=== PATIENT | male | born 1960 | race Caucasian/White ===

== ENCOUNTER → 2020-07-30 09:29 | Outpatient (REF) | payer OTHER, SELFPAY ==
--- NOTE | 2020-07-30 10:24 | ECG_ITS ---
Hook-up date: 2020-07-30 10:09:00 Duration: 47:59:00 Test Indications: PALPITATIONS Medications: 70061 QRS complexes 4 Ventricular ectopics which represent <1 % of total QRS comp. 413 Supraventricular ectopics which represent <1 % of total QRS comp. * Paced QRS complexs which represent % of total QRS comp. VENTRICULAR ECTOPY 4 Isolated 0 Bigeminal Cycles 0 Couplets 0 Runs 0 Beats in Runs * Beats LONGEST at * BPM at :: -- * Beats FASTEST at * BPM at :: -- SUPRAVENTRICULAR ECTOPY 339 Isolated 8 Couplets 9 Runs 58 Beats in Runs 13 Beats LONGEST at 83 BPM at 23:19:48 2020-07-30 4 Beats FASTEST at 145 BPM at 00:51:26 2020-07-31 HEART RATES 49 MIN at 16:34:53 2020-07-30 66 AVG 100 MAX at 23:14:11 2020-07-30 LONGEST RR 1.2480 secs at 16:34:53 2020-07-30 S-T LEVELS Channel 1 - 128 mm at 10:09:00 2020-07-30 - 128 mm at 10:09:00 2020-07-30 Channel 2 - 128 mm at 10:09:00 2020-07-30 - 128 mm at 10:09:00 2020-07-30 Channel 3 - 128 mm at 02:92:81 -- - 128 mm at 02:92:81 Basic rhythm Normal sinus rhythm No long pause or profound bradycardia Occasional Premature atrial complexes 2 short jovani of SVE c/w SVT, longest 5 beats at 143 bpm Patient did not report any symptoms in the diary Referred By: Shruthi Carrera Overread By: RUBÉN SHELBY MD
== END ==
LOC: HO.CARD 09:29
PROVIDERS: PCP Internal Medicine; Visit Provider Internal Medicine
DX: R00.2 Palpitations (principal)
CPT/HCPCS: 93225; 93226

== ENCOUNTER 2021-07-13 18:49 | Outpatient (REF) | payer OTHER, SELFPAY ==
--- NOTE | ~2021-07-13 | MR_ITS ---
EXAMINATION: MR LUMBAR SPINE WITHOUT CONTRAST CLINICAL INFORMATION: 60-year-old with low back pain. COMPARISON: None TECHNIQUE: MRI of the lumbar spine was obtained using routine sequences without contrast. FINDINGS: Coronal Alignment: Normal. Sagittal Alignment: Trace retrolisthesis at L2-L3 noted. Otherwise the lumbosacral spine is anatomically aligned with normal lordotic curvature. Lumbosacral Junction: Normal. Vertebral Bodies: Normal height. Disc Spaces and Endplates: Predominantly moderate intervertebral disc space height loss between L2-L3 and L5-S1 inclusive with multilevel disc desiccation and [id number] degrees of anterolateral spondylosis at these levels. Schmorl's nodes are noted at L2-L3. Spinal Canal: No abnormal developmental findings. Bone Marrow: Type I degenerative marrow signal changes seen along the endplates at L2-L3 with type II marrow signal changes along the endplates at L3-L4. Otherwise bone marrow signal intensity appears within normal limits. Conus Medullaris: Terminates at L1. Morphology and signal is normal. Intradural Nerve Roots: Within normal limits. L5-S1: Mild diffuse disc bulging is noted with a small right-sided inferior foraminal disc herniation which contacts the right L5 nerve root sleeve without nerve root compression or displacement. There is [id number] bilateral facet arthropathy without significant spinal canal stenosis. Mild right-sided neural foraminal narrowing noted. L4-L5: Small right subarticular to foraminal disc protrusion noted without neural impingement. Minimal posterior disc osteophyte complex noted with a superimposed left subarticular to inferior foraminal disc protrusion. Bscy-mf-lziormky bilateral facet arthropathy noted. Slight narrowing of the left subarticular zone noted with no significant central spinal canal stenosis. There is minimal foraminal narrowing on the left without neural impingement. L3-L4: Mild disc bulging is noted with a superimposed left paramedian to subarticular disc protrusion, with flattening of the dural sac slightly asymmetric to the left and mild facet arthropathy noted. No significant central spinal canal stenosis. There is mild bilateral subarticular recess narrowing and mild bilateral foraminal narrowing without definite neural impingement. L2-L3: Disc bulging is noted with superimposed bilateral extraforaminal/foraminal disc osteophyte complexes with slight flattening of the ventral dural sac and mild facet arthrosis without significant canal stenosis. There is mild foraminal narrowing bilaterally without neural impingement. L1-L2: Normal disc contour. No significant facet arthrosis, canal or neural foraminal stenosis. Paraspinal/Retroperitoneal: The paravertebral soft tissues are unremarkable. There is a partially imaged 4.3 cm cystic structure arising exophytically from the lower pole of the right kidney. Due to artifacts from presaturation pulse, it is not possible to determine if this is a simple-appearing cyst. Recommend renal ultrasound. MR/MR lumbar spine wo con IMPRESSION: 1. Multilevel DDD and spondylosis, with multilevel disc bulging between L2-L3 and L5-S1 inclusive with small right inferior foraminal disc herniation at L5-S1, bilateral subarticular to foraminal disc herniations at L4-L5, left paramedian to subarticular disc protrusion at L3-L4 and bilateral foraminal/extraforaminal disc osteophyte complexes at L2-L3 as detailed above. No significant central spinal canal stenosis. Mild degrees of multilevel subarticular recess narrowing as detailed above. 2. Multilevel bilateral facet arthropathy noted with predominantly mild degrees of multilevel bilateral neural foraminal narrowing. 3. A 4.3 cm cystic-appearing structure arising exophytically from the lower pole of the right kidney. Recommend renal ultrasound follow up as this cannot be determined to be a simple-appearing cyst on this exam. The [facility] staff will call to confirm receipt of this report with acknowledgement of the findings and any recommendations.
== END 2021-07-13 18:50 | disposition home or self-care (01) ==
LOC: HO.MRI 18:49
PROVIDERS: Visit Provider Internal Medicine
DX: M54.50 Low back pain, unspecified (principal)
CPT/HCPCS: 72148

== ENCOUNTER 2021-08-12 15:23 | Outpatient (REF) | payer OTHER, SELFPAY ==
--- NOTE | ~2021-08-12 | US_ITS ---
EXAMINATION: US RETROPERITONEAL COMPLETE (RENAL) CLINICAL INFORMATION: Renal cyst. COMPARISON: Previous lumbar spine MRI June 2021 and renal ultrasound November 2009. TECHNIQUE: Real-time imaging of the kidneys and bladder. FINDINGS: RIGHT KIDNEY: 13.6 x 6.6 x 6.7 cm (SAG x AP x TRV). The kidney is normal in size, contour, and echogenicity. Renal cortical thickness is normal. There is a 3.3 x 4.6 x 3.4 cm simple cyst in the lower pole and 1.3 x 1.4 x 1.6 cm simple cyst in the midpole. There is a 1.2 x 1.9 x 1.3 cm echogenic lesion in the upper pole suggestive of an angiomyolipoma. This measured 1.7 x 1.4 x 1.5 cm on November 2009 ultrasound and does not appear appreciably changed. There is a 6 mm echogenic density with twinkle artifact in the midpole questionable for a stone. No hydronephrosis. LEFT KIDNEY: 11.1 x 5.7 x 6.5 cm (SAG x AP x TRV). The kidney is normal in size, contour, and echogenicity. Renal cortical thickness is normal. There is a 2.2 x 1.9 x 3.1 cm slightly complex cyst in the midpole with single thin septation. There is a 5 mm echogenic density in the lower pole with twinkle artifact questionable for a stone. No hydronephrosis. BLADDER: Well distended and normal. Bilateral ureteral jets are demonstrated. Prevoid bladder volume is 179 mL. Postvoid bladder volume is 15 mL. US/US retroperitoneal comp IMPRESSION: Bilateral renal cysts. Question bilateral renal stones. 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
== END 2021-08-12 15:24 | disposition home or self-care (01) ==
LOC: HO.US 15:23
PROVIDERS: PCP Internal Medicine; Visit Provider Internal Medicine
DX: N28.1 Cyst of kidney, acquired (principal); M54.50 Low back pain, unspecified
CPT/HCPCS: 76770

== ENCOUNTER 2021-09-12 08:22 | Outpatient (REF) | payer OTHER, SELFPAY ==
[2021-09-12 09:39] LABS: Estimated Average Glucose 100 mg/dL; Hemoglobin A1c % 5.1 %
[2021-09-12 09:59] LABS: Alanine Aminotransferase 27 U/L (0-40); Albumin Level 4.3 g/dL (3.5-5.0); Alkaline Phosphatase 63 U/L (39-117); Anion Gap 10 (12-20); Aspartate Amino Transferase 23 U/L (5-37); Bilirubin Total 1.1 mg/dL (0.0-1.0); Blood Urea Nitrogen 12 mg/dL (9-16); Calcium 9.6 mg/dL (8.4-10.2); Carbon Dioxide 31 mmol/L (22-29); Chloride 106 mmol/L (96-108); Cholesterol 169 mg/dL; Estimated Glomerular Filt Rate > 60; Glucose Random 107 mg/dL (60-115); HDL Cholesterol 33 mg/dL; LDL Cholesterol Calculated 112 mg/dl; Potassium 4.2 mmol/L (3.3-5.1); Sodium 143 mmol/L (135-145); Total Protein 6.7 g/dL (6.5-8.0); Triglycerides 120 mg/dL
[2021-09-12 10:01] LABS: Appearance Urine CLEAR; Color Urine YELLOW; Glucose Urine UA NEG (NEG); Leukocyte Esterase Urine NEG (NEG); Nitrite Urine NEG (NEG); Specific Gravity - Urine 1.025 (1.005-1.025); Urine Blood TRACE (NEG); Urine Ketones NEG (NEG); Urine Protein 1+ MG/DL (NEG-TRACE)
[2021-09-12 10:21] LABS: Prostate Specific Antigen Scr 1.07 ng/mL (<0.05-4.0); Thyroid Stimulating Hormone 1.37 uIU/mL (0.32-4.0)
[2021-09-12 10:47] LABS: Mucus Urine TRACE /LPF; RBC Urine 0-2 /HPF (0); WBC Urine 0 /HPF (0-4)
[2021-09-12 11:01] LABS: Folate 7.3 ng/mL (> or = 4.0); Vitamin B12 203 pg/mL (200-900)
== END 2021-09-12 08:23 | disposition home or self-care (01) ==
LOC: HO.LAB 08:22
PROVIDERS: PCP Internal Medicine; Visit Provider Internal Medicine
DX: Z12.5 Encounter for screening for malignant neoplasm of prostate (principal); M54.50 Low back pain, unspecified; E78.00 Pure hypercholesterolemia, unspecified
CPT/HCPCS: 36415; 80053; 80061; 81001; 81003; 82607; 82746; 83036; 84153; 84439; 84443

== ENCOUNTER → 2021-10-28 08:56 | Outpatient (BNVA) | payer OTHER, SELFPAY | PROVIDERS: PCP Internal Medicine; Visit Provider Urology | DX: R39.15 Urgency of urination (principal); N52.9 Male erectile dysfunction, unspecified; D17.71 Benign lipomatous neoplasm of kidney; N28.1 Cyst of kidney, acquired | CPT/HCPCS: 51798; 99202 ==

== ENCOUNTER 2023-02-12 15:46 | Outpatient (AMB) | payer OTHER, SELFPAY ==
--- NOTE | 2023-02-12 15:47 | A.OFFPC_ITS ---
Intake Visit Reasons: follow up/ stroke Allergies lisinopril Allergy (Unknown, Verified 02/12/23 15:47) Unknown Medication List - Last Reconciled 02/12/23 by Shruthi Carrera MD [UNDER PADS disposable As directed] [adult briefs w/ tabs (Extra Large) As directed] amlodipine 10 mg PO DAILY apixaban (Eliquis) 5 mg PO BID [arm trough for wheelchair As directed] atorvastatin 40 mg PO DAILY baclofen 10 mg PO BID PRN 90 days cholecalciferol (vitamin D3) 125 mcg PO DAILY [commode w/ adjustment handle sides (for extra wide seat) As directed] Coreg (carvedilol) 12.5 mg PO BID NS Cozaar (losartan) 100 mg PO DAILY 90 days NS cyanocobalamin (vitamin B-12) 1,000 mcg PO DAILY diclofenac sodium 1% 4 grams topical QID docusate sodium 100 mg PO BID PRN gabapentin 600 mg (2 x 300 mg) PO DAILY 30 days [GAIT BELT As directed] [GLOVES as needed] [Hospital bed trapeze As directedshower chair w/ back and hospital bed trapeze] nystatin 1 appl topical TID nystatin PO sennosides 17.2 mg PO BEDTIME [Shower chair shower chair w/ back and hospital bed trapeze] [transfer CHAIR regular chair will not fit through doors] trazodone 50 mg PO BEDTIME PRN walker As directed front wheels with left side platform [wheelchair cushion As directed] [WIPES As directed] Tobacco use date assessed: 02/12/23 Fall risk assessment: No Falls in past year Last assessed Fall Risk: 02/12/23 Dental Screening Dental Screen Date: 02/12/23 HPI follow up/ stroke HPI Details 62-year-old obese male with hypertension lumbar degenerative disc disease GERD hypercholesterolemia last seen through telehealth January 12 2023 comes in today for follow-up through Telehealth patient was admitted to the hospital 10/01/2022 suffering a right basal ganglia stroke with right lateral intraventricular hemorrhage. Transferred to [facility] left facial droop dysarthria dysphagia left-sided weakness. Course complicated by kidney injury and aspiration pneumonia transferred to rehab developed sudden onset of chest pain, hemoptysis hypoxemia brought to [facility] Gen found to have pulmonary embolism and left lower extremity October 2022 sent back to [facility] on anticoagulation discharge home physical therapy patient mostly bed ridden and incontinent of urine and feces patient requires 1-2 person assist to the commode DVT review of the notes [facility] and able to expand services due to staffing patient informed the next step is rehab but declined history of intraparenchymal hematoma involving the right thalamus and posterior limb of the right internal capsule incidentally showing 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 Patient has dysarthria with a right gaze preference left nasal labial fold flattening left lower extremity withdrawal to noxious stimuli patient also has a history of hip fracture October 2022. Patient had blood work 01/31/2020 with hemoglobin at 13.1 and hematocrit o f 38.9. Noted to have a potassium 3.4 LDL of 47seen Neuro and advised MRI - askig for help with tranasportation PT 1 form. [facility] Medical History (Updated 02/12/23 @ 16:30 by Shruthi Carrera MD) Aortic dilatation Elevated blood pressure reading GERD (gastroesophageal reflux disease) Hypercholesterolemia Impaired glucose tolerance Obesity (BMI 30-39.9) Pulmonary nodule Renal cyst, left Urinary incontinence Vitamin B12 deficiency Vitamin D deficiency Surgical History History of inguinal hernia repair History of tonsillectomy Family History Father Bone cancer Mother Acute CVA (cerebrovascular accident) Social History Housing: House Alcohol intake: current Patient Tobacco Use Status: Never used Tobacco e-Cigarette/Vaping Use: Never Used Second Hand Smoke Exposure: No Current occupational status: employed Cognitive needs: No Hearing needs: No Vision needs: No Questionnaire PHQ-9 Over the last 2 weeks, how often have you been bothered by any of the following problems? 1. Little interest or pleasure in doing things: not at all 2. Feeling down, depressed, or hopeless: not at all 3. Trouble falling or staying asleep, or sleeping too much: not at all 4. Feeling tired or having little energy: not at all 5. Poor appetite or overeating: not at all 6. Feeling bad about yourself - or that you are a failure or have let yourself or your family down: not at all 7. Trouble concentrating on things, such as reading the newspaper or watching t elevision: not at all 8. Moving or speaking so slowly that other people could have noticed. Or the opposite - being so fidgety or restless that you have been moving around a lot more than usual: not at all 9. Thoughts that you would be better off or of hurting yourself in some way: not at all Total score: 0 Depression Screening Interpretation: Negative Source: Developed by Drs. Sanchez Rivera, Mike Ozuna and colleagues, with an educational tremayne from [employer]. Thrive Questionnaire Date Thrive assessed: 12/27/22 AUDIT C Alcohol Use Questionnaire (AUDIT-C) 1. How often do you have a drink containing alcohol?: Monthly or less 2. How many drinks containing alcohol do you have on a typical day when you are drinking?: 1 or 2 3. How often do you have six or more drinks on one occasion?: Never Total Score: 1 BRISEIDA-7 AMB Questionnaire BRISEIDA-7 Date BRISEIDA - 7 assessed: 12/27/22 Source: Developed by Drs. Sanchez Rivera, Britt Burr, Mike Aponte and colleagues, with an educational tremayne from [employer]. Physical exam (Primary Care) Tobacco/Smoking Status: Tobacco use Status Tobacco use date assessed 02/12/23 02/12/23 15:55 Patient Tobacco Use Status Never used Tobacco 02/12/23 15:55 e-Cigarette/Vaping Use Never Used 02/12/23 15:55 PHQ-9: PHQ-9 Score PHQ-9: Total score 0 02/12/23 16:11 Depression Screening Interpretation: Negative Thrive Assessment: Date of Thrive Assessment Date Thrive assessed 12/27/22 02/12/23 15:55 Telehealth Telehealth Location of provider rendering services: practice address Location of patient: address on file Patient Identification confirmed using: Name, : Yes Telehealth method: video ([phone] ) Patient verbally consented to treatment: Yes Patient verbally consented to billing insurance company: Yes Patient informed of any privacy concerns related to visit: Yes Minutes spent on Phone/Video with Pt.: 25 Assessment and Plan Assessment & Plan (1) Impaired glucose tolerance: Code(s): R73.02 - Impaired glucose tolerance (oral) Plan: Decrease the amount of carbohydrate intake, pasta, bread, rice and potatoes are all sugar and that is aside from all the sweet stuff, remember that fruits are good but they are Sweet also. (2) Hypercholesterolemia: Code(s): E78.00 - Pure hypercholesterolemia, unspecified Plan: Avoid fried foods, chicken skin, eggs, butter margarine, pastries and meat. Be it pork or beef they have a lot of cholesterol Patient is on atorvastatin 40 mg once a day LDL goal of less than 70 and triglyceride of less than (3) GERD (gastroesophageal reflux disease): Code(s): K21.9 - Gastro-esophageal reflux disease without esophagitis Plan: Avoid the foods that causes that usually spicy foods, tomato products, juices, coffee, soda and foods that your sensitive to. After eating do not lie down, allow 3-4 hours before in lie down. And keep the head of bed above 30 degrees to avoid the acid from going up. 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 Right lateral intraventricular hemorrhage incidental small saccular aneurysm distal M1 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 complicated by aspiration pneumonia sent to [facility] for physical therapy dysarthria a right gaze preference left nasolabial flattening left lower extremity withdrawal to noxious stimuli. Acute onset shortness of breath October 2022 pulmonary embolism centrally at the left right pulmonary artery level with multifocal pneumonia hip fracture right hip posterior acetabular rim October 2022 Code(s): I26.99 - Other pulmonary embolism without acute cor pulmonale Plan: continue with anticoagulation with Eliquis (7) Left leg DVT: Code(s): I82.402 - Acute embolism and thrombosis of unspecified deep veins of left lower extremity Plan: continue with anticoagulation with Eliquis (8) Hypertension: Code(s): I10 - Essential (primary) hypertension Plan: Continue with blood pressure medication. Decrease salt intake and exercise continue with amlodipine 10 mg once a day Coreg 12.5 mg twice a day Cozaar 75 mg once a day (9) Vitamin D deficiency: Code(s): E55.9 - Vitamin D deficiency, unspecified (10) Anemia: Code(s): D64.9 - Anemia, unspecified Orders: Orders Ferritin Today D64.9 - Anemia, unspecified IRON PROFILE Today D64.9 - Anemia, unspecified Reticulocyte Count Today D64.9 - Anemia, unspecified Vitamin B12 and Folate Today D64.9 - Anemia, unspecified Complete Blood Count Auto Diff Today D64.9 - Anemia, unspecified Medications: Changed From Cozaar (losartan) 75 mg (3 x 25 mg) PO DAILY 90 days 270 tabs 1RF NS I10 - Essential (primary) hypertension To Cozaar (losartan) 100 mg PO DAILY 90 days 90 tabs 1RF NS I10 - Essential (primary) hypertension From gabapentin 600 mg (2 x 300 mg) PO DAILY 30 days 60 caps 1RF I63.9 - Cerebral infarction, unspecified To gabapentin 600 mg (2 x 300 mg) PO DAILY 90 days 180 caps 1RF I63.9 - Cerebral infarction, unspecified Refilled apixaban (Eliquis) 5 mg PO BID 180 tabs 3RF I26.99 - Other pulmonary embolism without acute cor pulmonale, I82.402 - Acute embolism and thrombosis of unspecified deep veins of left lower extremity Coreg (carvedilol) must administer with a meal/food, patient choice 12.5 mg PO BID 180 tabs 3RF NS I10 - Essential (primary) hypertension amlodipine 10 mg PO DAILY 90 tabs 3RF I10 - Essential (primary) hypertension atorvastatin 40 mg PO DAILY 90 tabs 3RF E78.00 - Pure hypercholesterolemia, unspecified cholecalciferol (vitamin D3) 125 mcg PO DAILY 90 caps 3RF E55.9 - Vitamin D deficiency, unspecified Coding Level of Care Code Tele Est Pt Level 4 (20247) Diagnoses Impaired glucose tolerance R73.02 Hypercholesterolemia E78.00 GERD (gastroesophageal reflux disease) K21.9 CVA (cerebral vascular accident) I63.9 Cerebral aneurysm I67.1 Pulmonary embolism I26.99 Left leg DVT I82.402 Hypertension I10 Vitamin D deficiency E55.9 Anemia D64.9
--- OUTSIDE RECORDS SUMMARY | 2023-02-12 15:48 | XMS_ITS | Continuity of Care Document ---
Author Name Unknown Organization [facility] Address [address] [place] [id number] Care Team Providers Care Occup Ther Name Role Phone Shruthi Carrera MD Primary Care Physician [phone] [facility] [place]s): 12/13/22 - 01/12/[address] [id number] Attending Physician: Not on Staff, Attending MD Admitting Physician: Not on Staff, Admitting MD Referring Physician: Not on Staff, Referring MD Allergies, Adverse Reactions, Alerts Substance Reaction Severity Status lisinopril Joint pain Persistent cough Active Medications valsartan 80 mg oral tablet 80 mg, 1, tablet, By Mouth, Daily, Refills 0, Maintenance, 11/29/21 13:29:00 EDT, Partial fill uponpatient request if the prescription is for a schedule II opioid drug. Start Date: 11/29/21 Status: Ordered Patient Care team information Care Team Personnel Name: Shruthi Carrera MD Position: Reference Physician Member Role: PCP Address: Address: [address] [place] [id number] Care Team Related Persons Name: REMIGIO ATPIA Address: home [address] [place] [address]
--- OUTSIDE RECORDS SUMMARY | 2023-02-12 15:48 | XMS_ITS | Continuity of Care Document ---
Author Name Unknown Organization [facility] Address [address] [place] [id number]- Care Team Providers Care Tap Puller Name Role Phone Po Shruthi FRAZIER Primary Care Physician Encounter [facility] Date(s): 02/01/23 - 02/08/23 [facility] [address] [place] [address]- Encounter Diagnosis Pulmonary embolism(Discharge Diagnosis) - 02/01/23 Attending Physician: Dwayne Blakely MD Admitting Physician: Dwayne Blakely MD Referring Physician: Bree Bella NP Allergies, Adverse Reactions, Alerts Substance Reaction Severity Status lisinopril Joint pain Persistent cough Active Medications amLODIPine 10 mg oral tablet 0 Refills, Maintenance, 02/01/23 15:22:00 EDT, Partial fill upon patient request if the prescription is for a schedule II opioid drug. Start Date: 02/01/23 Status: Ordered atorvastatin 40 mg oral tablet 0 Refills, Maintenance, 02/01/23 15:22:00 EDT, Partial fill upon patient request if the prescription is for a schedule II opioid drug. Start Date: 02/01/23 Status: Ordered baclofen 10 mg oral tablet 10 mg, 1, tablet, By Mouth, 3 times a day, hold afternoon dose if drowsy, # 90 tablet, Refills 6, Tot. Refills 6, Maintenance, 02/08/23 9:44:00 EDT, Route to Pharmacy Electronically, [facility]/pharmacy #[id number], Partial fill upon patient request if the prescri... Start Date: 02/08/23 Stop Date: 09/06/23 Status: Ordered BACLOFEN 10 MG TABLET BACLOFEN 10 MG TABLET, 0 Refills, Maintenance, 02/01/23 15:23:00 EDT Start Date: 02/01/23 Status: Ordered Bilateral Juxtafit Knee-high Compression Garments with 2 pairs of liners Bilateral Juxtafit Knee-high Compression Garments with 2 pairs of liners, See Instructions, # 1 kit, Refills 0, Tot. Refills 0, Maintenance, Dx: Lymphedema Use daily up to 23 hours per day., 02/01/2315:43:00 EDT, Supply Start Date: 02/01/23 Status: Ordered carvedilol 12.5 mg oral tablet Refills 0, Maintenance, 02/01/23 15:22:00 EDT, Partial fill upon patient request if the prescription is for a schedule II opioid drug. Start Date: 02/01/23 Status: Ordered Cozaar 25 mg oral tablet Refills 0, Maintenance, 02/01/23 15:22:00 EDT, Partial fill upon patient request if the prescription is for a schedule II opioid drug. Start Date: 02/01/23 Status: Ordered diclofenac 1% topical gel 0 Refills, Maintenance, 02/01/23 15:22:00 EDT, Partial fill upon patient request if the prescription is for a schedule II opioid drug. Start Date: 02/01/23 Status: Ordered docusate sodium 100 mg oral capsule 0 Refills, Maintenance, 02/01/23 15:23:00 EDT, Partial fill upon patient request if the prescription is for a schedule II opioid drug. Start Date: 02/01/23 Status: Ordered Eliquis 5 mg oral tablet 0 Refills, Maintenance, 02/01/23 15:23:00 EDT, Partial fill upon patient request if the prescription is for a schedule II opioid drug. Start Date: 02/01/23 Status: Ordered ergocalciferol 8000 iu/ml oral solution 0 Refills, Maintenance, 02/01/23 15:23:00 EDT, Partial fill upon patient request if the prescription is for a schedule II opioid drug. Start Date: 02/01/23 Status: Ordered gabapentin 300 mg oral capsule Refills 0, Maintenance, 02/01/23 15:22:00 EDT, Partial fill upon patient request if the prescription is for a schedule II opioid drug. Start Date: 02/01/23 Status: Ordered nystatin topical 418060 u/gm powder 0 Refills, Maintenance, 02/01/23 15:22:00 EDT, Partial fill upon patient request if the prescription is for a schedule II opioid drug. Start Date: 02/01/23 Status: Ordered Super-Strength D-5000 oral tablet 0 Refills, Maintenance, 02/01/23 15:22:00 EDT, Partial fill upon patient request if the prescription is for a schedule II opioid drug. Start Date: 02/01/23 Status: Ordered traZODone 50 mg oral tablet Refills 0, Maintenance, 02/01/23 15:22:00 EDT, Partial fill upon patient request if the prescription is for a schedule II opioid drug. Start Date: 02/01/23 Status: Ordered valsartan 80 mg oral tablet 80 mg, 1, tablet, By Mouth, Daily, Refills 0, Maintenance, 11/29/21 13:29:00 EDT, Partial fill uponpatient request if the prescription is for a schedule II opioid drug. Start Date: 11/29/21 Status: Ordered Vitamin B-12 1000 mcg oral tablet Refills 0, Maintenance, 02/01/23 15:22:00 EDT, Partial fill upon patient request if the prescription is for a schedule II opioid drug. Start Date: 02/01/23 Status: Ordered Problem List Condition Confirmation Course Effective Dates Status H ealth Status Informant Hypertensive disorder 1 Confirmed 10/22/22 Active Intraparenchymal hemorrhage of brain 2 Confirmed 10/11/22 Active Pulmonary embolism 3 Confirmed 10/22/22 Active 1Outside Source Comment: Last Assessment & Plan: #HTN BP stable since admission. Patient symptomatically resolving and PE stable. No signs of RV strain or hypotension. -Continue coreg -Restart amlodipine and losartan 10/26. 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 Dysphagia: HIDES INSPECTOR Sleep: Monitoring Trazodone 50 mg qhs Behavior: Monitoring Neurostimulation: Monitoring Amantadine 100 mg daily dc'ed Mood: Monitoring Pain: Tylenol 650 mg q6h prn Gabapentin 300 mg qhs Diclofenac gel 4 times daily DVT Prophylaxis: Therapeutic anticoagulation Encourage mobility, monitor for signsand symptoms of DVT Bowel/FEN/GI: Timed voiding Titrate to home regimen, change q1-2 days Adult/Pediatric nutrition supplements Supplement: Ensure Plus High Protein [place]; Number of servings: One; Frequency: Breakfast, Dinner Therapeutic trial tray per HIDES INSPECTOR Therapeutic trial tray per HIDES INSPECTOR Diet Dysphagia; Minced and moist (IDDSI 5); Thin (IDDSI 0); Swallow safety instructions: Group/Distant Supervision Bladder: Timed voiding Dysuria-UA and Ucx 10/30 negative Safety/precautions: Fall, aspiration Other medical problems #GPC blood cultures ID consult Repeat cultures 10/31 #PE #LLE DVT Apixaban 10 mg BID, ED 10/31 Apixaban 5 mg BID, 11/01- (3-6 mo duration) Outpatient US #Pneumonitis Levofloxacin 750 mg, ED 10/31 #HTN (144-154)/(85-90) 154/90 (11/26 1548) Amlodipine 10 mg daily Losartan 75 mg daily Coreg 12.5 mg BID #HLD Atorvastatin 40 mg daily #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 Reassuringly no hemodynamic instability and no evidence of RV strain on TTE and CT chest. Currently stable on 2L O2. For systemic AC, he started on heparin gtt, and per vascular recs and neurosurgery clearance (given stable CTH and neuro exams), switched to apixaban on 10/25. Symptomatically, patient feels improvement in his pleuriticpain. -CT Chest: with PE at L/R PA level, multifocal triangular nodular opacities, and diffuse bronchial wall thicken ing with evidence of mucus plugging. - TTE: no evidence of acute RV strain. Plan: -Start apixaban 5mg bid (10mg loading) -Appreciate vascular medicine and NSGY recs Diagnosis Diagnosis Type Effective Dates Health Status Cl inical Service Informant Pulmonary embolism Discharge Diagnosis 02/01/23 Procedures Procedure Date Related Diagnosis Body Site Status History of repair of inguinal hernia Completed History of tonsillectomy Completed Vital Signs Most recent to oldest [Reference Range]: 1 Height 188 cm (02/01/23 3:23 PM) Weight 100 kg (02/01/23 3:23 PM) Oxygen Saturation [94-100 %] 97 % (02/01/23 3:23 PM) Pulse Rate [55-90 bpm] 63 bpm (02/01/23 3:23 PM) Body Mass Index [18.5-24.99 kg/m2] 28.29 kg/m2 *H* (02/01/23 3:23 PM) Blood Pressure [90-138/55-84 mm Hg] 144/ 90mm Hg *H* (02/01/23 3:23 PM) Mode of Delivery (Oxygen) Room air (02/01/23 3:23 PM) Blood pressure sites Arm, right (02/01/23 3:23 PM) Weight Obtained Via Patient/family state d (02/01/23 3:23 PM) Social History Social History Type Response Smoking Status Never (less than 100 in lifetime) entered on: 02/01/23 Sex Patient Care team information Care Team Personnel Name: Shruthi Carrera MD Position: Reference Physician Member Role: PCP Address: Address: [address] [place] [address]- Care Team Related Persons Name: REMIGIO TAPIA Address: home [address] [place] [address]
--- OUTSIDE RECORDS SUMMARY | 2023-02-12 15:48 | XMS_ITS | Continuity of Care Document ---
Author Name Unknown Organization [facility] Address [address] [place] [id number]- Care Team Providers Care Sprinkler Inspector Name Role Phone Po Shruthi FRAZIER Primary Care Physician Encounter [facility] Date(s): 01/09/23 - 02/08/23 [facility] [address] [place] [address]- Allergies, Adverse Reactions, Alerts Substance Reaction Severity [...] EDT, Route to Pharmacy Electronically, [facility]/pharmacy #[id number], Partial fill upon patient request if the [...] Start Date: 02/01/23 Status: Ordered nystatin topical 740379 u/gm powder 0 Refills, Maintenance, 02/01/23 15:22:00 [...] Plan: Enroll in CVA rehab program R [facility] NIHSS: 13 TPA: no IA: no Secondaryprevention: MCT BP as noted below Statin as noted below Follow up: 12/21 1300 stroke, [place] Mobility/ADL Dysfunction/Cognition: 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 Dysphagia: EMERGENCY CREW SUPERVISOR Sleep: Monitoring Trazodone 50 mg qhs Behavior: Monitoring Neurostimulation: Monitoring Amantadine 100 mg daily dc'ed Mood: Monitoring Pain: Tylenol 650 mg q6h prn Gabapentin 300 mg qhs Diclofenac gel 4 times daily DVT Prophylaxis: Therapeutic anticoagulation Encourage mobility, monitor for signsand symptoms of DVT Bowel/FEN/GI: Timed voiding Titrate to home regimen, change q1-2 days Adult/Pediatric nutrition supplements Supplement: Ensure Plus High Protein [place]; Number of servings: One; Frequency: Breakfast, Dinner Therapeutic trial tray per EMERGENCY CREW SUPERVISOR Therapeutic trial tray per EMERGENCY CREW SUPERVISOR Diet Dysphagia; Minced and moist (IDDSI 5); [...] loading) -Appreciate vascular medicine and NSGY recs Social History Social History Type Response Smoking Status Never (less than 100 in lifetime) entered on: 02/01/23 Sex Patient Care team information Care Team Personnel Name: Shruthi Carrera MD Position: Reference Physician Member Role: PCP Address: Address: [address] [place] [id number]- Care Team Related Persons Name: REMIGIO TAPIA Address: home [address] [place] [id number]
== END 2023-02-12 16:45 | disposition home or self-care (01) ==
LOC: HO.HMGH 15:46
PROVIDERS: PCP Internal Medicine; Visit Provider Internal Medicine
DX: R73.02 Impaired glucose tolerance (oral) (principal); K21.9 Gastro-esophageal reflux disease without esophagitis; I82.402 Acute embolism and thrombosis of unspecified deep veins of left lower extremity; I26.99 Other pulmonary embolism without acute cor pulmonale; I67.1 Cerebral aneurysm, nonruptured; E78.00 Pure hypercholesterolemia, unspecified; I63.9 Cerebral infarction, unspecified; I10 Essential (primary) hypertension; E55.9 Vitamin D deficiency, unspecified; D64.9 Anemia, unspecified
CPT/HCPCS: 99214

== ENCOUNTER 2023-03-12 17:18 | Outpatient (AMB) | payer OTHER, SELFPAY ==
--- NOTE | 2023-03-12 17:20 | A.OFFPC_ITS ---
Intake Visit Reasons: Allergic reaction/ [phone] Allergies lisinopril Allergy (Unknown, Verified 03/12/23 17:20) Unknown Tobacco use date assessed: 02/12/23 Fall risk assessment: No Falls in past year Last assessed Fall Risk: 03/12/23 Dental Screening Dental Screen Date: 03/12/23 Did you have a dental visit in the last 12 months?: Yes Did you have a dental problem in the last 6 months where you did not have access to dental care?: No Was dental information given to patient?: Patient has dentist HPI Allergic reaction/ [phone] HPI Details 62-year-old obese male with a history of CVA impaired glucose tolerance hypercholesterolemia GERD pulmonary embolism cerebral aneurysm left leg DVT hypertension coming in for follow-up through Telehealth. Last seen for tele health January 2023 blood work was requested adjustment of blood pressure done. With the CVA(intracerebral hemorrhage involving right basal ganglia posterior limb internal capsule) disability left hemiplegia and loss of motor function patient was referred for physical therapy and the [facility]. Patient has seen Neurology [facility] advised 120/80 goal of blood pressure advised MRI of the brain 3 months follow-up on the right MCA aneurysm disability left upper extremity lack of movement long-term disabled left shoulder sling to avoid subluxation of the left shoulder baclofen increase 10 mg 3 times a day ant icoagulation for 6 months and depending on vascular/palmar avoid NSAIDs concern about sleep study also. Patient has beendoing PT and OT occurs pain on the legs still. BP at home is am 140/90 after BP med still wanting brand name of cozaar and coreg although discussed - hard Patient feels that brand name make this better. Patient asking me to call the insurance company to approve of brand name Cozaar and Coreg as the patient feels that in [place] general that they were using the brand name which controls the blood pressure better than the generic. Patient on physical therapy complains of left knee pain and wants an x-ray. Patient states the blood pressure remains to be high in the morning but once taking the medication would drop to normal levels. Decline increasing dose of medication and insistent on brand name prescription. [facility] Medical History (Updated 03/12/23 @ 18:17 by Shruthi Carrera MD) Aortic dilatation Elevated blood pressure reading GERD (gastroesophageal reflux disease) Hypercholesterolemia Impaired glucose tolerance Obesity (BMI 30-39.9) Pulmonary nodule Renal cyst, left Urinary incontinence Vitamin B12 deficiency Vitamin D deficiency Surgical History History of inguinal hernia repair History of tonsillectomy Family History (Updated 03/12/23 @ 17:21 by Daniela Valero [facility]) Father Bone cancer Mother Acute CVA (cerebrovascular accident) Social History Housing: House Alcohol intake: current Patient Tobacco Use Status: Never used Tobacco e-Cigarette/Vaping Use: Never Used Second Hand Smoke Exposure: No Current occupational status: employed Cognitive needs: No Hearing needs: No Vision needs: No Questionnaire PHQ-9 Over the last 2 weeks, how often have you been bothered by any of the following problems? 1. Little interest or pleasure in doing things: not at all 2. Feeling down, depressed, or hopeless: not at all 3. Trouble falling or staying asleep, or sleeping too much: not at all 4. Feeling tired or having little energy: not at all 5. Poor appetite or overeating: not at all 6. Feeling bad about yourself - or that you are a failure or have let yourself or your family down: not at all 7. Trouble concentrating on things, such as reading the newspaper or watching television: not at all 8. Moving or speaking so slowly that other people could have noticed. Or the opposite - being so fidgety or restless that you have been moving around a lot more than usual: not at all 9. Thoughts that you would be better off or of hurting yourself in some way: not at all Total score: 0 Depression Screening Interpretation: Negative Source: Developed by Drs. Sanchez Rivera, Britt Burr, Mike Aponte and colleagues, with an educational tremayne from [employer]. Thrive Questionnaire Date Thrive assessed: 12/27/22 AUDIT C Alcohol Use Questionnaire (AUDIT-C) 1. How often do you have a drink containing alcohol?: Monthly or less 2. How many drinks containing alcohol do you have on a typical day when you are drinking?: 1 or 2 3. How often do you have six or more drinks on one occasion?: Never Total Score: 1 BRISEIDA-7 AMB Questionnaire BRISEIDA-7 Date BRISEIDA - 7 assessed: 12/27/22 Source: Developed by Drs. Sanchez Rivera, Britt Burr, Mike Aponte and colleagues, with an educational tremayne from [employer]. Physical exam (Primary Care) Tobacco/Smoking Status: Tobacco use Status Tobacco use date assessed 02/12/23 03/12/23 17:21 Patient Tobacco Use Status Never used Tobacco 03/12/23 17:21 e-Cigarette/Vaping Use Never Used 03/12/23 17:21 PHQ-9: PHQ-9 Score PHQ-9: Total score 0 03/12/23 17:21 Depression Screening Interpretation: Negative Thrive Assessment: Date of Thrive Assessment Date Thrive assessed 12/27/22 03/12/23 17:21 Telehealth Telehealth Location of provider rendering services: practice address Location of patient: address on file Patient Identification confirmed using: Name, : Yes Telehealth method: video ([phone] ) Patient verbally consented to treatment: Yes Patient verbally consented to billing insurance company: Yes Patient informed of any privacy concerns related to visit: Yes Minutes spent on Phone/Video with Pt.: 25 Assessment and Plan Assessment & Plan (1) CVA (cerebral vascular accident): Comment: 09/30/2022 intraparenchymal hematoma involving the right thalamus and posterior limb of the right internal capsule incidentally small saccular aneurysm involving the distal M1 segment of the right middle cerebral artery measuring 2.2 mm from based apex 61-year-old male left facial droop and left-sided weakness 2.8 cm right basal ganglia intraparenchymal hemorrhage with 2 mm MLS. Right lateral intraventricular hemorrhage incidental small saccular aneurysm distal M1 [facility] 10/11/2022 pulmonary embolism on anticoagulation , aspiration pneumonia Code(s): I63.9 - Cerebral infarction, unspecified Plan: Control the cholesterol, weight, blood pressure (2) Cerebral aneurysm: Comment: September intraparenchymal hematoma involving the right thalamus and posterior limb of the right internal capsule incidentally small saccular aneurysm involving the distal M1 segment of the right middle cerebral artery measuring 2.2 mm from based apex Code(s): I67.1 - Cerebral aneurysm, nonruptured Plan: Patient follows up with Neurology. MRI requested 3 months after (3) Pulmonary embolism: Comment: 62-year-old hypertension, right basal ganglia and right lateral intraventricular hemorrhage residual left-sided deficit recent aspiration pneumonia September 2022 M1 aneurysm neurosurgery September 30 [facility] complicated by aspiration pneumonia sent to [facility] for physical therapy dysarthria a right gaze preference left nasolabial flattening left lower extremity withdrawal to noxious stimuli. Acute onset shortness of breath October 2022 pulmonary embolism centrally at the left right pulmonary artery level with multifocal pneumonia hip fracture right hip posterior acetabular rim October 2022 Code(s): I26.99 - Other pulmonary embolism without acute cor pulmonale Plan: Continue with anticoagulation (4) Left leg DVT: Code(s): I82.402 - Acute embolism and thrombosis of unspecified deep veins of left lower extremity Plan: Continue with anticoagulation (5) Hypercholesterolemia: Code(s): E78.00 - Pure hypercholesterolemia, unspecified Plan: Avoid fried foods, chicken skin, eggs, butter margarine, pastries and meat. Be it pork or beef they have a lot of cholesterol LDL goal of less than 70 and triglyceride of less than 150 (6) Hypertension: Code(s): I10 - Essential (primary) hypertension Plan: Continue with blood pressure medication. Decrease salt intake and exercise patient is on amlodipine 10 mg once a day Coreg 12.5 mg twice a day Cozaar 75 mg once a day. Will try to get the number/prior authorization for brand names of Cozaar and Coreg (7) Left knee pain: Code(s): M25.562 - Pain in left knee Orders: Orders XR knee LT 2V Today M25.562 - Pain in left knee Coding Level of Care Code Tele Est Pt Level 4 (62503) Diagnoses CVA (cerebral vascular accident) I63.9 Cerebral aneurysm I67.1 Pulmonary embolism I26.99 Left leg DVT I82.402 Hypercholesterolemia E78.00 Hypertension I10 Left knee pain M25.562
--- OUTSIDE RECORDS SUMMARY | 2023-03-12 17:20 | XMS_ITS | Continuity of Care Document ---
Author Name Unknown Organization [facility] Address [address] [place] [phone]- Care Team Providers Care E Commerce Manager Name Role Phone Po Shruthi FRAZIER Primary Care Physician Encounter 12/14/22 - 02/23/23 [facility] [address] [place] [address]- Discharge Disposition: GOALS MET Allergies, Adverse Reactions, Alerts Substance Reaction Severity [...] 02/08/23 9:44:00 EDT, Route to Pharmacy Electronically, [facility]/pharmacy #[id number], Partial fill upon patient request if the [...] Start Date: 02/01/23 Status: Ordered nystatin topical 917680 u/gm powder 0 Refills, Maintenance, 02/01/23 15:22:00 [...] Plan: Enroll in CVA rehab program R [facility] NIHSS: 13 TPA: no IA: no Secondaryprevention: MCT BP as noted below Statin as noted below Follow up: 12/21 1300 stroke, [place] Mobility/ADL Dysfunction/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 Sleep: Monitoring Trazodone 50 mg qhs Behavior: Monitoring Neurostimulation: Monitoring Amantadine 100 mg daily dc'ed Mood: Monitoring Pain: Tylenol 650 mg q6h prn Gabapentin 300 mg qhs Diclofenac gel 4 times daily DVT Prophylaxis: Therapeutic anticoagulation Encourage mobility, monitor for signsand symptoms of DVT Bowel/FEN/GI: Timed voiding Titrate to home regimen, change q1-2 days Adult/Pediatric nutrition supplements Supplement: Ensure Plus High Protein [place]; Number of servings: One; Frequency: Breakfast, Dinner Therapeutic trial tray per TERMINAL MANAGER Therapeutic trial tray per TERMINAL MANAGER Diet Dysphagia; Minced and moist (IDDSI 5); [...] Reference Physician Member Role: PCP Address: Address: [address] [place] [address]- Care Team Related Persons Name: REMIGIO TAPIA Address: home [address] [place] [address]
--- OUTSIDE RECORDS SUMMARY | 2023-03-12 17:20 | XMS_ITS | Continuity of Care Document ---
Author Name Unknown Organization [facility] Address [address] [facility], [address] Floor, [address] [place] [id number] Care Team Providers Care Internal Corrosion Specialist Name Role Phone Po Shruthi FRAZIER Primary Care Physician Encounter [facility] Date(s): 02/08/23 - 03/10/23 [facility] [address], [address], [address] [place] [id number]- Attending Physician: Jamey [id number] Admitting Physician: AdmtrToy Referring Physician: Admtr, Ar8 Allergies, Adverse Reactions, Alerts Substance Reaction Severity [...] 02/08/23 9:44:00 EDT, Route to Pharmacy Electronically, [facility]/pharmacy #[id number], Partial fill upon patient request if the [...] Start Date: 02/01/23 Status: Ordered nystatin topical [id number] u/gm powder 0 Refills, Maintenance, 02/01/23 15:22:00 [...] 1300 stroke, [place] Mobility/ADL Dysfunction/Cognition: 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: SANITOR Sleep: Monitoring Trazodone 50 mg qhs Behavior: Monitoring Neurostimulation: Monitoring Amantadine 100 mg daily dc'ed Mood: Monitoring Pain: Tylenol 650 mg q6h prn Gabapentin 300 mg qhs Diclofenac gel 4 times daily DVT Prophylaxis: Therapeutic anticoagulation Encourage mobility, monitor for signsand symptoms of DVT Bowel/FEN/GI: Timed voiding Titrate to home regimen, change q1-2 days Adult/Pediatric nutrition supplements Supplement: Ensure Plus High Protein Sieper; Number of servings: One; Frequency: Breakfast, Dinner Therapeutic trial tray per SANITOR Therapeutic trial tray per SANITOR Diet Dysphagia; Minced and moist (IDDSI 5); Thin (IDDSI 0); Swallow safety instructions: Group/Distant Supervision Bladder: Timed voiding Dysuria-UA and Ucx 10/30 negative Safety/precautions: Fall, aspiration Other medical problems #GPC blood cultures ID consult Repeat cultures 10/31 #PE #LLE DVT Apixaban 10 mg BID, ED 10/31 Apixaban 5 mg BID, 11/01- (3-6 mo duration) Outpatient #Pneumonitis Levofloxacin 750 mg, ED 10/31 #HTN [...] Reference Physician Member Role: PCP Address: Address: [address] [place] [id number]- [place] Care Team Related Persons Name: REMIGIO TAPIA Address: home [address] [place] [address]
== END 2023-03-13 10:51 | disposition home or self-care (01) ==
LOC: HO.HMGH 17:18
PROVIDERS: PCP Internal Medicine; Visit Provider Internal Medicine
DX: I10 Essential (primary) hypertension (principal); I26.99 Other pulmonary embolism without acute cor pulmonale; I82.402 Acute embolism and thrombosis of unspecified deep veins of left lower extremity; I67.1 Cerebral aneurysm, nonruptured; E78.00 Pure hypercholesterolemia, unspecified; I63.9 Cerebral infarction, unspecified; M25.562 Pain in left knee
CPT/HCPCS: 99214

== ENCOUNTER 2023-06-05 13:07 | Outpatient (AMB) | payer OTHER, SELFPAY ==
[2023-06-05 13:43] VITALS: BP 132/78; PULSE 65; O2SAT 97; BMI 32.1
--- NOTE | 2023-06-05 13:43 | A.OFFVIS_ITS ---
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 The patient is a 62-year-old gentleman who was in his usual state health until the beginning of the year when he developed an acute right-sided intraparenchymal hemorrhage and stroke with significant left-sided weakness. He was treated acutely in [facility] and then transferred to [facility] in [place]. While in rehab back in October 2022 the patient developed worsening chest discomfort pleuritic in nature along with shortness of breath hemoptysis. He was admitted to [facility] where he was diagnosed with pulmonary emboli and extensive extremity DVT in the left side. It was initially placed on heparin in neurosurgery was consulted because of his relatively recently. Is felt to be stable and the patient also was hemodynamically stable. The patient was placed on Eliquis. He has been on Eliquis ever since. He was high still having significant left lower extremity discomfort and swelling. Therefore he was referred to a vascular surgeon at [facility]. The patient did have lower extremity Dopplers done recently on May 25 it was noted to have still extensive blood clots involving the femoral brain popliteal vein with some degree of chronicity. Breathing arechiga the patient denies any further chest pains or shortness of breath. Although he is limited from a physical activity standpoint. He is currently wheelchair in does have significant limitations to the movement of the left side. On further questioning still the patient does state that even before the stroke he was having some issues with leg spasms and heaviness and discomfort of the left lower extremity. The patient denies ever having history of blood clots or family history of blood clots. Although with this symptoms that he had the question comes up as far as the possibility of previous blood clots and potentia lly of [id number] shunt that will predispose him to strokes. Therefore will have him undergo ECHO with bubble study and the patient should also undergo a repeat CTA to assess if he still has an clot burden in the lungs especially since he still has them in the like. But, with a history of intracranial hemorrhage the use of anticoagulation becomes tricky specially when you consider other agents such as Coumadin. We will do the initial evaluation but I do believe that an evaluation also from Hematology would be important in view of his comorbidities. We will start with additional blood work to assess for hypercoagulable state while we wait for the other studies. [facility] Medical History (Updated 06/05/23 @ 23:01 by Piotr Gil MD) DVT (deep venous thrombosis) Urinary incontinence Renal cyst, left GERD (gastroesophageal reflux disease) Aortic dilatation Vitamin D deficiency Obesity (BMI 30-39.9) Hypercholesterolemia Vitamin B12 deficiency Pulmonary nodule Elevated blood pressure reading Impaired glucose tolerance Surgical History History of inguinal hernia repair History of tonsillectomy Family History (Updated 03/12/23 @ 17:21 by Daniela Valero CMA) Father Bone cancer Mother Acute CVA (cerebrovascular accident) Housing: House Alcohol intake: current Patient Tobacco Use Status: Never used Tobacco e-Cigarette/Vaping Use: Never Used Second Hand Smoke Exposure: No Current occupational status: employed Cognitive needs: No Hearing needs: No Vision needs: No Review of Systems Const Denies fever(s) Eyes Reports change in vision ENT Reports change in voice Card Denies chest pain and Reports dyspnea on exertion Resp Reports dyspnea on exertion and Denies wheezing GI Denies abdominal pain Musc Reports abnormal gait Skin/Breast Denies rash Neuro Reports abnormal gait, Reports focal weakness and Reports Sensory deficit (Neuro) Gianni/Lymph Denies easy bleeding and Denies easy bruising Aller/Immun Denies wheezing Physical Exam Vital Signs: Last Vital Signs Pulse 65 06/05/23 13:43 BP 132/78 06/05/23 13:43 Pulse Ox 97 06/05/23 13:43 BMI result Body Mass Index 32.1 Const General: comfortable Orientation/consciousness: patient oriented x3 HEENT Head: Yes normocephalic Neck Neck: Yes supple Chest Chest palpation & inspection: normal inspection of the chest Resp Effort & Inspection: normal respiratory effort Auscultation: diminished lung sounds Cardio Rate: regular rate Rhythm: regular rhythm Heart sounds: S1 normal heart sound present and S2 normal heart sound present GI Palpation (GI): Soft to palpation Skin General skin exam: no rashes or lesions noted Neuro Other: left sided weakness with contractures General: patient oriented x3 Sensory Exam: Sensory deficit (Neuro) Extrem General: No clubbing and No cyanosis Results Reviewed Results Reviewed: personally reviewed data from [facility] personally reviewed the LLE dopplers Assessment & Plan Assessment & Plan (1) Left leg DVT: Comment: persistent extensive DVT LLE Code(s): I82.402 - Acute embolism and thrombosis of unspecified deep veins of left lower extremity Qualifiers: Affected thrombotic vein of extremity: femoral Chronicity: chronic Qualified Code(s): I82.512 - Chronic embolism and thrombosis of left femoral vein (2) Pulmonary embolism: Comment: October 2022 Code(s): I26.99 - Other pulmonary embolism without acute cor pulmonale Qualifiers: Pulmonary embolism type: unspecified Chronicity: chronic Acute cor pulmonale presence: without acute cor pulmonale Qualified Code(s): I27.82 - Chronic pulmonary embolism (3) CVA (cerebral vascular accident): Code(s): I63.9 - Cerebral infarction, unspecified Qualifiers: CVA mechanism: unspecified Qualified Code(s): I63.9 - Cerebral infarction, unspecified Plan Bloodwork to assess hypercoagulable state ECHO with bubble study to assess potential right to left shunt CTA to reassess chronic thrombo-embolic disease PFTs continue Eliquis BID F/U with vascular surgery re: chronic DVT on the left May benefit from a hematology consult especially with his ICB history F/U 6-8 weeks Orders: Orders Lupus Anticoagulant Panel Today I26.99 - Other pulmonary embolism without acute cor pulmonale, I82.402 - Acute embolism and thrombosis of unspecified deep veins of left lower extremity, I82.409 - Acute embolism and thrombosis of unspecified deep veins of unspecified lower extremity Protein S Activity reflex Ag Today I26.99 - Other pulmonary embolism without acute cor pulmonale, I82.402 - Acute embolism and thrombosis of unspecified deep veins of left lower extremity, I82.409 - Acute embolism and thrombosis of unspecified deep veins of unspecified lower extremity Protein C Activity Reflex Ag Today I26.99 - Other pulmonary embolism without acute cor pulmonale, I82.402 - Acute embolism and thrombosis of unspecified deep veins of left lower extremity, I82.409 - Acute embolism and thrombosis of unspecified deep veins of unspecified lower extremity CA echo transthoracic complete Today I26.99 - Other pulmonary embolism without acute cor pulmonale, I27.20 - Pulmonary hypertension, unspecified PFT pulmonary function test Today I26.99 - Other pulmonary embolism without acute cor pulmonale Factor V Leiden Today I26.99 - Other pulmonary embolism without acute cor pulmonale, I82.402 - Acute embolism and thrombosis of unspecified deep veins of left lower extremity, I82.409 - Acute embolism and thrombosis of unspecified deep veins of unspecified lower extremity Prothrombin [id number] Today I26.99 - Other pulmonary embolism without acute cor pulmonale, I82.402 - Acute embolism and thrombosis of unspecified deep veins of left lower extremity, I82.409 - Acute embolism and thrombosis of unspecified deep veins of unspecified lower extremity Anti-Thrombin III Activity Today I26.99 - Other pulmonary embolism without acute cor pulmonale, I82.402 - Acute embolism and thrombosis of unspecified deep veins of left lower extremity, I82.409 - Acute embolism and thrombosis of unspecified deep veins of unspecified lower extremity CT angio chest PE protocol Today I26.99 - Other pulmonary embolism without acute cor pulmonale Coding Level of Care Code New Pt Level 5 (15976) Diagnoses Chronic deep vein thrombosis (DVT) of femoral vein of left lower extremity I82.512 Affected thrombotic vein of extremity: femoral Chronicity: chronic Chronic pulmonary embolism without acute cor pulmonale, unspecified pulmonary embolism type I27.82 Pulmonary embolism type: unspecified Chronicity: chronic Acute cor pulmonale presence: without acute cor pulmonale Cerebrovascular accident (CVA), unspecified mechanism I63.9 CVA mechanism: unspecified Time Spent (min) 60
== END 2023-06-05 14:16 | disposition home or self-care (01) ==
PROVIDERS: PCP Internal Medicine; Referring Provider Internal Medicine; Visit Provider Hospitalist
DX: I27.82 Chronic pulmonary embolism (principal); I82.512 Chronic embolism and thrombosis of left femoral vein; I63.9 Cerebral infarction, unspecified
CPT/HCPCS: 99205

== ENCOUNTER → 2023-06-05 13:07 | Outpatient (BNVA) | payer OTHER, SELFPAY | PROVIDERS: PCP Internal Medicine; Referring Provider Internal Medicine; Visit Provider Hospitalist | DX: I82.512 Chronic embolism and thrombosis of left femoral vein (principal); I27.82 Chronic pulmonary embolism; I26.99 Other pulmonary embolism without acute cor pulmonale; I63.9 Cerebral infarction, unspecified | CPT/HCPCS: 99202 ==

== ENCOUNTER 2023-06-10 18:29 | Emergency (ER) | payer OTHER, SELFPAY ==
--- NOTE | ~2023-06-10 | CT_ITS ---
EXAMINATION: CT CHEST, ABDOMEN AND PELVIS WITH CONTRAST CLINICAL INFORMATION: Reason for Exam L rib pain s/p fall on eliquis. Hematoma L flank COMPARISON: No pertinent prior studies are available for comparison TECHNIQUE: Multidetector volumetric imaging was performed from the thoracic inlet through the pubic symphysis following the administration of: Oral contrast: No Intravenous contrast: 100 mL Omnipaque 350 No contrast reaction reported Sagittal and coronal reformatted images were obtained on the technologist workstation. This CT examination was performed using dose optimization techniques as appropriate, variously including the following: *Automated exposure control. *Adjustment of mA and/or kV according to patient size (this includes techniques or standardized protocols for targeted exams where dose is matched to indication/reason for exam; i.e. extremities or head). *Use of iterative reconstruction technique. Total exam dose-length product 445 mGy-cm FINDINGS: LUNG: No focal consolidation, nodules or masses. Hypoventilatory changes are present at both lung bases. PLEURA: Trace amount of left-sided pleural effusion is seen. No evidence of any pneumothorax. MEDIASTINUM: Normal heart size. No pericardial effusion. No hilar or mediastinal lymphadenopathy. VASCULAR: No thoracic aortic aneurysm or dissection. Central pulmonary arteries opacify normally. CHEST WALL/AXILLA: No axillary or internal mammary lymphadenopathy. LIVER, GALLBLADDER, AND BILIARY TREE: The liver is normal in size, shape, and attenuation. No focal hepatic lesion or biliary ductal dilatation is present. The gallbladder is unremarkable with no evidence of radiopaque gallstones, gallbladder wall thickening, or obvious pericholecystic inflammatory changes. PANCREAS: Normal; no mass or surrounding fluid. SPLEEN: Normal size. No focal lesion. ADRENAL GLANDS: Normal; no mass. KIDNEYS AND URETERS: The kidneys are normal in size, shape, and attenuation. No hydronephrosis, hydroureter, or calculi. Multiple circumscribed hypodense lesions are noted bilaterally, most consistent with cortical renal cysts. Subcentimeter circumscribed fat-containing lesion at mid lateral cortex of the right kidney with mean Hounsfield value of -83 (326:12) consistent with a small angiomyolipoma. GASTROINTESTINAL TRACT: Stomach and small bowel non-dilated. No colonic wall thickening or pericolonic inflammatory changes. Normal appendix. ABDOMINAL WALL: Soft tissue stranding is noted within the left lower posterior chest wall musculature and subcutaneous fat and also along the left lateral flank subcutaneous level, most consistent with inflammation/trace hematoma. No evidence of any localized discrete measurable fluid collection or hematoma is visualized. LYMPHOVASCULAR STRUCTURES: No lymphadenopathy. The aorta is unremarkable. BLADDER: Asymmetric subtle apparent soft tissue thickening is seen at the left-sided base and the left lateral inferior wall, likely secondary to occlusion by the prostate however, intrinsic abnormality is not excluded. No bladder calculi. PELVIC VISCERA: The prostate is heterogeneous, enlarged, protruding into the bladder. OSSEOUS STRUCTURES: Comminuted displaced fractures are present involving the posterolateral aspect of the left sixth, seventh and eighth ribs without any underlying detectable injury to the lung parenchyma or spleen. CT/CT abdomen pelvis w IV con IMPRESSION: 1. Comminuted displaced rib fractures at the posterolateral aspects of the left sixth through eighth ribs without evidence of any pneumothorax or splenic injury. Small volume simple appearing left-sided pleural effusion however is present. 2. No significant measurable soft tissue hematoma is identified within the left inferior posterior chest wall for within the left flank. 3. The prostate is heterogeneous and enlarged, protruding into the bladder. There is apparent subtle asymmetric soft tissue thickening seen within the bladder wall may represent changes secondary to prostatic or intrinsic bladder lesion. Clinical correlation as well as follow-up ultrasound of the bladder or direct visualization as appropriate may be considered for further clarification. 4. Incidental note is made of a subcentimeter angiomyolipoma involving the mid lateral cortex of the right kidney and presumed multifocal bilateral cortical renal cysts. No follow-up imaging is recommended.
--- NOTE | ~2023-06-10 | CT_ITS ---
EXAMINATION: CT HEAD WITHOUT CONTRAST CT CERVICAL SPINE WITHOUT CONTRAST CLINICAL INFORMATION: Reason for Exam fall COMPARISON: CT of the head done on 10/09/2022. TECHNIQUE: Imaging was performed from the skull base to vertex without intravenous administration of contrast. In addition, helical noncontrast CT imaging was acquired through the cervical spine and source images were reviewed along with axial reconstructions and sagittal and coronal MPRs. This CT examination was performed using dose optimization techniques as appropriate, variously including the following: *Automated exposure control. *Adjustment of mA and/or kV according to patient size (this includes techniques or standardized protocols for targeted exams where dose is matched to indication/reason for exam; i.e. extremities or head). *Use of iterative reconstruction technique. Total exam dose-length product 852.37 (head) and 498.42 (cervical spine) mGy-cm FINDINGS: HEAD: No intracranial mass, hemorrhage, or midline shift is visualized. The ventricles and sulci are unremarkable. Focal hypodensity at the site of right thalamic hemorrhage is consistent with focal encephalomalacia. Subtle hypodensity within the ipsilateral anterior part of the midbrain is also noted. No extra-axial collections are identified. The paranasal sinuses and mastoid air cells are well aerated. CERVICAL SPINE: Moderate diffuse osteopenia and multilevel degenerative spondylosis related changes are noted. There is no evidence of acute cervical spine fracture. Vertebral bodies remain normal in height, and alignment is anatomic. No prevertebral or paravertebral soft tissue abnormality is identified. Limited assessment of the lung apices is unremarkable for curvilinear focal calcification within the posterior part of the right lung apex. CT/CT cervical spine wo IV con IMPRESSION: 1. No acute intracranial pathology. Focal hypodensity corresponding to the site of previously documented right thalamic hemorrhage and subtle hypodensity within the ipsilateral anterior part of the right-sided mid brain are noted. 2. No CT evidence of acute cervical spine fracture or traumatic subluxation.
[2023-06-10 18:35] VITALS: BP 196/110; PULSE 70; O2SAT 99; BMI 27.6
[2023-06-10 18:39] VITALS: BP 177/95; PULSE 70; RESP 18; TEMP 36.7; O2SAT 96
--- NOTE | 2023-06-10 18:48 | ED.FALL ---
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 states patient was attempting to ambulate with walker when fell onto left side on table, unknown head trauma, denies LOC. reports headache and left side/back pain. Denies symptoms prior to fall including lightheadedness/dizziness, CP/SOB, hematuria. Denies abdominal pain, nausea/vomiting. At baseline ambulates with walker, with assistance MD complaint: fall Related Data Home Medications Medication Instructions Recorded Confirmed nystatin 100,000 unit/mL oral PO 12/27/22 02/12/23 suspension cyanocobalamin (vitamin B-12) 1,000 mcg PO DAILY 06/05/23 1,000 mcg tablet losartan 100 mg tablet (Cozaar) 100 mg PO DAILY 06/05/23 Previous Rx's Medication Instructions Recorded GAIT BELT #1 ea 12/13/22 walker #1 ea 12/21/22 arm trough for wheelchair #1 ea 12/26/22 wheelchair cushion #1 ea 12/26/22 cyanocobalamin (vitamin B-12) 1,000 mcg PO DAILY #90 caps 12/27/22 1,000 mcg capsule diclofenac sodium 1 % topical gel 4 g topical QID knee pain #100 12/27/22 grams docusate sodium 100 mg capsule 100 mg PO BID PRN constipation 12/27/22 #180 caps sennosides 17.2 mg tablet 17.2 mg PO BEDTIME #90 tabs 12/27/22 trazodone 50 mg tablet 50 mg PO BEDTIME PRN sleep #90 tabs 12/27/22 UNDER PADS disposable #300 ea 01/01/23 GLOVES #3 ea 01/01/23 WIPES #1 ea 01/01/23 adult briefs w/ tabs (Extra Large) #120 ea 01/01/23 commode w/ adjustment handle sides #1 ea 01/01/23 (for extra wide seat) Hospital bed trapeze #1 ea 01/09/23 Shower chair #1 ea 01/09/23 nystatin 100,000 unit/gram topical 1 appl topical TID #60 grams 01/09/23 powder baclofen 10 mg tablet 10 mg PO BID PRN muscle spasm 90 01/12/23 days #180 tabs transfer CHAIR #1 ea 01/17/23 amlodipine 10 mg tablet 10 mg PO DAILY #90 tabs 02/12/23 apixaban 5 mg tablet (Eliquis) 5 mg PO BID #180 tabs 02/12/23 atorvastatin 40 mg tablet 40 mg PO DAILY #90 tabs 02/12/23 cholecalciferol (vitamin D3) 125 125 mcg PO DAILY #90 caps 02/12/23 mcg (5,000 unit) capsule gabapentin 300 mg capsule 600 mg (2 x 300 mg) PO DAILY 90 02/12/23 days #180 caps Cozaar 25 mg tablet (losartan) 75 mg (3 x 25 mg) PO DAILY 90 days 02/23/23 #270 tabs carvedilol 12.5 mg tablet 12.5 mg PO BID #180 tabs 04/09/23 tramadol 50 mg tablet 50 mg PO Q6H PRN severe pain 06/10/23 (scale score 7-10) #14 tabs Allergies Allergy/AdvReac Type Severity Reaction Status Date / Time lisinopril Allergy Unknown Unknown Verified 06/10/23 18:35 Review of Systems Review of Systems: Constitutional: No Fever, No Chills, No Fatigue, No Malaise ENT/Mouth: No Ear Pain, No Nasal Congestion, No sore throat, No Rhinorrhea, No Swallowing Difficulty Eyes: No Eye Pain, No Swelling, No Redness, No Vision Changes Cardiovascular: + Chest Wall Pain, No SOB Respiratory: No Cough, No Sputum, No Dyspnea Gastrointestinal: No Nausea, No Vomiting, No Diarrhea, No Constipation, No Abdominal pain Genitourinary: No Dysuria, No Urinary Frequency, + Hematuria, No Urinary Incontinence/retention,+ Flank Pain Musculoskeletal: +back pain, No Myalgias, No Joint Swelling Skin: No Skin Lesions, No rash Neuro: No Weakness, No Loss of Consciousness, No Dizziness, + Headache Yes all other systems are reviewed and are negative Constitutional: Constitutional: Reports as per [facility] Past Medical History Attestation statement: The following information was validated with the patient. Source: old records reviewed Medical History DVT (deep venous thrombosis) Urinary incontinence Renal cyst, left GERD (gastroesophageal reflux disease) Aortic dilatation Vitamin D deficiency Obesity (BMI 30-39.9) Hypercholesterolemia Vitamin B12 deficiency Pulmonary nodule Elevated blood pressure reading Impaired glucose tolerance Surgical History History of inguinal hernia repair History of tonsillectomy Family History Family History Father Bone cancer Mother Acute CVA (cerebrovascular accident) Social History Housing: House Alcohol intake: never Patient Tobacco Use Status: Never used Tobacco Smoked in Last 30 Days: No e-Cigarette/Vaping Use: Never Used Second Hand Smoke Exposure: No Advance Directives: No Advance Directives Information Provided: No Current occupational status: employed Cognitive needs: No Hearing needs: No Vision needs: No Physical Exam Vital Signs: Vital Signs: Last Vital Signs Temp 98.0 F 06/10/23 18:39 Pulse 63 06/10/23 20:22 Resp 16 06/10/23 20:22 BP 149/72 H 06/10/23 20:22 Pulse Ox 98 06/10/23 20:22 O2 Del Method Room Air 06/10/23 20:22 BMI result Body Mass Index 27.6 Const: General: cooperative, healthy appearing and no acute distress Orientation/consciousness: patient oriented x3 Limitations: no limitations HEENT: Head: Yes normal to inspection and Yes atraumatic Ears: hearing grossly normal bilaterally General nose exam: Normal external nose present Face and sinus: Yes normal facial exam Throat: Yes posterior oropharynx normal and Yes uvula midline Eyes: General: appearance normal, both eyes and all related structures Pupils: Equal, round and reactive pupils present EOM: EOMs intact bilaterally Neck: Other: C-collar in place Neck: Yes normal visual inspection and Yes no meningeal signs Chest: Other: + hematoma/swelling noted to left lower posterior lateral chest wall with tenderness to palpation. No overlying erythema/warmth + left anterior lateral lower rib tenderness to palpation No flail chest Chest palpation & inspection: no crepitus and tenderness Resp: Effort & Inspection: normal respiratory effort and no respiratory distress Auscultation: clear to auscultation bilaterally Cardio: Rate: regular rate Heart sounds: S1 normal heart sound present and S2 normal heart sound present GI: Inspection: Yes normal to inspection Palpation (GI): Soft to palpation, nontender, no guarding and not rigid : General: Yes CVA tenderness (left) Back/Spine/Pelvis: Other: No midline cervical/thoracic/lumbar spinous tenderness/step-off or deformity Back: CVA tenderness (left) Skin: Rashes: no rashes Wounds: no wounds Neuro: Other: left sided residual deficits from prior CVA General: patient oriented x3, tone normal and no meningeal signs Cranial nerves: Yes Equal, round and reactive pupils present Extrem: General: Yes normal to inspection Course Course Course Narrative: -H&H 13.6/39 (lower than prior). Labs otherwise reassuring CT head/brain wo IV con/CT cervical spine wo IV con IMPRESSION: 1. No acute intracranial pathology. Focal hypodensity corresponding to the site of previously documented right thalamic hemorrhage and subtle hypodensity within the ipsilateral anterior part of the right-sided mid brain are noted. 2. No CT evidence of acute cervical spine fracture or traumatic subluxation. -2100--ED care transferred to MICHELLE Urias pending CT results and dispo per results Reevaluation(s) Reevaluation #1: Patient received in sign-out at change of shift pending CT scan of the abdomen chest for traumatic injuries. The patient has 3 rib fractures of the left posterior lateral 6th 7th and 8th ribs. No significant hemothorax, no pneumothorax. I discussed with the patient and family as well as into the findings of renal cyst and enlarged prostate that is heterogeneous. I provided them with a copy of the CT to bring to the PCP appointment. Patient we discharged with incentive spirometry and tramadol. Time: 22:08 Medications Administered Discontinued Medications Generic Name Dose Route Start Last Admin Trade Name Kay PRN Reason Stop Dose Admin Acetaminophen 650 mg 06/10/23 18:55 06/10/23 19:07 Acetaminophen 325 Mg Tablet PO 06/10/23 18:56 650 mg ONCE ONE Administration Carvedilol 12.5 mg 06/10/23 18:55 06/10/23 19:06 Carvedilol 12.5 Mg Tablet PO 06/10/23 18:56 12.5 mg ONCE ONE Administration Protocol Cyclobenzaprine HCl 5 mg 06/10/23 18:55 06/10/23 19:06 Cyclobenzaprine Hcl 5 Mg Tablet PO 06/10/23 18:56 5 mg ONCE ONE Administration Iohexol 100 ml 06/10/23 20:04 06/10/23 20:04 Iohexol 350 Mg/Ml 100 Ml Infus..Btl IV 06/10/23 20:05 100 ml ONCE ONE Administration Tramadol HCl 50 mg 06/10/23 22:10 06/10/23 22:29 Tramadol Hcl 50 Mg Tablet PO 06/10/23 22:11 50 mg ONCE ONE Administration Medical Decision Making Medical Decision Making MDM Narrative: 62-year-old male with a past medical history PE/DVT on Eliquis, GERD, HLD, vitamin B12 deficiency, HTN, CVA with left-sided residual deficits, presenting to the ED via EMS with s/p mechanical trip and fall at home 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 On exam vital signs stable, NAD, nontoxic appearing, C-collar in place, physical exam as noted above with hematoma/swelling to left posterior lateral chest wall/flank w/tenderness and left anterior lower rib tenderness to palpation. No midline spinous tenderness throughout. Abdomen soft-nontender. Concern for ICH vs fracture vs intrathoracic/intra-abdominal bleeding/injury. Low suspicion for ACS/PE or CVA Plan: Labs, UA, Head/C-spine, chest/abdomen/pelvis CT, pain control Please refer to course for remaining clinical decision making, interpretation of labs/imaging results, and discussions with consultants and/or family members. Differential Diagnosis Differential Diagnoses: The differential diagnosis associated with the presentation includes As above Admission/Observation Consideration of admission/observation: Escalation of care including admission/observation considered Lab Data [facility] Lab Attestation statement: I reviewed the patient's lab results. 06/10/23 19:12 06/10/23 19:12 Labs: Lab Results 06/10/23 06/10/23 Range/Units 19:12 20:24 WBC 7.4 (4.8-10.8) X10*3/uL RBC 4.39 L (4.60-5.80) X10*6/uL Hgb 13.6 L (14.0-18.0) g/dl Hct 39.0 L (42.0-52.0) % MCV 88.8 (80.0-98.0) fL MCH 31.0 (27.0-33.0) pg MCHC 34.9 (31.0-36.0) g/dl RDW 11.8 (11.0-16.0) % Plt Count 226 (160-400) X10*3/uL MPV 8.5 L (9.4-12.4) fL Immature Gran % (Auto) 0.7 H (0.0-0.4) % Neut % (Auto) 60.3 (45-73) % Lymph % (Auto) 28.8 (20-40) % [place] % (Auto) 7.8 (2-11) % Eos % (Auto) 1.9 (0-4) % Baso % (Auto) 0.5 (0-2) % Lymph # (Auto) 2.1 (1.2-4.9) X10*3/uL [place] # (Auto) 0.6 (0.1-1.2) X10*3/uL Eos # (Auto) 0.1 (0.0-0.4) X10*3/uL Baso # (Auto) 0.0 (0.0-0.2) X10*3/uL Abs Immat Gran (auto) 0.05 H (0.00-0.03) X10*3/uL Absolute Neuts (auto) 4.5 (2.0-8.3) x10*3/uL Absolute Nucleated RBC 0.000 (0.0-0.012) X10*3/uL Nucleated RBC % (auto) 0.0 (0.0-0.2) /100WBC PT 15.5 H (11.1-13.3) SEC INR 1.3 H (0.9-1.1) Sodium 142 (135-145) mmol/L Potassium 3.8 (3.3-5.1) mmol/L Chloride 107 (96-108) mmol/L Carbon Dioxide 28 (22-29) mmol/L Anion Gap 11 L (12-20) BUN 15 (9-16) mg/dL Creatinine 0.98 (0.5-1.4) mg/dL Estim Creat Clear Calc 88.5 Estimated GFR > 60 Random Glucose 108 (60-115) mg/dL Calcium 9.8 (8.4-10.2) mg/dL Total Bilirubin 0.6 (0.0-1.0) mg/dL Direct Bilirubin 0.2 (0.0-0.5) mg/dL AST 24 (5-37) U/L ALT 26 (0-40) U/L Alkaline Phosphatase 61 (39-117) U/L Total Protein 7.2 (6.5-8.0) g/dL Albumin 4.3 (3.5-5.0) g/dL Lipase 51 (8-78) U/L Urine Color Yellow Urine Appearance Clear Urine pH 6.5 (5.0-9.0) Ur Specific [place] 1.020 (1.005-1.025) Urine Protein Negative (Neg-Trace) mg/dL Urine Glucose (UA) Negative (Negative) mg/dL Urine Ketones Negative (Negative) mg/dL Urine Blood Negative (Negative) Urine Nitrite Negative (Negative) Ur Leukocyte Esterase Negative (Negative) Independent Interpretation I performed an independent interpretation of an: CT Scan Radiology Impression Discussion of test interpretation with radiology: I have reviewed the radiologist's reading. Independent Historian Clinical information obtained from an independent historian. History obtained from or confirmed by: Spouse and EMS External Record Review External record reviewed: Inpatient record, Office record, Outpatient record, Prior outpatient labs, Prior outpatient radiology, Primary care record and Outside ED record Tests considered The following testing was considered but not selected: As above Prescription Management I considered prescription management with: Pain Medication Chronic Conditions Patient?s care impacted by: Hypertension and Other (CVA) Critical Care Time Critical Care Time Critical Care Time: Yes Total Critical Care Time: 45 Attestation: I have personally provided critical care time exclusive of time spent on separately billable procedures. Time includes review of lab data, radiology results, discussion with consultants, and monitoring for potential decompensation. Intervention performed as documented. Discharge Plan Discharge Clinical Impression: Fall, Ribs, multiple fractures Patient Disposition: Home, Self-Care Instructions: Rib Fracture (ED) Additional Instructions: Take Tylenol as needed for pain. Use tramadol for more severe, breakthrough pain. Take all of your other medications as prescribed. As discussed, you have 3 rib fractures on the left. Incidentally, you have enlarged prostate and should follow-up with urology at the number provided. You should also follow-up regarding a renal cyst on your right side. Prescriptions: New tramadol 50 mg tablet 50 mg PO Q6H PRN (Reason: severe pain (scale score 7-10)) Qty: 14 0RF No Action (DME) GAIT BELT See Rx Instructions .Route .MEDSUPPLY Qty: 1 0RF Rx Instructions: As directed (DME) walker Misc See Rx Instructions .Route Qty: 1 0RF Rx Instructions: As directed front wheels with left side platform (DME) arm trough for wheelchair See Rx Instructions .Route .MEDSUPPLY Qty: 1 0RF Rx Instructions: As directed (DME) wheelchair cushion See Rx Instructions .Route .MEDSUPPLY Qty: 1 0RF Rx Instructions: As directed (DME) adult briefs w/ tabs (Extra Large) See Rx Instructions .Route .MEDSUPPLY Qty: 120 11RF Rx Instructions: As directed (DME) WIPES See Rx Instructions .Route .MEDSUPPLY Qty: 1 12RF Rx Instructions: As directed (DME) GLOVES See Rx Instructions .Route .MEDSUPPLY Qty: 3 11RF Rx Instructions: as needed (DME) commode w/ adjustment handle sides (for extra wide seat) See Rx Instructions .Route .MEDSUPPLY Qty: 1 0RF Rx Instructions: As directed (DME) UNDER PADS disposable See Rx Instructions .Route .MEDSUPPLY Qty: 300 11RF Rx Instructions: As directed (DME) Hospital bed trapeze See Rx Instructions .Route .MEDSUPPLY Qty: 1 0RF Rx Instructions: As directedshower chair w/ back and hospital bed trapeze (DME) Shower chair See Rx Instructions .Route .MEDSUPPLY Qty: 1 0RF Rx Instructions: shower chair w/ back and hospital bed trapeze nystatin 100,000 unit/gram powder 1 appl topical TID Qty: 60 0RF (DME) transfer CHAIR See Rx Instructions .Route .MEDSUPPLY Qty: 1 0RF Rx Instructions: regular chair will not fit through doors losartan [Cozaar] 25 mg tablet 75 mg PO DAILY 90 Days Qty: 270 3RF carvedilol 12.5 mg tablet 12.5 mg PO BID Qty: 180 3RF Rx Instructions: must administer with a meal/food, patient choice nystatin 100,000 unit/mL suspension PO cyanocobalamin (vitamin B-12) 1,000 mcg capsule 1,000 mcg PO DAILY Qty: 90 5RF diclofenac sodium 1 % gel 4 g topical QID Qty: 100 3RF docusate sodium 100 mg capsule 100 mg PO BID PRN (Reason: constipation) Qty: 180 2RF sennosides 17.2 mg tablet 17.2 mg PO BEDTIME Qty: 90 0RF trazodone 50 mg tablet 50 mg PO BEDTIME PRN (Reason: sleep) Qty: 90 0RF Eliquis 5 mg tablet 5 mg PO BID Qty: 180 3RF amlodipine 10 mg tablet 10 mg PO DAILY Qty: 90 3RF atorvastatin 40 mg tablet 40 mg PO DAILY Qty: 90 3RF cholecalciferol (vitamin D3) 125 mcg (5,000 unit) capsule 125 mcg PO DAILY Qty: 90 3RF gabapentin 300 mg capsule 600 mg PO DAILY 90 Days Qty: 180 1RF baclofen 10 mg tablet 10 mg PO BID PRN (Reason: muscle spasm) 90 Days Qty: 180 3RF losartan [Cozaar] 100 mg tablet 100 mg PO DAILY cyanocobalamin (vitamin B-12) 1,000 mcg tablet 1,000 mcg PO DAILY Referrals: Luis Carlos Beauchamp MD [Physician] - (Enlarged prostate, right renal cyst)
[2023-06-10] MEDS: Cyclobenzaprine HCl 5 MG TABLET PO (19:06)
[2023-06-10] MEDS: carvediloL 12.5 MG TABLET PO (19:06)
[2023-06-10] MEDS: Acetaminophen 325 MG TABLET 650 MG PO (19:07)
--- OUTSIDE RECORDS SUMMARY | 2023-06-10 19:10 | XMS_ITS | Continuity of Care Document ---
Author Name Unknown Organization [facility] Address [address] [place] [id number]- Care Team Providers Care Last Picker Name Role Phone Po Shruthi FRAZIER Primary Care Physician Encounter [facility] [place] Date(s): 02/03/23 - 06/03/23 [facility] [address] [place] [address]- Attending Physician: Dwayne Blakely MD Admitting Physician: Dwayne Blakely MD Referring Physician: Dwayne Blakely MD Allergies, Adverse Reactions, Alerts Substance Reaction [...] 02/08/23 9:44:00 EDT, Route to Pharmacy Electronically, [facility]/pharmacy #[id number], Partial fill upon patient request if the [...] Start Date: 02/01/23 Status: Ordered nystatin topical 357105 u/gm powder 0 Refills, Maintenance, 02/01/23 15:22:00 [...] Enroll in CVA rehab program [facility] NIHSS: 13 TPA: no IA: no Secondaryprevention: MCT BP as noted below Statin as noted below Follow up: 12/21 1300 stroke, [place] Mobility/ADL Dysfunction/Cognition: PT OT CLIENT LIAISON Dysphagia: CLIENT LIAISON Sleep: Monitoring Trazodone 50 mg qhs Behavior: Monitoring Neurostimulation: Monitoring Amantadine 100 mg daily dc'ed Mood: Monitoring Pain: Tylenol 650 mg q6h prn Gabapentin 300 mg qhs Diclofenac gel 4 times daily DVT Prophylaxis: Therapeutic anticoagulation Encourage mobility, monitor for signsand symptoms of DVT Bowel/FEN/GI: Timed voiding Titrate to home regimen, change q1-2 days Adult/Pediatric nutrition supplements Supplement: Ensure Plus High Protein [place]; Number of servings: One; Frequency: Breakfast, Dinner Therapeutic trial tray per CLIENT LIAISON Therapeutic trial tray per CLIENT LIAISON Diet Dysphagia; Minced and moist (IDDSI 5); [...] Reference Physician Member Role: PCP Address: Address: [address] [place] [id number]- Care Team Related Persons Name: REMIGIO TAPIA Address: home [address] [place] [address]
--- OUTSIDE RECORDS SUMMARY | 2023-06-10 19:10 | XMS_ITS | Continuity of Care Document ---
Author Name Unknown Organization [facility] Address [address] [place] [id number]- Care Team Providers Care Manager Front Name Role Phone Po Shruthi FRAZIER Primary Care Physician [phone] Encounter [facility] [place] Date(s): 03/14/23 - 04/13/23 [facility] [address] [place] [id number]- Allergies, Adverse Reactions, Alerts Substance Reaction Severity [...] 02/08/23 9:44:00 EDT, Route to Pharmacy Electronically, [facility]/pharmacy #[id number], Partial fill upon patient request if the [...] Start Date: 02/01/23 Status: Ordered nystatin topical [id number] u/gm powder 0 Refills, Maintenance, 02/01/23 15:22:00 [...] Plan: Enroll in CVA rehab program R 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 Sleep: Monitoring Trazodone 50 mg qhs Behavior: Monitoring Neurostimulation: Monitoring Amantadine 100 mg daily dc'ed Mood: Monitoring Pain: Tylenol 650 mg q6h prn Gabapentin 300 mg qhs Diclofenac gel 4 times daily DVT Prophylaxis: Therapeutic anticoagulation Encourage mobility, monitor for signsand symptoms of DVT Bowel/FEN/GI: Timed voiding Titrate to home regimen, change q1-2 days Adult/Pediatric nutrition supplements Supplement: Ensure Plus High Protein [place]; Number of servings: One; Frequency: Breakfast, Dinner Therapeutic trial tray per FELLING MACHINE OPERATOR Therapeutic trial tray per FELLING MACHINE OPERATOR Diet Dysphagia; Minced and moist (IDDSI 5); [...] Reference Physician Member Role: PCP Address: Address: [address] [place] [id number]- Care Team Related Persons Name: LARISAKESHA REMIGIO Address: home [address] [place] [id number]
--- OUTSIDE RECORDS SUMMARY | 2023-06-10 19:10 | XMS_ITS | Continuity of Care Document ---
Author Name Unknown Organization [facility] Address [address], [address] [place] [id number]- Care Team Providers Care Felt Strip Finisher Name Role Phone Po Shruthi FRAZIER Primary Care Physician [place] [facility] Date(s): 04/25/23 - 05/25/23 [facility] [address], [address], [address] [place] [id number]- Allergies, Adverse Reactions, Alerts Substance Reaction Severity [...] 02/08/23 9:44:00 EDT, Route to Pharmacy Electronically, [facility]/pharmacy #[id number], Partial fill upon patient request if the [...] Start Date: 02/01/23 Status: Ordered nystatin topical [id number] u/gm powder 0 Refills, Maintenance, 02/01/23 15:22:00 [...] Plan: Enroll in CVA rehab program R [facility] NIHSS: 13 TPA: no IA: no Secondaryprevention: MCT BP as noted below Statin as noted below Follow up: 12/21 1300 stroke, [place] Mobility/ADL Dysfunction/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 Sleep: Monitoring Trazodone 50 mg qhs Behavior: Monitoring Neurostimulation: Monitoring Amantadine 100 mg daily dc'ed Mood: Monitoring Pain: Tylenol 650 mg q6h prn Gabapentin 300 mg qhs Diclofenac gel 4 times daily DVT Prophylaxis: Therapeutic anticoagulation Encourage mobility, monitor for signsand symptoms of DVT Bowel/FEN/GI: Timed voiding Titrate to home regimen, change q1-2 days Adult/Pediatric nutrition supplements Supplement: Ensure Plus High Protein [place]; Number of servings: One; Frequency: Breakfast, Dinner Therapeutic trial tray per PLANT SCIENCE PROFESSOR Therapeutic trial tray per PLANT SCIENCE PROFESSOR Diet Dysphagia; Minced and moist (IDDSI 5); [...] Reference Physician Member Role: PCP Address: Address: [address] [place] [phone]- Care Team Related Persons Name: REMIGIO TAPIA Address: home [address] [place] [address]
--- NOTE | 2023-06-10 19:15 | PC.NURSE ---
20gIV placed in the right Ac w/o difficulty - labs drawn and sent to lab at this time. medicated per provider order. bedside. respirations remain even and unlabored. c-collar remains in place. pt awaiting to go to CT at this time. call avery placed within reach.
[2023-06-10 19:17] LABS: MANUAL DIFF FLAG NO
[2023-06-10 19:18] LABS: Basophils Percent Auto 0.5 % (0-2); Eosinophils Absolute Auto 0.1 X10*3/uL (0.0-0.4); Eosinophils Percent Auto 1.9 % (0-4); Hemoglobin 13.6 g/dl (14.0-18.0); Imm Gran Abs Auto 0.05 X10*3/uL (0.00-0.03); Imm Gran Pct Auto 0.7 % (0.0-0.4); Lymphocytes Absolute Auto 2.1 X10*3/uL (1.2-4.9); Lymphocytes Percent Auto 28.8 % (20-40); Mean Corpuscular HGB Conc 34.9 g/dl (31.0-36.0); Mean Corpuscular Volume 88.8 fL (80.0-98.0); Mean Platelet Volume 8.5 fL (9.4-12.4); Monocytes Absolute Auto 0.6 X10*3/uL (0.1-1.2); Monocytes Percent Auto 7.8 % (2-11); Neutrophils Absolute Auto 4.5 x10*3/uL (2.0-8.3); Neutrophils Percent Auto 60.3 % (45-73); Platelet Count 226 X10*3/uL (160-400); Red Blood Count 4.39 X10*6/uL (4.60-5.80); Red Cell Distribution Width 11.8 % (11.0-16.0); White Blood Count 7.4 X10*3/uL (4.8-10.8)
--- NOTE | 2023-06-10 19:22 | PC.NURSE ---
pt to CT at this time.
[2023-06-10 19:23] LABS: INTERNATIONAL NORM RATIO 1.3 (0.9-1.1); Prothrombin Time 15.5 SEC (11.1-13.3)
[2023-06-10 19:32] LABS: Alanine Aminotransferase 26 U/L (0-40); Albumin Level 4.3 g/dL (3.5-5.0); Alkaline Phosphatase 61 U/L (39-117); Anion Gap 11 (12-20); Aspartate Amino Transferase 24 U/L (5-37); Bilirubin Direct 0.2 mg/dL (0.0-0.5); Bilirubin Total 0.6 mg/dL (0.0-1.0); Blood Urea Nitrogen 15 mg/dL (9-16); Calcium 9.8 mg/dL (8.4-10.2); Carbon Dioxide 28 mmol/L (22-29); Chloride 107 mmol/L (96-108); Creatinine Clr Calc Pharmacy 88.5; Estimated Glomerular Filt Rate > 60; Glucose Random 108 mg/dL (60-115); Lipase 51 U/L (8-78); Potassium 3.8 mmol/L (3.3-5.1); Sodium 142 mmol/L (135-145); Total Protein 7.2 g/dL (6.5-8.0)
[2023-06-10] MEDS: iohexoL 350 MG/ML 100 ML INFUS..BTL IV (20:04)
[2023-06-10 20:22] VITALS: BP 149/72; PULSE 63; RESP 16; O2SAT 98
--- NOTE | 2023-06-10 20:22 | PC.NURSE ---
vss and up to date at this time. BP decreasing post medication administration. urine obtained and sent to lab. pt awaiting on CT results. c-collar remains in place.
[2023-06-10 20:30] LABS: Appearance Urine Clear; Color Urine Yellow; Glucose Urine UA Negative (Negative); Leukocyte Esterase Urine Negative (Negative); Nitrite Urine Negative (Negative); PH 6.5 (5.0-9.0); Urine Blood Negative (Negative); Urine Ketones Negative (Negative); Urine Protein Negative (Neg-Trace)
[2023-06-10] MEDS: traMADoL HCL 50 MG TABLET PO (22:29)
--- NOTE | 2023-06-10 23:00 | PC.NURSE ---
and son at at bedside educated on how to use incentive spirometer and when to use tramadol. awaiting EMS for transport home.
== END 2023-06-10 23:07 | disposition home or self-care (01) ==
PROVIDERS: Physician Assistant; Emergency Provider Internal Medicine; PCP Internal Medicine
DX: S22.42XA Multiple fractures of ribs, left side, initial encounter for closed fracture (principal); R51.9 Headache, unspecified; M54.50 Low back pain, unspecified; R07.89 Other chest pain; M54.6 Pain in thoracic spine; W01.0XXA Fall on same level from slipping, tripping and stumbling without subsequent striking against object, initial encounter; Y93.9 Activity, unspecified; Y92.9 Unspecified place or not applicable; Y99.9 Unspecified external cause status; Z86.718 Personal history of other venous thrombosis and embolism; Z79.01 Long term (current) use of anticoagulants; Z79.899 Other long term (current) drug therapy
CPT/HCPCS: 36415; 70450; 71260; 72125; 74177; 80048; 80076; 81003; 83690; 85025; 85610; 99284; Q9967

== ENCOUNTER 2023-06-12 14:48 | Outpatient (AMB) | payer OTHER, SELFPAY ==
--- NOTE | 2023-06-12 14:48 | MHC.PC.OV ---
Vital Signs 06/12/23 14:49 Height 6 ft 2 in BMI Reason not done Patient refused/unable Blood Pressure Location Rt brachial Position Sitting Intake Visit Reasons: CVA left-sided weakness Surfacing Technician Required: No Accompanied by: Spouse Allergies lisinopril Allergy (Unknown, Verified 06/12/23 14:51) Unknown Medication List - Last Reconciled 06/12/23 by Shruthi Carrera MD [UNDER PADS disposable As directed] [adult briefs w/ tabs (Extra Large) As directed] amlodipine 10 mg PO DAILY apixaban (Eliquis) 5 mg PO BID [arm trough for wheelchair As directed] atorvastatin 40 mg PO DAILY baclofen 10 mg PO BID PRN 90 days carvedilol 12.5 mg PO BID cholecalciferol (vitamin D3) 125 mcg PO DAILY clotrimazole 1% 1 appl topical BID 4 weeks [commode w/ adjustment handle sides (for extra wide seat) As directed] Cozaar (losartan) 75 mg (3 x 25 mg) PO DAILY 90 days NS cyanocobalamin (vitamin B-12) 1,000 mcg PO DAILY cyanocobalamin (vitamin B-12) 1,000 mcg PO DAILY diclofenac sodium 1% 4 grams topical QID docusate sodium 100 mg PO BID PRN gabapentin 600 mg (2 x 300 mg) PO DAILY 90 days [GAIT BELT As directed] [GLOVES as needed] [Hospital bed trapeze As directedshower chair w/ back and hospital bed trapeze] losartan (Cozaar) 100 mg PO DAILY nystatin 1 appl topical TID nystatin PO sennosides 17.2 mg PO BEDTIME [Shower chair shower chair w/ back and hospital bed trapeze] tramadol 50 mg PO Q6H PRN [transfer CHAIR regular chair will not fit through doors] trazodone 50 mg PO BEDTIME PRN walker As directed front wheels with left side platform [wheelchair cushion As directed] [WIPES As directed] zinc oxide 25% 1 appl topical BID-QID PRN Tobacco use date assessed: 02/12/23 Dental Screening Dental Screen Date: 06/12/23 Did you have a dental visit in the last 12 months?: Yes Did you have a dental problem in the last 6 months where you did not have access to dental care?: No Was dental information given to patient?: Patient has dentist HPI CVA left-sided weakness HPI Details 62-year-old male with a history of CVA, cerebral aneurysm pulmonary embolism left leg DVT hypercholesterolemia hypertension last spoken with in February 2023. Patient comes in for follow-up through Telehealth. 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 Patient was prescribed incentive spirometer and tramadol. Patient also followed up with Pulmonary 06/05/2023 with pulmonary embolism left extremity DVT placed on Eliquis. Pulmonary has requested hypercoagulable workup, echocardiogram and a repeat CTA, PFTs and advised hematology oncology referral [facility] [place] Medical History (Updated 06/12/23 @ 15:22 by Shruthi Carrera MD) DVT (deep venous thrombosis) Hypertension Urinary incontinence Renal cyst, left GERD (gastroesophageal reflux disease) Aortic dilatation Vitamin D deficiency Obesity (BMI 30-39.9) Hypercholesterolemia Vitamin B12 deficiency Pulmonary nodule Elevated blood pressure reading Impaired glucose tolerance Surgical History History of inguinal hernia repair History of tonsillectomy Family History Father Bone cancer Mother Acute CVA (cerebrovascular accident) Social History Housing: House Alcohol intake: never Patient Tobacco Use Status: Never used Tobacco e-Cigarette/Vaping Use: Never Used Second Hand Smoke Exposure: No Current occupational status: employed Cognitive needs: No Hearing needs: No Vision needs: No Questionnaire Thrive Questionnaire Date Thrive assessed: 12/27/22 BRISEIDA-7 AMB Questionnaire BRISEIDA-7 Date BRISEIDA - 7 assessed: 12/27/22 Source: Developed by Drs. Sanchez Rivera, Britt Burr, Mike Aponte and colleagues, with an educational tremayne from [employer]. Physical exam (Primary Care) Tobacco/Smoking Status: Tobacco use Status Tobacco use date assessed 02/12/23 06/12/23 14:53 Patient Tobacco Use Status Never used Tobacco 06/12/23 14:53 e-Cigarette/Vaping Use Never Used 06/12/23 14:53 Thrive Assessment: Date of Thrive Assessment Date Thrive assessed 12/27/22 06/12/23 14:53 Telehealth Telehealth Location of patient: address on file Patient Identification confirmed using: Name, : Yes Telehealth method: voice only Patient verbally consented to treatment: Yes Patient verbally consented to billing insurance company: Yes Patient informed of any privacy concerns related to visit: Yes Minutes spent on Phone/Video with Pt.: 25 Assessment and Plan Assessment & Plan (1) CVA (cerebral vascular accident): Code(s): I63.9 - Cerebral infarction, unspecified Qualifiers: CVA mechanism: unspecified Qualified Code(s): I63.9 - Cerebral infarction, unspecified Plan: Control the cholesterol, weight, blood pressure, (2) Left leg DVT: Comment: persistent extensive DVT LLE Code(s): I82.402 - Acute embolism and thrombosis of unspecified deep veins of left lower extremity Qualifiers: Affected thrombotic vein of extremity: femoral Chronicity: chronic Qualified Code(s): I82.512 - Chronic embolism and thrombosis of left femoral vein Plan: Patient continues to be on anticoagulation with Eliquis. Pulmonary is recommended referral to Hematology Oncology, hypercoagulable workup started (3) Pulmonary embolism: Comment: October 2022 Code(s): I26.99 - Other pulmonary embolism without acute cor pulmonale Qualifiers: Acute cor pulmonale presence: without acute cor pulmonale Chronicity: chronic Pulmonary embolism type: unspecified Qualified Code(s): I27.82 - Chronic pulmonary embolism Plan: Presently on anticoagulation pulmonary workup doing CTA (4) Hypercholesterolemia: Code(s): E78.00 - Pure hypercholesterolemia, unspecified Plan: Avoid fried foods, chicken skin, eggs, butter margarine, pastries and meat. Be it pork or beef they have a lot of cholesterol LDL goal of less than 70 and triglyceride of less than 150 patient on atorvastatin 40 mg once a day (5) Hypertension: Code(s): I10 - Essential (primary) hypertension Plan: Continue with blood pressure medication. Decrease salt intake and exercise patient on amlodipine 10 mg once a day carvedilol 12.5 mg twice a day Cozaar 75 mg once a day (6) Left rib fracture: Comment: Left posterolateral 12 20 and 23 May 2023 fall Code(s): S22.32XA - Fracture of one rib, left side, initial encounter for closed fracture Plan: Incentive spirometry requested. Patient has been given tramadol for pain. Added lidocaine ointment (7) BPH (benign prostatic hyperplasia): Code(s): N40.0 - Benign prostatic hyperplasia without lower urinary tract symptoms Plan: Will continue to monitor. Patient has no symptom (8) Tinea cruris: Code(s): B35.6 - Tinea cruris Plan: Clotrimazole cream sent in Orders: Referrals Hematology & Oncology Referral I82.512 - Chronic embolism and thrombosis of left femoral vein Medications: New zinc oxide 25% 1 appl topical BID-QID PRN 500 grams 0RF skin irritation N40.0 - Benign prostatic hyperplasia without lower urinary tract symptoms clotrimazole 1% 1 appl topical BID 45 grams 0RF 4 weeks N40.0 - Benign prostatic hyperplasia without lower urinary tract symptoms lidocaine 5% 1 appl topical TID PRN 50 grams 0RF pain S22.32XA - Fracture of one rib, left side, initial encounter for closed fracture Refilled [WIPES] As directed 7 ea 12RF I63.9 - Cerebral infarction, unspecified, R15.9 - Full incontinence of feces, R32 - Unspecified urinary incontinence Coding Level of Care Code Tele Est Pt Level 4 (13838) Diagnoses Cerebrovascular accident (CVA), unspecified mechanism I63.9 CVA mechanism: unspecified Chronic deep vein thrombosis (DVT) of femoral vein of left lower extremity I82.512 Affected thrombotic vein of extremity: femoral Chronicity: chronic Chronic pulmonary embolism without acute cor pulmonale, unspecified pulmonary embolism type I27.82 Acute cor pulmonale presence: without acute cor pulmonale Chronicity: chronic Pulmonary embolism type: unspecified Hypercholesterolemia E78.00 Hypertension I10 Left rib fracture S22.32XA BPH (benign prostatic hyperplasia) N40.0 Tinea cruris B35.6
== END 2023-06-12 15:36 | disposition home or self-care (01) ==
LOC: HO.HMGH 14:48
PROVIDERS: PCP Internal Medicine; Visit Provider Internal Medicine
DX: I82.512 Chronic embolism and thrombosis of left femoral vein (principal); I27.82 Chronic pulmonary embolism; E78.00 Pure hypercholesterolemia, unspecified; S22.32XA Fracture of one rib, left side, initial encounter for closed fracture; Z86.73 Personal history of transient ischemic attack (TIA), and cerebral infarction without residual deficits; I10 Essential (primary) hypertension; N40.0 Benign prostatic hyperplasia without lower urinary tract symptoms; B35.6 Tinea cruris
CPT/HCPCS: 99214

== ENCOUNTER → 2023-06-18 14:52 | Outpatient (BNV) | payer MEDICARE, OTHER, MEDICAID, SELFPAY | PROVIDERS: PCP Internal Medicine; Visit Provider Internal Medicine Medical Oncology | DX: I82.402 Acute embolism and thrombosis of unspecified deep veins of left lower extremity (principal) | CPT/HCPCS: 99204; 99213 ==

== ENCOUNTER 2023-06-30 07:46 | Outpatient (REF) | payer OTHER, SELFPAY ==
[2023-06-30 08:51] LABS: MANUAL DIFF FLAG NO
[2023-06-30 10:19] LABS: Basophils Absolute Auto 0.1 X10*3/uL (0.0-0.2); Basophils Percent Auto 1.1 % (0-2); Eosinophils Absolute Auto 0.1 X10*3/uL (0.0-0.4); Eosinophils Percent Auto 3.1 % (0-4); Hematocrit 36.7 % (42.0-52.0); Hemoglobin 12.7 g/dl (14.0-18.0); Imm Gran Abs Auto 0.02 X10*3/uL (0.00-0.03); Imm Gran Pct Auto 0.4 % (0.0-0.4); Lymphocytes Absolute Auto 1.7 X10*3/uL (1.2-4.9); Lymphocytes Percent Auto 36.6 % (20-40); Mean Corpuscular HGB Conc 34.6 g/dl (31.0-36.0); Mean Corpuscular Hemoglobin 31.4 pg (27.0-33.0); Mean Corpuscular Volume 90.6 fL (80.0-98.0); Mean Platelet Volume 9.1 fL (9.4-12.4); Monocytes Absolute Auto 0.4 X10*3/uL (0.1-1.2); Monocytes Percent Auto 8.6 % (2-11); Neutrophils Absolute Auto 2.3 x10*3/uL (2.0-8.3); Neutrophils Percent Auto 50.2 % (45-73); Platelet Count 215 X10*3/uL (160-400); Red Blood Count 4.05 X10*6/uL (4.60-5.80); Red Cell Distribution Width 12.6 % (11.0-16.0); White Blood Count 4.5 X10*3/uL (4.8-10.8)
[2023-06-30 10:22] LABS: Basophils Absolute Auto 0.1 X10*3/uL (0.0-0.2); Basophils Percent Auto 1.2 % (0-2); Eosinophils Absolute Auto 0.1 X10*3/uL (0.0-0.4); Eosinophils Percent Auto 2.4 % (0-4); Hematocrit 37.2 % (42.0-52.0); Hemoglobin 12.9 g/dl (14.0-18.0); Imm Gran Abs Auto 0.02 X10*3/uL (0.00-0.03); Imm Gran Pct Auto 0.5 % (0.0-0.4); Immature Retic Fraction 12.2 % (2.3-13.4); Lymphocytes Absolute Auto 1.5 X10*3/uL (1.2-4.9); Lymphocytes Percent Auto 34.4 % (20-40); Mean Corpuscular HGB Conc 34.7 g/dl (31.0-36.0); Mean Corpuscular Hemoglobin 31.1 pg (27.0-33.0); Mean Corpuscular Volume 89.6 fL (80.0-98.0); Mean Platelet Volume 8.9 fL (9.4-12.4); Monocytes Absolute Auto 0.4 X10*3/uL (0.1-1.2); Monocytes Percent Auto 8.2 % (2-11); Neutrophils Absolute Auto 2.3 x10*3/uL (2.0-8.3); Neutrophils Percent Auto 53.3 % (45-73); Platelet Count 198 X10*3/uL (160-400); Red Blood Count 4.15 X10*6/uL (4.60-5.80); Red Cell Distribution Width 12.6 % (11.0-16.0); Retic HGB Equivalent 35.6 pg (30.0-35.0); Reticulocyte Percent 1.8 % (0.5-1.8); Reticulocytes Absolute 0.074 X10*6/uL (0.026-0.095); White Blood Count 4.3 X10*3/uL (4.8-10.8)
[2023-06-30 10:42] LABS: Alanine Aminotransferase 12 U/L (0-40); Albumin Level 4.1 g/dL (3.5-5.0); Alkaline Phosphatase 110 U/L (39-117); Anion Gap 11 (12-20); Aspartate Amino Transferase 15 U/L (5-37); Bilirubin Total 0.8 mg/dL (0.0-1.0); Blood Urea Nitrogen 20 mg/dL (9-16); Calcium 9.6 mg/dL (8.4-10.2); Carbon Dioxide 27 mmol/L (22-29); Chloride 109 mmol/L (96-108); D Dimer High Sensitivity 363 NG/ML; Estimated Glomerular Filt Rate > 60; Glucose Random 104 mg/dL (60-115); Potassium 3.6 mmol/L (3.3-5.1); Sodium 143 mmol/L (135-145); Total Protein 6.6 g/dL (6.5-8.0)
[2023-06-30 10:45] LABS: Estimated Average Glucose 103 mg/dL; Hemoglobin A1c % 5.2 % (<6.0)
[2023-06-30 10:52] LABS: Alanine Aminotransferase 13 U/L (0-40); Albumin Level 4.1 g/dL (3.5-5.0); Alkaline Phosphatase 112 U/L (39-117); Anion Gap 12 (12-20); Aspartate Amino Transferase 15 U/L (5-37); Bilirubin Total 0.8 mg/dL (0.0-1.0); Blood Urea Nitrogen 19 mg/dL (9-16); Calcium 9.5 mg/dL (8.4-10.2); Carbon Dioxide 26 mmol/L (22-29); Chloride 109 mmol/L (96-108); Cholesterol 94 mg/dL (<200); Estimated Glomerular Filt Rate > 60; Glucose Random 103 mg/dL (60-115); HDL Cholesterol 29 mg/dL (>40); Iron 88 mcg/dL (45-160); LDL Cholesterol Calculated 50 mg/dL (<100); Percent Iron Saturation 40 % (15-50); Potassium 3.6 mmol/L (3.3-5.1); Sodium 143 mmol/L (135-145); Total Iron Binding Capacity 221 mcg/dL (228-428); Total Protein 6.7 g/dL (6.5-8.0); Triglycerides 79 mg/dL (<150); Unsaturated Iron Binding 133 ug/dL
[2023-06-30 10:56] LABS: Ferritin 451 ng/mL (20-250); Ferritin 479 ng/mL (20-250); Free T4 (Free Thyroxine) 1.12 ng/dL (0.71-1.85); Thyroid Stimulating Hormone 0.74 uIU/mL (0.32-4.0)
[2023-06-30 11:11] LABS: Folate 6.6 ng/mL (> or = 4.0); Vitamin B12 776 pg/mL (200-900)
[2023-06-30 11:15] LABS: Folate 6.9 ng/mL (> or = 4.0); Prostate Specific Antigen Scr 0.91 ng/mL (<0.05-4.0); Vitamin B12 756 pg/mL (200-900)
[2023-07-03 23:08] LABS: Protein C Activity 132 % normal (70-180)
[2023-07-03 23:12] LABS: Anti-Thrombin III Activity 106 % normal (80-135); Protein S Activity rflx Tot&Fr 74 % normal (70-150)
[2023-07-05 06:23] LABS: DRVVT Confirmation Negative (Negative); PTT (LAC) Screen 38 sec (<=40)
[2023-07-07 01:59] LABS: Factor V Leiden NEGATIVE
[2023-07-07 02:25] LABS: Prothrombin 20210A NEGATIVE
== END 2023-06-30 07:47 | disposition home or self-care (01) ==
LOC: HO.LAB 07:46
PROVIDERS: Absent Provider Internal Medicine Medical Oncology; PCP Internal Medicine; Visit Provider Hospitalist
DX: I26.99 Other pulmonary embolism without acute cor pulmonale (principal); I82.402 Acute embolism and thrombosis of unspecified deep veins of left lower extremity; R73.02 Impaired glucose tolerance (oral); I10 Essential (primary) hypertension; D64.9 Anemia, unspecified; E78.00 Pure hypercholesterolemia, unspecified
CPT/HCPCS: 36415; 80053; 80061; 81240; 81241; 82607; 82728; 82746; 83036; 83540; 84153; 84439; 84443; 85025; 85045; 85300; 85302; 85303; 85306; 85379; 85597; 85598; 85613; 85730

== ENCOUNTER 2023-07-17 14:42 | Outpatient (REF) | payer OTHER, SELFPAY ==
--- NOTE | ~2023-07-17 | CT_ITS ---
EXAMINATION: CT ANGIOGRAM OF THE CHEST WITH AND WITHOUT CONTRAST (CT PULMONARY ANGIOGRAM FOR PE) CLINICAL INFORMATION: Reason for Exam I26.99 - Other pulmonary embolism without acute cor pulmonale COMPARISON: None available. TECHNIQUE: Prior to contrast administration, noncontrast localization images were obtained. Subsequently, multidetector volumetric imaging was performed from the thoracic inlet to below the diaphragms following the administration of 65 mL Omnipaque 350 intravenous contrast. No contrast reaction reported Sagittal, coronal, and MIP oblique sagittal reformatted images were obtained on the CT workstation, uploaded to PACS, and reviewed. This CT examination was performed using dose optimization techniques as appropriate, variously including the following: *Automated exposure control *Adjustment of mA and/or kV according to patient size (this includes techniques or standardized protocols for targeted exams where dose is matched to indication/reason for exam; i.e. extremities or head) *Use of iterative reconstruction technique Total exam dose-length product 189 mGy-cm FINDINGS: QUALITY OF STUDY/CONTRAST BOLUS: Satisfactory. PULMONARY ARTERIES: No pulmonary emboli. THORACIC AORTA: No aneurysm. LUNG: No focal consolidation, nodules or masses. There is nonspecific groundglass attenuation seen in both upper and lower lobes, nonspecific. PLEURA: No pleural effusion or pneumothorax. MEDIASTINUM: The heart size there is enlarged. The great vessels are normal caliber. Central trachea and the bronchi widely patent. The thyroid lobes are symmetrical and normal. No abnormal size mediastinal or hilar lymph nodes seen. No evidence of septal bowing or right heart strain. CORONARY ARTERY CALCIFICATION: There is mild coronary artery calcifications present. CHEST WALL/AXILLA: No axillary or internal mammary lymphadenopathy. OSSEOUS STRUCTURES: There are multiple healing left fifth, sixth, seventh and eighth rib fractures. No acute fractures seen. There is no compression fracture or lytic process of thoracic spine. UPPER ABDOMEN: Visualized liver, spleen, pancreas and adrenal glands are unremarkable. No reflux of contrast into the hepatic veins to suggest elevated right heart pressures. CT/CT angio chest PE protocol IMPRESSION: 1. No evidence of PE. 2. No evidence of aortic aneurysm. 3. Mild cardiomegaly. VTE: negative.
[2023-07-17] MEDS: iohexoL 350 MG/ML 75 ML INFUS..BTL 65 ML IV (15:24)
== END 2023-07-17 14:43 | disposition home or self-care (01) ==
LOC: HO.CT 14:42
PROVIDERS: PCP Internal Medicine; Visit Provider Hospitalist
DX: Z86.711 Personal history of pulmonary embolism (principal)
CPT/HCPCS: 71275; Q9967

== ENCOUNTER 2023-08-03 13:39 | Outpatient (AMB) | payer OTHER, SELFPAY ==
--- NOTE | 2023-08-03 13:56 | A.OFFVIS_ITS ---
Intake Intake Visit Reasons: enlarged prostate new Intake Note: Patient is Present for Follow Up CT Scan Urology Medication: None Antibiotic Allergies: None Blood Thinners:Eliquis Patient is concerned about CT Scan that was done. Allergies lisinopril Allergy (Unknown, Verified 08/03/23 13:57) Unknown Medication List - Last Reconciled 08/03/23 by Luis Carlos Beauchamp MD [UNDER PADS disposable As directed] [adult briefs w/ tabs (Extra Large) As directed] amlodipine 10 mg PO DAILY apixaban (Eliquis) 5 mg PO BID [arm trough for wheelchair As directed] atorvastatin 40 mg PO DAILY baclofen 10 mg PO BID PRN 90 days carvedilol 12.5 mg PO BID cholecalciferol (vitamin D3) 125 mcg PO DAILY [commode w/ adjustment handle sides (for extra wide seat) As directed] cyanocobalamin (vitamin B-12) 1,000 mcg sublingual DAILY diclofenac sodium 1% 4 grams topical QID docusate sodium 100 mg PO BID PRN finasteride 5 mg PO DAILY 90 days gabapentin 600 mg (2 x 300 mg) PO DAILY 90 days [GAIT BELT As directed] [GLOVES as needed] [Hospital bed trapeze As directedshower chair w/ back and hospital bed trapeze] losartan (Cozaar) 100 mg PO DAILY [Shower chair shower chair w/ back and hospital bed trapeze] [transfer CHAIR regular chair will not fit through doors] walker As directed front wheels with left side platform [wheelchair cushion As directed] [WIPES As directed] zinc oxide 25% 1 appl topical BID-QID PRN HPI HPI Comments History of Present Illness Details Donell is a pleasant male. He is a patient of Dr. Carrera. He is seen for the following urologic conditions - nephrolithiasis - angiomyolipoma - erectile dysfunction PSA 09/[address] scan with enlarged prostate, confirms small angiomyolipoma right side Accompanied by his Stroke 10 months ago with movement deficit on left side Minimal issues with urination Would start finasteride given other issues Erectile dysfunction Progressive - Able to obtain erection Erection not of adequate rigidity - Unable to maintain Does have associated urinary urge Failed trial daily Cialis secondary to headache Nephrolithiasis Longstanding Minimal symptoms Imaging - 08/06 renal ultrasound - bilateral silvia l cysts up to 3 cm, right-sided angiomyolipoma 1.5 cm, bilateral small renal stones 5 mm [facility] Medical History DVT (deep venous thrombosis) Hypertension Urinary incontinence Renal cyst, left GERD (gastroesophageal reflux disease) Aortic dilatation Vitamin D deficiency Obesity (BMI 30-39.9) Hypercholesterolemia Vitamin B12 deficiency Pulmonary nodule Elevated blood pressure reading Impaired glucose tolerance Surgical History History of inguinal hernia repair History of tonsillectomy Family History Father Bone cancer Mother Acute CVA (cerebrovascular accident) Social History Housing: House Alcohol intake: never Patient Tobacco Use Status: Never used Tobacco e-Cigarette/Vaping Use: Never Used Second Hand Smoke Exposure: No service: Yes Current occupational status: employed and disabled Cognitive needs: No Hearing needs: No Vision needs: No Review of Systems Const Denies chills and Denies fever(s) Card Reports no additional complaints and Denies syncope Resp Denies cough GI Denies abdominal pain and Denies heartburn Reports as per HPI and Denies change in libido Neuro Denies syncope Psych Denies change in libido Endo Denies change in libido Physical Exam Const General: cooperative, healthy appearing, comfortable and no acute distress Orientation/consciousness: patient oriented x3 HEENT Face and sinus: Yes normal facial exam Mouth: moist mucous membranes Neck Neck: Yes normal visual inspection, Yes full ROM and Yes trachea midline Chest Chest palpation & inspection: normal inspection of the chest Resp Effort & Inspection: normal respiratory effort, able to speak in complete sentences and no respiratory distress GI Inspection: Yes normal to inspection Back/Spine/Pelvis Cervical Spine: normal cervical lordosis Thoracic/Lumbar Spine: thoracic and lumbar spine normal to inspection Skin General skin exam: no rashes or lesions noted Neuro General: patient oriented x3, gait normal, tone normal and moves all extremities Extrem General: Yes normal to inspection and Yes capillary refill normal Assessment & Plan Assessment & Plan (1) BPH (benign prostatic hyperplasia): Code(s): N40.0 - Benign prostatic hyperplasia without lower urinary tract symptoms (2) Erectile dysfunction: Code(s): N52.9 - Male erectile dysfunction, unspecified (3) Urinary urgency: Code(s): R39.15 - Urgency of urination Plan Six-month follow-up Orders: Orders Prostate Specific Antigen 6 Months N40.0 - Benign prostatic hyperplasia without lower urinary tract symptoms Medications: New finasteride 5 mg PO DAILY 90 tabs 1RF 90 days N13.8 - Other obstructive and reflux uropathy, N40.0 - Benign prostatic hyperplasia without lower urinary tract symptoms, N40.1 - Benign prostatic hyperplasia with lower urinary tract symptoms, R33.9 - Retention of urine, unspecified Patient Instructions: Imaging studies, laboratory and physical exam results were discussed and reviewed in detail. No major barriers to patient understanding were identified. An opportunity to ask questions regarding the treatment plan was provided. All questions were answered. The patient expressed understanding and agreement with the above treatment plan. The patient is aware they should contact our office by phone for worsening of their current condition or the appearance of new urologic symptoms. Compliance is encouraged with any medications and followup testing that is ordered. It is a privilege to participate in the urologic care of your patient. If you have any questions or concerns regarding treatment for the above conditions, or other urologic issues, please do not hesitate to contact me. The office telephone contact is [phone]. This note is constructed using voice recognition software. While every effort has been made to ensure accuracy manager gift errors may have been included. Yours sincerely, Dr Luis Carlos Beauchamp MD, [facility] - Urology Providers of Expert, Compassionate Care for the Genitourinary System Coding Level of Care Code Est Pt Level 4 (71318) Diagnoses BPH (benign prostatic hyperplasia) N40.0 Erectile dysfunction N52.9 Urinary urgency R39.15
== END 2023-08-03 14:43 | disposition home or self-care (01) ==
PROVIDERS: PCP Internal Medicine; Visit Provider Urology
DX: N40.0 Benign prostatic hyperplasia without lower urinary tract symptoms (principal); N52.9 Male erectile dysfunction, unspecified; R39.15 Urgency of urination
CPT/HCPCS: 99214

== ENCOUNTER → 2023-08-03 13:39 | Outpatient (BNVA) | payer OTHER, SELFPAY | PROVIDERS: PCP Internal Medicine; Visit Provider Urology | DX: N40.0 Benign prostatic hyperplasia without lower urinary tract symptoms (principal); N52.9 Male erectile dysfunction, unspecified; R39.15 Urgency of urination | CPT/HCPCS: 99212 ==

== ENCOUNTER → 2023-08-07 13:43 | Outpatient (REF) | payer OTHER, SELFPAY ==
--- NOTE | 2023-08-07 13:47 | CA_ITS ---
Transthoracic Echocardiogram Patient (Last, First, Middle): Christelle Donell, Gender: Male Date of : 1960 Age: 62 Procedure Date: 08/07/2023 Procedure Type: Transthoracic Echocardiogram Location: OP Height: 187.96 cm Weight: 99.79 kg BSA: 2.26 m2 Heart Rate: bpm BP: 140 / 84 mmHg Gastroenterology Professor: NELLI Referring MD: Piotr Gil MD Symptoms: I27.20 - Pulmonary hypertension, unspecified Study Quality: Adequate ECG Rhythm: Sinus Conclusions: - The left ventricular systolic function is normal. The calculated ejection fraction is 66% by biplane method. - There is no evidence of interatrial shunt by agitated saline. - No obvious valvular pathology seen on this study. - There is mild dilatation of the ascending aorta measuring 4.00 cm. - There is no evidence of pulmonary hypertension. Findings Left Ventricle Normal left ventricular cavity size. There is mildly increased left ventricular wall thickness. The left ventricular systolic function is normal. The calculated ejection fraction is 66% by biplane method. There is no evidence of regional wall motion abnormalities. Diastolic function is normal for age. LV peak GLS -20.9%. Right Ventricle Normal right ventricular cavity size and systolic function. Atria The left atrium is mildly dilated. There is no evidence of interatrial shunt by agitated saline. The right atrium is normal in size. (rest and valsalva). Aortic Valve There is a normal trileaflet aortic valve. There is no aortic valve stenosis. There is no aortic valve regurgitation. Mitral Valve The mitral valve appears normal. There is no mitral valve regurgitation. There is no mitral valve stenosis. Pulmonic Valve The pulmonic valve is likely normal. Tricuspid Valve There is trace tricuspid valve regurgitation. There is no evidence of pulmonary hypertension. Great Vessels There is mild dilatation of the ascending aorta measuring 4.00 cm. Venous The inferior vena cava is normal in size and collapses greater than 50% with inspiration. Pericardium/Pleural There is no evidence of pericardial effusion. Prior Study Comparison No significant change compared to prior study dated: 10/30/2017. Recommendations, Care & Conclusions No obvious valvular pathology seen on this study. Measurements 2D Linear Measurements IVSd: 1.27 0.6-0.9/0.6-1.0 cm LVIDd: 5.27 3.9-5.3/4.2-5.9 cm LVIDd Index: 2.33 2.4-3.2/2.2-3.1 cm/m2 LVIDs: 3.41 2.0-3.6 cm LVPWd: 1.24 0.7-1.1 cm LA Diam: 4.10 2.7-3.8/3.0-4.0 cm LAIDs Index: 1.81 1.5-2.3 cm/m2 LV Mass: 337.53 67-162/88-224 g LV Mass Index: 149.35 43-95/49-115 g/m2 LVOT Diam: 2.20 3.0+(-)1.3 cm 2D Systolic Function EF 4C: 63.50 >55% EF 2C: 71.60 >55% EF BiP: 66.20 >55% Mitral Valve MV Pk E: 0.78 MV PK A: 0.58 MV Decel Time: 252.00 E/A: 1.40 E'Lateral: 9.25 E'Medial: 7.29 E/E' Med: 10.80 E/E' Lat: 8.50 PHT: 74.00 MVA PHT: 2.97 Decel Winkler: 3.11 Aortic Valve AoV Pk Td: 1.49 AoV Mn Td: 0.98 AoV VTI: 0.31 AoV Pk Grad: 9.00 Aov Mn Grad: 4.00 LALO Cont.VTI: 3.32 LVOT LVOT Pk Td: 1.29 LVOT Mn Td: 0.81 LVOT VTI: 0.27 LVOT Pk Grad: 7.00 LVOT Mn Grad: 3.00 LVOT Diam: 2.20 LVOT Area: 3.80 Diastolic Function MV Pk E: 0.78 MV Pk A: 0.58 E/A: 1.40 E'Medial: 7.29 E/E' Med: 10.80 E' Laterial: 9.25 E/E' Lat: 8.50 Right Ventricle TAPSE (mm): 26.70 TVS' Dt: 16.40 Tricuspid Valve TR Pk Td: 2.32 TR Pk Grad: 22.00 RA Press: 3.00 RVSP: 25.00 Great Vessels Aorta Sinus of Valsalva: 4.18 2.0-3.[address] [place]: 3.07 1.7-3.4 cm Ao Asc: 4.00 2.1-3.4 cm Updated in Other Vendor System with Status of Final Cristofer Nelson MD electronically signed on 08/08/2023 9:17:30 AM with status of Final
--- NOTE | 2023-08-07 16:21 | PFT_ITS ---
Flows: FEV1: 76 % of predicted at 2.95 L FVC: 83 % of predicted at 4.21 L FEV1/FVC: 70 % Bronchodilator response: Absent Volumes: Patient unable to perform lung volume or diffusion capacity maneuvers. Impression: No obstructive ventilatory defect. No bronchodilator response. Patient unable to perform lung volumes or diffusion capacity maneuvers. MTDD
== END ==
LOC: HO.CARD 13:43
PROVIDERS: PCP Internal Medicine; Visit Provider Hospitalist
DX: I27.20 Pulmonary hypertension, unspecified (principal); I26.99 Other pulmonary embolism without acute cor pulmonale
CPT/HCPCS: 93306; 93356

== ENCOUNTER → 2023-08-07 13:47 | Outpatient (BNV) | payer OTHER, SELFPAY | PROVIDERS: PCP Internal Medicine; Visit Provider Internal Medicine | DX: I26.99 Other pulmonary embolism without acute cor pulmonale (principal) | CPT/HCPCS: 93306 ==

== ENCOUNTER → 2023-08-07 16:21 | Outpatient (BNV) | payer OTHER, SELFPAY | PROVIDERS: PCP Internal Medicine; Visit Provider Internal Medicine Pulmonary Disease | DX: I27.20 Pulmonary hypertension, unspecified (principal); I26.99 Other pulmonary embolism without acute cor pulmonale | CPT/HCPCS: 94060 ==

== ENCOUNTER 2023-08-13 13:57 | Outpatient (AMB) | payer OTHER, SELFPAY ==
--- NOTE | 2023-08-13 14:04 | MHC.OFFVIS ---
Intake Vital Signs 08/13/23 14:05 Height 6 ft 2 in Weight 220 lb BMI 28.2 Pulse 60 Pulse Source Pulse Oximeter Pulse Oximetry (%) 96 Oxygen Delivery Method Room Air Intake Visit Reasons: COPD Telephone Interviewer Required: No Allergies lisinopril Allergy (Unknown, Verified 08/13/23 14:06) Unknown HPI HPI Comments History of Present Illness Details The patient is a 62-year-old gentleman who was in his usual state health until the beginning of the year when he developed an acute right-sided intraparenchymal hemorrhage and stroke with significant left-sided weakness. He was treated acutely in [facility] and then transferred to [facility] in [place]. While in rehab back in October 2022 the patient developed worsening chest discomfort pleuritic in nature along with shortness of breath hemoptysis. He was admitted to [facility] [place] [place] where he was diagnosed with pulmonary emboli and extensive extremity DVT in the left side. It was initially placed on heparin in neurosurgery was consulted because of his relatively recently. Is felt to be stable and the patient also was hemodynamically stable. The patient was placed on Eliquis. He has been on Eliquis ever since. He was high still having significant left lower extremity discomfort and swelling. Therefore he was referred to a vascular surgeon at [facility]. The patient did have lower extremity Dopplers done recently on May 25 it was noted to have still extensive blood clots involving the femoral brain popliteal vein with some degree of chronicity. Breathing arechiga the patient denies any further chest pains or shortness of breath. Although he is limited from a physical activity standpoint. He is currently wheelchair in does have significant limitations to the movement of the left side. On further questioning still the patient does state that even before the stroke he was having some issues with leg spasms and heaviness and discomfort of the left lower extremity. The patient denies ever having history of blood clots or family history of blood clots. Although with this symptoms that he had the question comes up as far as the possibility of previous blood clots and potentially of [id number] shunt that will predispose him to strokes. Therefore will have him undergo ECHO with bubble study and the patient should also undergo a repeat CTA to assess if he still has an clot burden in the lungs especially since he still has them in the like. But, with a history of intracranial hemorrhage the use of anticoagulation becomes tricky specially when you consider other agents such as Coumadin. We will do the initial evaluation but I do believe that an evaluation also from Hematology would be important in view of his comorbidities. We will start with additional blood work to assess for hypercoagulable state while we wait for the other studies. 08/13/2023 the patient is here for pulmonary follow-up visit. Overall the patient seems to be doing well from a respiratory status. Denies any worsening shortness of breath. The patient did undergo a repeat CTA demonstrating resolution of the pulmonary emboli which is reassuring. In addition to that he had an echocardiogram with a bubble study demonstrating no evidence of any shunting and normal cardiac function which is also reassuring. Seems to be tolerating the Eliquis well. He did have a follow-up with vascular surgery regarding his persistent discomfort. He is complaining of left lower extremity pain. He says that some of the discomfort was before the stroke with a blood clot. Still difficult to note with all his comorbidities now. He is taking gabapentin for neuropathic pain. He is also following up with vascular surgery soon. He is going to undergo a repeat lower extremity Doppler soon as Stephanie. In the meantime I did recommend that he continue on the Eliquis 5 mg twice a day as the full therapeutic dose. Specially if he has any chronic DVT. The patient understands that he is high risk for recurrent events should continue on the current therapy. [facility] Medical History (Updated 08/13/23 @ 20:45 by Piotr Gil MD) COPD (chronic obstructive pulmonary disease) DVT (deep venous thrombosis) Hypertension Urinary incontinence Renal cyst, left GERD (gastroesophageal reflux disease) Aortic dilatation Vitamin D deficiency Obesity (BMI 30-39.9) Hypercholesterolemia Vitamin B12 deficiency Pulmonary nodule Elevated blood pressure reading Impaired glucose tolerance Surgical History History of inguinal hernia repair History of tonsillectomy Family History Father Bone cancer Mother Acute CVA (cerebrovascular accident) Social History Housing: House Alcohol intake: never Patient Tobacco Use Status: Never used Tobacco e-Cigarette/Vaping Use: Never Used Second Hand Smoke Exposure: No service: Yes Current occupational status: employed and disabled Cognitive needs: No Hearing needs: No Vision needs: No Review of Systems Const Denies fever(s) Eyes Reports change in vision ENT Reports change in voice Card Denies chest pain and Reports dyspnea on exertion Resp Reports dyspnea on exertion and Denies wheezing GI Denies abdominal pain Musc Reports abnormal gait and Reports radiating pain into limb Skin/Breast Denies rash Neuro Reports abnormal gait, Reports focal weakness and Reports Sensory deficit (Neuro) Gianni/Lymph Denies easy bleeding and Denies easy bruising Aller/Immun Denies wheezing Physical Exam Vital Signs: Last Vital Signs Pulse 60 08/13/23 14:05 Pulse Ox 96 08/13/23 14:05 Oxygen Delivery Method Room Air 08/13/23 14:05 BMI result Body Mass Index 28.2 Const General: comfortable Orientation/consciousness: patient oriented x3 HEENT Head: Yes normocephalic Neck Neck: Yes supple Chest Chest palpation & inspection: normal inspection of the chest Resp Effort & Inspection: normal respiratory effort Auscultation: clear to auscultation bilaterally Cardio Rate: regular rate Rhythm: regular rhythm Heart sounds: S1 normal heart sound present and S2 normal heart sound present GI Palpation (GI): Soft to palpation Skin General skin exam: no rashes or lesions noted Neuro Other: left sided weakness with contractures General: patient oriented x3 Sensory Exam: Sensory deficit (Neuro) Extrem General: No clubbing and No cyanosis Results Reviewed Results Reviewed: Bloodwork to assess hypercoagulable state all negative ECHO with bubble study negative CTA with po PE PFTs with mild obstruction Assessment & Plan Assessment & Plan (1) Left leg DVT: Code(s): I82.402 - Acute embolism and thrombosis of unspecified deep veins of left lower extremity Qualifiers: Affected thrombotic vein of extremity: femoral Chronicity: chronic Qualified Code(s): I82.512 - Chronic embolism and thrombosis of left femoral vein (2) Pulmonary embolism: Comment: October 2022 Code(s): I26.99 - Other pulmonary embolism without acute cor pulmonale Qualifiers: Acute cor pulmonale presence: without acute cor pulmonale Chronicity: chronic Pulmonary embolism type: unspecified Qualified Code(s): I27.82 - Chronic pulmonary embolism (3) CVA (cerebral vascular accident): Code(s): I63.9 - Cerebral infarction, unspecified Qualifiers: CVA mechanism: unspecified Qualified Code(s): I63.9 - Cerebral infarction, unspecified (4) COPD (chronic obstructive pulmonary disease): Comment: based on PFTs Code(s): J44.9 - Chronic obstructive pulmonary disease, unspecified Qualifiers: COPD type: chronic bronchitis Chronic bronchitis type: simple Qualified Code(s): J41.0 - Simple chronic bronchitis Plan continue Eliquis BID F/U with vascular surgery re: chronic DVT on the left. Awaiting repeat LLE doppler start Anoro daily F/U 4 months Medications: New umeclidinium-vilanterol 62.5-25 mcg/actuation (Anoro Ellipta) 1 inh inhalation DAILY 60 ea 11RF J44.89 - Other specified chronic obstructive pulmonary disease Coding Level of Care Code Est Pt Level 5 (51114) Diagnoses Chronic deep vein thrombosis (DVT) of femoral vein of left lower extremity I82.512 Affected thrombotic vein of extremity: femoral Chronicity: chronic Chronic pulmonary embolism without acute cor pulmonale, unspecified pulmonary embolism type I27.82 Acute cor pulmonale presence: without acute cor pulmonale Chronicity: chronic Pulmonary embolism type: unspecified Cerebrovascular accident (CVA), unspecified mechanism I63.9 CVA mechanism: unspecified Simple chronic bronchitis J41.0 COPD type: chronic bronchitis Chronic bronchitis type: simple Time Spent (min) 45
[2023-08-13 14:05] VITALS: PULSE 60; O2SAT 96; BMI 28.2
== END 2023-08-13 14:40 | disposition home or self-care (01) ==
PROVIDERS: PCP Internal Medicine; Visit Provider Hospitalist
DX: I82.512 Chronic embolism and thrombosis of left femoral vein (principal); I27.82 Chronic pulmonary embolism; I63.9 Cerebral infarction, unspecified; J41.0 Simple chronic bronchitis
CPT/HCPCS: 99215

== ENCOUNTER → 2023-08-13 13:57 | Outpatient (BNVA) | payer OTHER, SELFPAY | PROVIDERS: PCP Internal Medicine; Visit Provider Hospitalist | DX: I82.512 Chronic embolism and thrombosis of left femoral vein (principal); I27.82 Chronic pulmonary embolism; I63.9 Cerebral infarction, unspecified; J41.0 Simple chronic bronchitis | CPT/HCPCS: 99212 ==

== ENCOUNTER 2023-08-27 14:30 | Outpatient (REF) | payer OTHER, SELFPAY ==
--- NOTE | ~2023-08-27 | US_ITS ---
EXAMINATION: US VENOUS ULTRASOUND WITH DOPPLER LOWER EXTREMITY, LEFT CLINICAL INFORMATION: Follow-up deep vein thrombosis. COMPARISON: None currently available within our electronic picture archive. The patient reportedly had prior DVT imaging at [facility]. TECHNIQUE: Ultrasound of the deep veins is performed from the hip to the calf with compression sonography and color and pulse Doppler assessment. Spectral analysis with color-flow imaging is performed. FINDINGS: The common femoral vein is compressible and exhibits a normal phasic waveform; this suggests that the iliac veins are widely patent above. Within the proximal thigh, the visualized profunda femoris vein is normal. The examined greater saphenous vein and saphenofemoral junction are normal. Superficial femoral vein is normal in the proximal thigh. There is wall thickening/thrombus of the femoral vein of the ulm-cx-haegg thigh. There is no evidence of any occlusive thrombus. The color Doppler images show presence of flow through these veins. Also observed is some linear echogenicity in the lumen of the femoral vein and proximal popliteal vein. This has the appearance of chronic recanalized thrombus. Also, the linear echogenicity along the posterior tibial vein has the appearance of old recanalized thrombus. The peroneal vein is not adequately visualized. No evidence of Sam's cyst. US/US venous duplex LE LT IMPRESSION: There is nonocclusive thrombus of the left femoral, left popliteal and posterior tibial veins. Some of the thrombus has the appearance of old recanalized clot. No evidence of any occlusive thrombosis. The test result was discussed with Dr. East at 4:15 PM on 08/27/2023 and it was ascertained that the content and the importance of the findings was understood at the time of the direct communication. An addendum can be provided if/when any comparison images become available.
== END 2023-08-27 14:31 | disposition home or self-care (01) ==
LOC: HO.US 14:30
PROVIDERS: PCP Internal Medicine; Visit Provider Internal Medicine Medical Oncology
DX: I82.402 Acute embolism and thrombosis of unspecified deep veins of left lower extremity (principal)
CPT/HCPCS: 93971

== ENCOUNTER 2023-09-03 09:50 | Outpatient (REF) | payer OTHER, SELFPAY | END 2023-09-03 09:51 | disposition home or self-care (01) | LOC: HO.LAB 09:50 | PROVIDERS: PCP Internal Medicine; Visit Provider Urology | DX: Z13.89 Encounter for screening for other disorder (principal) ==

== ENCOUNTER 2023-09-20 14:22 | Outpatient (AMB) | payer OTHER, SELFPAY ==
--- NOTE | 2023-09-20 14:28 | MHC.PC.OV ---
Vital Signs 09/20/23 14:29 Height 6 ft 2 in Weight 214 lb 8.156 oz BMI 27.5 BP 142/90 H Blood Pressure Location Rt brachial Position Sitting Pulse 55 Pulse Source Pulse Oximeter Pulse Oximetry (%) 98 Oxygen Delivery Method Room Air Intake Visit Reasons: CVA, HTN, DVT Intake Note: Patient is here to follow up on CVA, HTN, DVT Maxillofacial Prosthetics Dentist Required: No Allergies lisinopril Allergy (Unknown, Verified 09/20/23 14:48) Unknown Medication List - Last Reconciled 09/20/23 by Shruthi Carrera MD [UNDER PADS disposable As directed] [adult briefs w/ tabs (Extra Large) As directed] amlodipine 10 mg PO DAILY apixaban (Eliquis) 5 mg PO BID [arm trough for wheelchair As directed] atorvastatin 40 mg PO DAILY baclofen 10 mg PO BID PRN 90 days carvedilol 12.5 mg PO BID cholecalciferol (vitamin D3) 125 mcg PO DAILY clotrimazole 1% 1 appl topical BID 4 weeks [commode w/ adjustment handle sides (for extra wide seat) As directed] [CUSTOM AFO for L foot drop As directed] cyanocobalamin (vitamin B-12) 1,000 mcg sublingual DAILY diclofenac sodium 1% 4 grams topical QID docusate sodium 100 mg PO BID PRN finasteride 5 mg PO DAILY 90 days gabapentin 600 mg (2 x 300 mg) PO DAILY 90 days [GAIT BELT As directed] [GLOVES as needed] [Hospital bed trapeze As directedshower chair w/ back and hospital bed trapeze] losartan (Cozaar) 100 mg PO DAILY [Shower chair shower chair w/ back and hospital bed trapeze] [transfer CHAIR regular chair will not fit through doors] umeclidinium-vilanterol 62.5-25 mcg/actuation (Anoro Ellipta) 1 inh inhalation DAILY walker As directed front wheels with left side platform [wheelchair cushion As directed] [WIPES As directed] Tobacco use date assessed: 09/20/23 Fall risk assessment: No Falls in past year Last assessed Fall Risk: 09/20/23 Dental Screening Dental Screen Date: 09/20/23 Did you have a dental visit in the last 12 months?: Yes Did you have a dental problem in the last 6 months where you did not have access to dental care?: No Was dental information given to patient?: Patient has dentist HPI CVA, HTN, DVT HPI Details 62-year-old overweight male with a history of CVA hemorrhagic left leg DVT pulmonary embolism hypertension hypercholesterolemia coming in for follow-up. Last seen in May 2023 through Telehealth patient continues to have physical therapy. Follows up with Hematology-Oncology seen in September 2023. Continue with Eliquis noted on CT scan to have an enlarged prostate had lower extremity ultrasound left August 2023 showing nonocclusive thrombus of the left femoral, left popliteal and posterior tibial veins. Patient did see Pulmonary also for the COPD did undergo CTA repeat demonstrating resolution of pulmonary emboli had an echocardiogram bubble study no evidence of shunting and normal cardiac function patient has been advised to start Anoro inhaler. Echocardiogram done July 2023 The left ventricular systolic function is normal. The calculated ejection fraction is 66% by biplane method. - There is no evidence of interatrial shunt by agitated saline. - No obvious valvular pathology seen on this study. - There is mild dilatation of the ascending aorta measuring 4.00 cm. - There is no evidence of pulmonary hypertension. Patient also had a follow-up with Nephrology but I do not see any notes. 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 As for Nephrology notes hypertension normal kidney function essential patient has been advised 24 ambulatory blood pressure monitor [facility] Medical History (Updated 09/20/23 @ 15:29 by Shruthi Carrera MD) COPD (chronic obstructive pulmonary disease) DVT (deep venous thrombosis) Hypertension Urinary incontinence Renal cyst, left GERD (gastroesophageal reflux disease) Aortic dilatation Vitamin D deficiency Obesity (BMI 30-39.9) Hypercholesterolemia Vitamin B12 deficiency Pulmonary nodule Elevated blood pressure reading Impaired glucose tolerance Surgical History History of inguinal hernia repair History of tonsillectomy Family History Father Bone cancer Mother Acute CVA (cerebrovascular accident) Social History Housing: House Alcohol intake: never Patient Tobacco Use Status: Never used Tobacco e-Cigarette/Vaping Use: Never Used Second Hand Smoke Exposure: No service: Yes Current occupational status: employed and disabled Cognitive needs: No Hearing needs: No Vision needs: No Questionnaire Thrive Questionnaire Date Thrive assessed: 09/20/23 AUDIT C Alcohol Use Questionnaire (AUDIT-C) 1. How often do you have a drink containing alcohol?: Monthly or less 2. How many drinks containing alcohol do you have on a typical day when you are drinking?: 1 or 2 3. How often do you have six or more drinks on one occasion?: Never Total Score: 1 BRISEIDA-7 AMB Questionnaire BRISEIDA-7 Date BRISEIDA - 7 assessed: 09/20/23 Source: Developed by Drs. Sanchez Rivera, Britt Burr, Mike Aponte and colleagues, with an educational tremayne from [employer]. Physical exam (Primary Care) Vital Signs: Last Vital Signs Pulse 55 09/20/23 14:29 BP 142/90 H 09/20/23 14:29 Pulse Ox 98 09/20/23 14:29 Oxygen Delivery Method Room Air 09/20/23 14:29 BMI result Body Mass Index 27.5 Tobacco/Smoking Status: Tobacco use Status Tobacco use date assessed 09/20/23 09/20/23 14:34 Patient Tobacco Use Status Never used Tobacco 09/20/23 14:34 e-Cigarette/Vaping Use Never Used 09/20/23 14:34 Thrive Assessment: Date of Thrive Assessment Date Thrive assessed 09/20/23 09/20/23 14:34 Const Other: Patient comes in on wheelchair with left-sided weakness left arm 3/5 left lower extremity 3/5 left footdrop General: alert; No acute distress Eyes Conjunctivae: conjunctivae normal Resp Auscultation: clear to auscultation bilaterally Cardio Rate: regular rate Rhythm: regular rhythm GI Inspection: Yes normal to inspection Extrem General: Yes normal to inspection and No edema Assessment and Plan Assessment & Plan (1) CVA (cerebral vascular accident): Code(s): I63.9 - Cerebral infarction, unspecified Qualifiers: CVA mechanism: unspecified Qualified Code(s): I63.9 - Cerebral infarction, unspecified Plan: Patient follows up with Neurology continuing with physical therapy and exercise presently on anticoagulation because of the pulmonary embolism continuing with blood pressure control (2) Pulmonary embolism: Comment: October 2022 Code(s): I26.99 - Other pulmonary embolism without acute cor pulmonale Qualifiers: Pulmonary embolism type: unspecified Chronicity: chronic Acute cor pulmonale presence: without acute cor pulmonale Qualified Code(s): I27.82 - Chronic pulmonary embolism Plan: CTA recently negative pulmonary embolism but continuing to have anticoagulation due to chronic DVT on the left (3) Left leg DVT: Code(s): I82.402 - Acute embolism and thrombosis of unspecified deep veins of left lower extremity Qualifiers: Affected thrombotic vein of extremity: femoral Chronicity: chronic Qualified Code(s): I82.512 - Chronic embolism and thrombosis of left femoral vein Plan: Continue with anticoagulation with Eliquis (4) Renal calculi: Comment: 07/2021 Code(s): N20.0 - Calculus of kidney Plan: Keep well hydrated (5) GERD (gastroesophageal reflux disease): Code(s): K21.9 - Gastro-esophageal reflux disease without esophagitis Plan: Avoid the foods that causes that usually spicy foods, tomato products, juices, coffee, soda and foods that your sensitive to. After eating do not lie down, allow 3-4 hours before in lie down. And keep the head of bed above 30 degrees to avoid the acid from going up. (6) COPD (chronic obstructive pulmonary disease): Comment: based on PFTs Code(s): J44.9 - Chronic obstructive pulmonary disease, unspecified Qualifiers: COPD type: chronic bronchitis Chronic bronchitis type: simple Qualified Code(s): J41.0 - Simple chronic bronchitis Plan: Patient follows up with Pulmonary and has been placed on Anoro but patient has not been using it as he has not been having shortness of breath (7) BPH (benign prostatic hyperplasia): Code(s): N40.0 - Benign prostatic hyperplasia without lower urinary tract symptoms Plan: Patient has seen Urology in placed on finasteride. With the frequency advised to hold off liquids 2 hours before sleeping (8) Foot drop, left: Comment: CVA 09/2022 Code(s): M21.372 - Foot drop, left foot Plan: AFO brace prescribed (9) Rosacea: Code(s): L71.9 - Rosacea, unspecified Plan: Metrogel prescribed (10) Left knee pain: Code(s): M25.562 - Pain in left knee Plan: X-ray requested (11) Hypertension: Code(s): I10 - Essential (primary) hypertension Plan: Patient ended up not being able to do the ambulatory blood pressure monitor as the machine was broken. Patient was advised to monitor blood pressure patient has losartan 100 mg once a day carvedilol 12.5 mg twice a day amlodipine 10 mg once a day Orders: Orders XR knee LT 3V Today M25.562 - Pain in left knee Medications: New metronidazole 1% (Metrogel) 1 appl topical BEDTIME 60 grams 0RF L71.9 - Rosacea, unspecified [CUSTOM AFO for L foot drop] As directed 1 ea 0RF I63.9 - Cerebral infarction, unspecified, M21.372 - Foot drop, left foot Coding Level of Care Code Est Pt Level 4 (14250) Diagnoses Cerebrovascular accident (CVA), unspecified mechanism I63.9 CVA mechanism: unspecified Chronic pulmonary embolism without acute cor pulmonale, unspecified pulmonary embolism type I27.82 Pulmonary embolism type: unspecified Chronicity: chronic Acute cor pulmonale presence: without acute cor pulmonale Chronic deep vein thrombosis (DVT) of femoral vein of left lower extremity I82.512 Affected thrombotic vein of extremity: femoral Chronicity: chronic Renal calculi N20.0 GERD (gastroesophageal reflux disease) K21.9 Simple chronic bronchitis J41.0 COPD type: chronic bronchitis Chronic bronchitis type: simple BPH (benign prostatic hyperplasia) N40.0 Foot drop, left M21.372 Rosacea L71.9 Left knee pain M25.562 Hypertension I10
[2023-09-20 14:29] VITALS: BP 142/90; PULSE 55; O2SAT 98; BMI 27.5
== END 2023-09-20 15:36 | disposition home or self-care (01) ==
PROVIDERS: PCP Internal Medicine; Visit Provider Internal Medicine
DX: I27.82 Chronic pulmonary embolism (principal); I82.512 Chronic embolism and thrombosis of left femoral vein; J41.0 Simple chronic bronchitis; Z86.73 Personal history of transient ischemic attack (TIA), and cerebral infarction without residual deficits; N20.0 Calculus of kidney; K21.9 Gastro-esophageal reflux disease without esophagitis; N40.0 Benign prostatic hyperplasia without lower urinary tract symptoms; M21.372 Foot drop, left foot; L71.9 Rosacea, unspecified; M25.562 Pain in left knee; I10 Essential (primary) hypertension
CPT/HCPCS: 99214

== ENCOUNTER 2023-10-08 11:04 | Outpatient (REF) | payer OTHER, SELFPAY ==
--- NOTE | ~2023-10-08 | XR_ITS ---
EXAMINATION: XR KNEE, LEFT CLINICAL INFORMATION: Pain. COMPARISON: Left knee radiographs dated 05/29/2016. TECHNIQUE: AP, lateral, tunnel, and sunrise views of the left knee. FINDINGS: Bony alignment and mineralization are normal. There is marked asymmetric narrowing of the medial joint space compartment, with peripheral osteophyte formation. The lateral joint space compartment is relatively well-maintained, with mild articular surface irregularity and peripheral osteophyte formation. There is mild to moderate narrowing of the patellofemoral compartment, with peripheral osteophyte formation. No fracture, dislocation or joint effusion is seen. There is no foreign body. XR/XR knee LT 3V IMPRESSION: 1. There is tricompartment osteoarthritic change of the left knee, most pronounced of the medial joint space compartment, where degenerative change is marked. 2. No fracture, dislocation or left knee joint effusion is seen.
== END 2023-10-08 11:05 | disposition home or self-care (01) ==
LOC: HO.XRAY 11:04
PROVIDERS: PCP Internal Medicine; Visit Provider Internal Medicine
DX: M25.562 Pain in left knee (principal)
CPT/HCPCS: 73562

== ENCOUNTER 2023-12-18 11:00 | Outpatient (RCR) | payer MEDICARE, OTHER, MEDICAID, SELFPAY ==
--- NOTE | 2023-09-25 13:55 | MHC.PT.EP ---
[facility] [place] Office [facility] [place] Office [address] David Dumont [address] [phone] F: [phone] F: [phone] F: [phone] F: [phone] Physical Therapy Plan of Care Date of Evaluation: 09/20/23 Date of Surgery: Diagnosis: CVA with L hemiparesis Assessment: Pt is a 62 yo male who presents to PT for L hemiparesis. Pt has participated in acute rehab, home rehab, as well as some outpatient rehab for post-stroke treatment. However, he continues to require PT to address impairments found on exam including L knee ROM lacking extension, L hip weakness, abnormal gait with short step length, inability to safely go up and down stairs in his home. Frequency and Duration: The patient will be seen 2-3x/week, x 6 weeks Short Term Goals: 1. In 3 weeks, patient will improve L knee extension AROM 5 degrees in supine and standing to promote limb stability during gait. 2. In 3 weeks, patient will complete standing/stepping transfer with good technique to protect knee/ankle joints. 3. In 3 weeks, patient will be able to use proper breathing technique during single leg hip lift L LE. Issuing Operator Goals: 1. In 6 weeks patient will be able to go up and down 7 steps with 1 rail and SBA to be able to access both floor of his home safely. 2. In 6 weeks, patient will be able to get in and out of his car with set-up assist only to improve his ability to go to appointments. 3. In 6 weeks, patient will be able to complete 2MWT without L knee buckling or need for rest break with LRD and distant S. Treatment Plan: Modalities to reduce pain, spasms and effusion. Manual therapy to restore motion and function. Therapeutic exercise to improve strength and flexibility. Neuromuscular re-education for posture and balance. Therapeutic activities to return to functional activities of daily living. Electronically signed by: Bhavya Hernandez PT, DPT Please sign and return to therapist. Thank you for your referral.
--- NOTE | 2024-01-14 14:04 | MHC.PT.DC ---
[facility] [place] Office [place] Office [place] Office [address] David Dumont [address] [phone] F: [phone] F: [phone] F: [phone] F: [phone] Physical Therapy Discharge Report Diagnosis: CVA with L hemiparesis Date of Surgery: Date of Evaluation: 09/20/23 Date of Discharge: 12/18/23 Treatments to Date: 24 Cancellations to Date: 2 No Shows to Date: 0 Discharge Status: Improved Function Independent with HEP Discharge Summary: Pt participated in 24 PT sessions to address functional mobility, as patient has hemiparesis from CVA and had a major fall. Pt was discovered to have significant L knee buckling and increasing tone which hindered foot placement and recommended to get a AFO to assist with safe ambulation. PT addressed strengthening of L LE, taught him HEP to promote knee extension and DF ROM to improve posture and ability to stand. Pt had no falls since starting PT, and greatly improved foot placement/gait quality during this stent of PT. Despite major improvements with gains on strength and ROM and use of AFO, patient hit a plateau last updated goals, unable to progress to I stair negotiation due to poor set-up in home environment. D/C to HEP on this date with recommendation for continued daily stretching, use of AFO for standing/walking to increase his safety, gait quality, and distance. Pt in agreement with D/C at this time. Despite numerous discussions regarding need for R hand rail to be installed in his home, this has still not been completed, and he will not be able to negotiate stairs at home until this occurs. Electronically signed by: Bhavya Hernandez PT, DPT Please sign and return to therapist. Thank you for your referral.
== END 2024-01-14 14:05 | disposition home or self-care (01) ==
LOC: HO.PT 11:00
PROVIDERS: PCP Internal Medicine; Visit Provider Internal Medicine
DX: I63.9 Cerebral infarction, unspecified (principal)
CPT/HCPCS: 97014; 97110; 97112; 97116; 97140; 97162; 97164; 97530

== ENCOUNTER 2023-12-19 09:47 | Outpatient (REF) | payer MEDICARE, MEDICAID, SELFPAY ==
[2023-12-19 11:12] LABS: MANUAL DIFF FLAG NO
[2023-12-19 12:53] LABS: Basophils Percent Auto 0.5 % (0-2); Eosinophils Absolute Auto 0.1 X10*3/uL (0.0-0.4); Eosinophils Percent Auto 1.3 % (0-4); Hematocrit 40.1 % (42.0-52.0); Hemoglobin 13.6 g/dl (14.0-18.0); Imm Gran Abs Auto 0.01 X10*3/uL (0.00-0.03); Imm Gran Pct Auto 0.2 % (0.0-0.4); Lymphocytes Absolute Auto 1.7 X10*3/uL (1.2-4.9); Lymphocytes Percent Auto 29.7 % (20-40); Mean Corpuscular HGB Conc 33.9 g/dl (31.0-36.0); Mean Corpuscular Hemoglobin 31.3 pg (27.0-33.0); Mean Corpuscular Volume 92.2 fL (80.0-98.0); Mean Platelet Volume 9.3 fL (9.4-12.4); Monocytes Absolute Auto 0.5 X10*3/uL (0.1-1.2); Monocytes Percent Auto 9.3 % (2-11); Neutrophils Absolute Auto 3.3 x10*3/uL (2.0-8.3); Platelet Count 214 X10*3/uL (160-400); Red Blood Count 4.35 X10*6/uL (4.60-5.80); Red Cell Distribution Width 12.7 % (11.0-16.0); White Blood Count 5.6 X10*3/uL (4.8-10.8)
[2023-12-19 14:33] LABS: Folate 5.9 ng/mL (> or = 4.0); Vitamin B12 769 pg/mL (200-900)
== END 2023-12-19 09:48 | disposition home or self-care (01) ==
LOC: HO.LAB 09:47
PROVIDERS: PCP Internal Medicine; Visit Provider Internal Medicine
DX: D64.9 Anemia, unspecified (principal)
CPT/HCPCS: 36415; 82607; 82746; 85025

== ENCOUNTER 2023-12-26 10:00 | Outpatient (RCR) | payer MEDICARE, OTHER, MEDICAID, SELFPAY ==
--- NOTE | 2023-09-19 11:42 | MHC.OT.EP ---
[address] [phone] Occupational Therapy Plan of Care Patient Name: Donell Bourgeois Date of Evaluation: 09/19/23 Diagnosis: CVA w/ Left Hemiparesis Pain Location: Occasional pain in left shoulder Reports nerve pain and spasms through left side Pain Score: 4 Pain Scale Used: Numeric (0 - 10) Aggravating Factors: Symptoms (nerve pain, spasms) Alleviating Factors: Electric blanket, Gabapentin Assessment: Pt w/ acute stroke September 2022, admitted to [facility] then discharged [place] inpatient rehab. Had PE and transferred to [facility], then returned to [place] and finally discharged home to outpatient services including [place] outpatient and then more recently [place] outpatient services. He is now discharged from services (yesterday was last visit) but has been referred to OT/PT at [facility] for cont'd care. and pt presents today for continued evaluation with goal of increasing strength, movement and overall functional use of left upper extremity. He has weakness throughout left arm w/ increased flexor tone, mild subluxation at shoulder and occasional shoulder pain w/ movement due to weakness and limited range. He has difficulty finding comfortable sleeping positions and is assisting with all care at this time. He also has been staying in guest house and has goal of returning to main house w/ bedroom and full bath. He is scheduled for PT assessment tomorrow. I anticipate he will continue to make gains in strength, range and overall return to light use of left hand to assist w/ daily activities. 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 Thank you once again for your referral.
--- NOTE | 2023-11-06 11:18 | MHC.OT.OP ---
[address] [phone] F: [phone] Occupational Therapy Progress Note Patient Name: Donell Bourgeois Diagnosis: CVA w/ Left Hemiparesis Date of Evaluation: 09/19/23 Treatments to Date: 10 Subjective: I stretch in the morning, my helps in the morning and the afternoon Pain Score: 2 Pain Location: Mild pain in left elbow and shoulder Objective Measures: Left shoulder PROM (Manual Muscle Test strength): Flex 0-70 (2/5) Ext WFL (2/5) Int rot WFL (2/5) Ext rot 0-30 (1/5) Left elbow PROM (Manual Muscle Test strength): Flex WFL (1/5) Ext WFL (2/5) Pro WFL (1/5) Sup 0-70 (1/5) Left wrist PROM (Manual Muscle Test strength): Flex WFL (1/5) Ext WFL (0/5) Left hand PROM (Manual Muscle Test strength): Digit flex WFL (1/5 trace movement in index only) Digit ext impaired due to tone and flexor tightness (0/5) Increased tone throughout w/ grossly 3/4 Modified Leann Scale Status: Not Progressing Assessment: Donell was referred to OT for cont'd management of left hemiparesis s/p stroke over one year ago. He has been seen for 10 visits over the past six weeks and during that time has not made gains towards range, strength or functional goals. He is still very w/ limited active movements, has high tone w/ internal rotation at shoulder and limited passive shoulder flexion, external rotation and abduction. We are able to obtain fair muscle contraction w/ NME-Stim for hand/wrist extension and flex but no active carry over. At this time, we will finish up scheduled therapy visits with focus on self management techniques for tone, range and pain. He states he is stretching at home with the assist of his , but he has still not obtained stair lift in order to move up to main living floor with shower access and is assisting with all care. I believe he would benefit from home therapy (OT/PT) assessment for home safety and environmental modifications for optimal participation in daily activities. Short Term Goals: Pt to demo good follow through w/ self P/AAROM to left arm Pt to trial resting hand-wrist orthosis to prevent flexion tightness Pt to demo active hand ext and wrist flex through tenodesis pattern Polysomnographer Goals: Pt to demo active grasp and release of left hand w/ light objects Pt to use left hand for functional cook specialty/hold to assist w/ bimanual tasks and right hand dominance Pt to report ease of shoulder pain in afternoon/evening w/ ease of stretches and modalities for comfort Frequency and Duration: The patient will be seen 2x/wk for 1 week Treatment Plan: Therapeutic Exercise Home Exercise Program Neuro Re-ed Patient Education NMES MHP Soft Tissue Mobilization Wean to home program Electronically Signed By: Jacqueline Pina OTR/L CHT Reviewed/agree with student documentation: Therapist:
--- NOTE | 2023-12-27 14:40 | MHC.OT.DC ---
[address] [phone] F: [phone] Occupational Therapy Discharge Note Patient Name: Donell Bourgeois Provider: Dr Shruthi Carrera Diagnosis: CVA w/ Left Hemiparesis Date of Evaluation: 09/19/23 Date of Discharge: 12/26/23 Treatments to Date: 18 Discharge Status: Independent with HEP Discharge Summary: Donell was referred to OT about one year s/p CVA w/ right hemiplegia. He has done course of OT with focus on rang, strength, stretching, but continues to be very limited in left upper body with minimal active shoulder and elbow and trace active movement of wrist and index. No significant gains made in therapy, he has been unable to progress to functional grasp and release with right hand and focus has been on self management of passive stretching and use of E-stim. He is Ind w/ home program and plans to move temporarily to [employer] for the summer. I do think home therapy services are warranted for optimal functional gains and safety in home environment, and I also believe he and his would benefit from further stroke support groups. Electronically Signed By: ENEDINA Durant/Letitia CHT Reviewed/agree with student documentation: Therapist: Please Sign and return to therapist, thank you for your referral.
== END 2023-12-27 14:41 | disposition home or self-care (01) ==
LOC: HO.OT 10:00
PROVIDERS: PCP Internal Medicine; Visit Provider Internal Medicine
DX: I63.9 Cerebral infarction, unspecified (principal)
CPT/HCPCS: 97014; 97035; 97110; 97112; 97140; 97167; 97760

== ENCOUNTER 2024-01-03 13:00 | Outpatient (AMB) | payer MEDICARE, MEDICAID, SELFPAY ==
--- NOTE | 2024-01-03 13:14 | MHC.OFFVIS ---
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 He was treated acutely in [facility] and then transferred to [facility] in [place]. While in rehab back in October 2022 the patient developed worsening chest discomfort pleuritic in nature along with shortness of breath hemoptysis. He was admitted to [facility] where he was diagnosed with pulmonary emboli and extensive extremity DVT in the left side. It was initially placed on heparin in neurosurgery was consulted because of his relatively recently. Is felt to be stable and the patient also was hemodynamically stable. The patient was placed on Eliquis. He has been on Eliquis ever since. He was high still having significant left lower extremity discomfort and swelling. Therefore he was referred to a vascular surgeon at [facility]. The patient did have lower extremity Dopplers done recently on May 25 it was noted to have still extensive blood clots involving the femoral brain popliteal vein with some degree of chronicity. Breathing arechiga the patient denies any further chest pains or shortness of breath. Although he is limited from a physical activity standpoint. He is currently wheelchair in does have significant limitations to the movement of the left side. On further questioning still the patient does state that even before the stroke he was having some issues with leg spasms and heaviness and discomfort of the left lower extremity. The patient denies ever having history of blood clots or family history of blood clots. Although with this symptoms that he had the question comes up as far as the possibility of previous blood clots and potentially of [id number] shunt that will predispose him to strokes. Therefore will have him undergo ECHO with bubble study and the patient should also undergo a repeat CTA to assess if he still has an clot burden in the lungs especially since he still has them in the like. But, with a history of intracranial hemorrhage the use of anticoagulation becomes tricky specially when you consider other agents such as Coumadin. We will do the initial evaluation but I do believe that an evaluation also from Hematology would be important in view of his comorbidities. We will start with additional blood work to assess for hypercoagulable state while we wait for the other studies. 08/13/2023 the patient is here for pulmonary follow-up visit. Overall the patient seems to be doing well from a respiratory status. Denies any worsening shortness of breath. The patient did undergo a repeat CTA demonstrating resolution of the pulmonary emboli which is reassuring. In addition to that he had an echocardiogram with a bubble study demonstrating no evidence of any shunting and normal cardiac function which is also reassuring. Seems to be tolerating the Eliquis well. He did have a follow-up with vascular surgery regarding his persistent discomfort. He is complaining of left lower extremity pain. He says that some of the discomfort was before the stroke with a blood clot. Still difficult to note with all his comorbidities now. He is taking gabapentin for neuropathic pain. He is also following up with vascular surgery soon. He is going to undergo a repeat lower extremity Doppler soon as Stephanie. In the meantime I did recommend that he continue on the Eliquis 5 mg twice a day as the full therapeutic dose. Specially if he has any chronic DVT. The patient understands that he is high risk for recurrent events should continue on the current therapy. 01/03/2024 the patient is here for a pulmonary follow-up visit. The patient has multiple complaints. Has been complaining of headaches and daytime drowsiness. Seems to have an elevated [place] score of 10/24. Will go ahead and request a home sleep study at this time. He continues to use the Anoro daily. He has been having some cramping sensation sounds like muscle spasms on his left side consistent with CVA. But is also involving the chest muscles. He does take baclofen but just takes it as needed. I did recommend he can take it twice a day regularly to see if this provides some relief. In the meantime we did talk about it providing him with a short-acting beta agonist that he can use as needed if he started developing this tightness sensation. Right now his respiratory exam is reassuring and I do not believe his bronchospasms. He continues on the Eliquis for the history of blood clots DVT. He tolerates the medication well without any minor or major bleeding. Otherwise patient is doing well and will follow-up after his sleep study in 2-3 months. If the patient has any worsening symptoms prior to that he will call for an earlier assessment. [facility] Medical History (Updated 01/06/24 @ 21:24 by Piotr Gil MD) COPD (chronic obstructive pulmonary disease) DVT (deep venous thrombosis) Hypertension Urinary incontinence Renal cyst, left GERD (gastroesophageal reflux disease) Aortic dilatation Vitamin D deficiency Obesity (BMI 30-39.9) Hypercholesterolemia Vitamin B12 deficiency Pulmonary nodule Elevated blood pressure reading Impaired glucose tolerance Surgical History History of inguinal hernia repair History of tonsillectomy Family History Father Bone cancer Mother Acute CVA (cerebrovascular accident) Social History Housing: House Alcohol intake: never Patient Tobacco Use Status: Never used Tobacco e-Cigarette/Vaping Use: Never Used Second Hand Smoke Exposure: No service: Yes Current occupational status: employed and disabled Cognitive needs: No Hearing needs: No Vision needs: No Review of Systems Const Reports daytime sleepiness, Denies fever(s), Reports headache(s) and Reports snoring Eyes Reports change in vision ENT Reports change in voice and Reports headache(s) Card Reports chest pain and Reports dyspnea on exertion Resp Reports dyspnea on exertion, Reports snoring and Denies wheezing GI Denies abdominal pain Musc Reports abnormal gait, Reports myalgias, Reports muscle cramps and Reports radiating pain into limb Skin/Breast Denies rash Neuro Reports abnormal gait, Reports headache(s), Reports focal weakness and Reports Sensory deficit (Neuro) Gianni/Lymph Denies easy bleeding and Denies easy bruising Aller/Immun Denies wheezing Physical Exam Vital Signs: Last Vital Signs Pulse 57 01/03/24 13:15 Pulse Ox 96 01/03/24 13:15 Oxygen Delivery Method Room Air 01/03/24 13:15 BMI result Body Mass Index 26.4 Const General: comfortable Orientation/consciousness: patient oriented x3 HEENT Head: Yes normocephalic Neck Neck: Yes supple Chest Chest palpation & inspection: normal inspection of the chest Resp Effort & Inspection: normal respiratory effort Auscultation: clear to auscultation bilaterally Cardio Rate: regular rate Rhythm: regular rhythm Heart sounds: S1 normal heart sound present and S2 normal heart sound present GI Palpation (GI): Soft to palpation Skin General skin exam: no rashes or lesions noted Neuro Other: left sided weakness with contractures General: patient oriented x3 Sensory Exam: Sensory deficit (Neuro) Extrem General: No clubbing and No cyanosis Assessment & Plan Assessment & Plan (1) BRIGIDA (obstructive sleep apnea): Code(s): G47.33 - Obstructive sleep apnea (adult) (pediatric) Category: Medical (2) Left leg DVT: Code(s): I82.402 - Acute embolism and thrombosis of unspecified deep veins of left lower extremity Category: Medical Qualifiers: Affected thrombotic vein of extremity: femoral Chronicity: chronic Qualified Code(s): I82.512 - Chronic embolism and thrombosis of left femoral vein (3) Pulmonary embolism: Comment: October 2022 Code(s): I26.99 - Other pulmonary embolism without acute cor pulmonale Category: Medical Qualifiers: Acute cor pulmonale presence: without acute cor pulmonale Chronicity: chronic Pulmonary embolism type: unspecified Qualified Code(s): I27.82 - Chronic pulmonary embolism (4) CVA (cerebral vascular accident): Comment: September 2022 with left-sided weakness. Code(s): I63.9 - Cerebral infarction, unspecified Category: Medical Qualifiers: CVA mechanism: unspecified Qualified Code(s): I63.9 - Cerebral infarction, unspecified (5) COPD (chronic obstructive pulmonary disease): Comment: based on PFTs Code(s): J44.9 - Chronic obstructive pulmonary disease, unspecified Category: Medical Qualifiers: COPD type: chronic bronchitis Chronic bronchitis type: simple Qualified Code(s): J41.0 - Simple chronic bronchitis Plan continue Eliquis BID F/U with vascular surgery re: chronic DVT on the left continue Anoro daily start PIERRE as needed increase baclofen BID F/U 4 months Orders: Orders RT home sleep study 01/03/24 G47.33 - Obstructive sleep apnea (adult) (pediatric), J41.0 - Simple chronic bronchitis Medications: New albuterol sulfate 90 mcg/actuation 2 inhalations inhalation Q6H 30 days PRN 18 grams 12RF shortness of breath or wheezing J44.9 - Chronic obstructive pulmonary disease, unspecified Coding Level of Care Code Est Pt Level 4 (83244) Diagnoses BRIGIDA (obstructive sleep apnea) G47.33 Chronic deep vein thrombosis (DVT) of femoral vein of left lower extremity I82.512 Affected thrombotic vein of extremity: femoral Chronicity: chronic Chronic pulmonary embolism without acute cor pulmonale, unspecified pulmonary embolism type I27.82 Acute cor pulmonale presence: without acute cor pulmonale Chronicity: chronic Pulmonary embolism type: unspecified Cerebrovascular accident (CVA), unspecified mechanism I63.9 CVA mechanism: unspecified Simple chronic bronchitis J41.0 COPD type: chronic bronchitis Chronic bronchitis type: simple Time Spent (min) 16
[2024-01-03 13:15] VITALS: PULSE 57; O2SAT 96; BMI 26.4
== END 2024-01-03 13:38 | disposition home or self-care (01) ==
PROVIDERS: PCP Internal Medicine; Visit Provider Hospitalist
DX: G47.33 Obstructive sleep apnea (adult) (pediatric) (principal); I82.512 Chronic embolism and thrombosis of left femoral vein; I27.82 Chronic pulmonary embolism; I63.9 Cerebral infarction, unspecified; J41.0 Simple chronic bronchitis
CPT/HCPCS: 99214

== ENCOUNTER → 2024-01-03 13:00 | Outpatient (BNVA) | payer MEDICARE, MEDICAID, SELFPAY | PROVIDERS: PCP Internal Medicine; Visit Provider Hospitalist | DX: J41.0 Simple chronic bronchitis (principal); I63.9 Cerebral infarction, unspecified; I27.82 Chronic pulmonary embolism; G47.33 Obstructive sleep apnea (adult) (pediatric); I82.512 Chronic embolism and thrombosis of left femoral vein; Z79.01 Long term (current) use of anticoagulants | CPT/HCPCS: 99212 ==

== ENCOUNTER 2024-01-26 08:27 | Outpatient (REF) | payer MEDICARE, MEDICAID, SELFPAY ==
[2024-01-26 11:20] LABS: Prostate Specific Antigen 0.41 ng/mL (<0.05-4.0)
== END 2024-01-26 08:28 | disposition home or self-care (01) ==
LOC: HO.LAB 08:27
PROVIDERS: PCP Internal Medicine; Visit Provider Urology
DX: N40.0 Benign prostatic hyperplasia without lower urinary tract symptoms (principal); Z12.5 Encounter for screening for malignant neoplasm of prostate
CPT/HCPCS: 36415; 84153

== ENCOUNTER 2024-02-05 15:31 | Outpatient (AMB) | payer MEDICARE, MEDICAID, SELFPAY ==
--- NOTE | 2024-02-05 15:32 | MHC.OFFVIS ---
Intake Visit Reasons: 6M PSA/Med Review(set)Finasteride Intake Note: Patient is present for PSA/Med review Allergies lisinopril Allergy (Unknown, Verified 02/05/24 15:34) Unknown HPI Comments Details: Donell is a pleasant male. He is a patient of Dr. Carrera. He is seen for the following urologic conditions - nephrolithiasis - angiomyolipoma - erectile dysfunction Telemedicine Evaluation 15 min Consultation [employer] Jayme Video attempted Six-month follow-up Has been on finasteride for enlarged prostate Will stop finasteride since has some decline in libido has concerns about testosterone levels Will repeat PSA and testosterone in 3 months PSA 09/06 1.1, 02/[address] scan with enlarged prostate, confirms small angiomyolipoma right side Accompanied by his Stroke 2022 with movement deficit on left side Minimal issues with urination Erectile dysfunction Progressive - Able to obtain erection Erection not of adequate rigidity - Unable to maintain Does have associated urinary urge Failed trial daily Cialis secondary to headache Nephrolithiasis Longstanding Minimal symptoms Imaging - 08/06 renal ultrasound - bilateral renal cysts up to 3 cm, right-sided angiomyolipoma 1.5 cm, bilateral small renal stones 5 mm PFSH Medical History COPD (chronic obstructive pulmonary disease) DVT (deep venous thrombosis) Hypertension Urinary incontinence Renal cyst, left GERD (gastroesophageal reflux disease) Aortic dilatation Vitamin D deficiency Obesity (BMI 30-39.9) Hypercholesterolemia Vitamin B12 deficiency Pulmonary nodule Elevated blood pressure reading Impaired glucose tolerance Surgical History History of inguinal hernia repair History of tonsillectomy Family History Father Bone cancer Mother Acute CVA (cerebrovascular accident) Social History Housing: House Alcohol intake: never Patient Tobacco Use Status: Never used Tobacco e-Cigarette/Vaping Use: Never Used Second Hand Smoke Exposure: No service: Yes Current occupational status: employed and disabled Cognitive needs: No Hearing needs: No Vision needs: No Review of Systems Const Denies chills and Denies fever(s) Card Reports no additional complaints and Denies syncope Resp Denies cough GI Denies abdominal pain and Denies heartburn Reports as per HPI and Denies change in libido Neuro Denies syncope Psych Denies change in libido Endo Denies change in libido Physical Exam Const General: cooperative, healthy appearing, comfortable and no acute distress Orientation/consciousness: patient oriented x3 HEENT Face and sinus: Yes normal facial exam Mouth: moist mucous membranes Neck Neck: Yes normal visual inspection, Yes full ROM and Yes trachea midline Chest Chest palpation & inspection: normal inspection of the chest Resp Effort & Inspection: normal respiratory effort, able to speak in complete sentences and no respiratory distress GI Inspection: Yes normal to inspection Back/Spine/Pelvis Cervical Spine: normal cervical lordosis Thoracic/Lumbar Spine: thoracic and lumbar spine normal to inspection Skin General skin exam: no rashes or lesions noted Neuro General: patient oriented x3, gait normal, tone normal and moves all extremities Extrem General: Yes normal to inspection and Yes capillary refill normal Telehealth Telehealth Telehealth Platform: [employer] Location of provider rendering services: practice address Location of patient: address on file Patient Identification confirmed using: Name, : Yes Telehealth method: video Patient verbally consented to treatment: Yes Patient verbally consented to billing insurance company: Yes Patient informed of any privacy concerns related to visit: Yes Minutes spent on Phone/Video with Pt.: 15 Assessment & Plan Assessment & Plan (1) BPH (benign prostatic hyperplasia): Code(s): N40.0 - Benign prostatic hyperplasia without lower urinary tract symptoms Category: Medical Plan Three-month follow-up testosterone and PSA Orders: Orders Testosterone, Free/Total 3 Months N40.0 - Benign prostatic hyperplasia without lower urinary tract symptoms Prostate Specific Antigen 3 Months N40.0 - Benign prostatic hyperplasia without lower urinary tract symptoms Patient Instructions: Imaging studies, laboratory and physical exam results were discussed and reviewed in detail. No major barriers to patient understanding were identified. An opportunity to ask questions regarding the treatment plan was provided. All questions were answered. The patient expressed understanding and agreement with the above treatment plan. The patient is aware they should contact our office by phone for worsening of their current condition or the appearance of new urologic symptoms. Compliance is encouraged with any medications and followup testing that is ordered. It is a privilege to participate in the urologic care of your patient. If you have any questions or concerns regarding treatment for the above conditions, or other urologic issues, please do not hesitate to contact me. The office telephone contact is [phone]. This note is constructed using voice recognition software. While every effort has been made to ensure accuracy employment specialist errors may have been included. Yours sincerely, Dr Luis Carlos Beauchamp MD, [facility] - Urology Providers of Expert, Compassionate Care for the Genitourinary System Coding Level of Care Code Tele Est Pt Level 3 (89476) Diagnoses BPH (benign prostatic hyperplasia) N40.0
== END 2024-02-05 16:07 | disposition home or self-care (01) ==
LOC: HO.HUSH 15:31
PROVIDERS: PCP Internal Medicine; Visit Provider Urology
DX: N40.0 Benign prostatic hyperplasia without lower urinary tract symptoms (principal)
CPT/HCPCS: 99213

== ENCOUNTER → 2024-02-05 15:31 | Outpatient (BNVA) | payer MEDICARE, MEDICAID, SELFPAY | PROVIDERS: PCP Internal Medicine; Visit Provider Urology ==

== ENCOUNTER 2024-02-08 11:42 | Outpatient (AMB) | payer MEDICARE, MEDICAID, SELFPAY ==
--- NOTE | 2024-02-08 11:58 | A.OFFVIS_ITS ---
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 Patient reports bilateral knee pain with his left knee being the worse. States injections about 4 years ago however these did not provide him with much relief. He would like to discuss repeating injections. He mentions discomfort in his right hip. Finds very little relief Tylenol and Motrin, more relief with topical cream. He attends PT. Hx of a recent stroke in 2022. States having botox injections in his hamstring and shoulder every 3 months. 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 Patient reports bilateral knee pain with his left knee being the worse. States injections about 4 years ago however these did not provide him with much relief. He would like to discuss repeating injections. He mentions discomfort in his right hip. Finds very little relief Tylenol and Motrin, more relief with topical cream. He attends PT. Hx of a recent stroke in 2022. This less his left side weak. States having botox injections in his hamstring and shoulder every 3 months. He walks minimally and is here today with his He also complains of right groin pain. He has difficulty getting into and out of his wheelchair or into and out of bed. He feels his range of motion is restricted. [facility] Medical History COPD (chronic obstructive pulmonary disease) DVT (deep venous thrombosis) Hypertension Urinary incontinence Renal cyst, left GERD (gastroesophageal reflux disease) Aortic dilatation Vitamin D deficiency Obesity (BMI 30-39.9) Hypercholesterolemia Vitamin B12 deficiency Pulmonary nodule Elevated blood pressure reading Impaired glucose tolerance Surgical History History of inguinal hernia repair History of tonsillectomy Family History Father Bone cancer Mother Acute CVA (cerebrovascular accident) Social History Housing: House Alcohol intake: never Patient Tobacco Use Status: Never used Tobacco e-Cigarette/Vaping Use: Never Used Second Hand Smoke Exposure: No service: Yes Current occupational status: employed and disabled Cognitive needs: No Hearing needs: No Vision needs: No Physical Exam Vital Signs: BMI result Body Mass Index 26.4 Extrem Other: Mild varus malalignment left knee with tenderness to palpation medial compartment. His range of motion is 15-90 degrees. He has ipsilateral footdrop. He has weak quadriceps strength and can only fully straighten his left knee when leaning back via the upper hamstring and quadriceps attachment. Office Procedures Joint Injection/Aspiration Joint Injection/Aspiration Details: Injected 1 mL of Decadron and 3 mL 1% lidocaine and 3 mL of 0.25% Marcaine. Site was prepped using aseptic technique. Patient tolerated the procedure well. Primary Site: left knee Approach Used: anterolateral Coding - Large joint Procedure code (CPT) selection complete Results Reviewed Results Reviewed: I personally reviewed relevant radiographs. Severe varus pattern osteoarthritis left knee Moderate right hip osteoarthritis Assessment & Plan Assessment & Plan (1) Arthritis of left knee: Code(s): M17.12 - Unilateral primary osteoarthritis, left knee Category: Medical Plan: Left knee osteoarthritis. He has ipsilateral weakness with history of stroke and pulmonary embolism and a blood clot in that leg. He is not a surgical candidate. I injected his left knee and recommend he continue to try to maintain activity and strength with physical therapy. (2) Arthritis of right hip: Code(s): M16.11 - Unilateral primary osteoarthritis, right hip Category: Medical Plan: Patient has right hip osteoarthritis. Again he is not a surgical candidate. I recommend an injection and this was ordered. Orders: Orders XR pelvis 1-2V 02/08/24 M25.559 - Pain in unspecified hip Referrals Pain Management Referral M16.11 - Unilateral primary osteoarthritis, right hip Coding Level of Care Code New Pt Level 4 (41100) Diagnoses Arthritis of left knee M17.12 Arthritis of right hip M16.11 CPT Codes Coding - Large joint: 88335 - Large joint ([id number])
[2024-02-08 12:07] VITALS: BMI 26.4
== END 2024-02-08 13:18 | disposition home or self-care (01) ==
PROVIDERS: PCP Internal Medicine; Visit Provider Orthopaedic Surgery
DX: M17.12 Unilateral primary osteoarthritis, left knee (principal); M16.11 Unilateral primary osteoarthritis, right hip
CPT/HCPCS: 20610; 99204

== ENCOUNTER 2024-02-08 11:42 | Outpatient (REF) | payer MEDICARE, MEDICAID, SELFPAY ==
--- NOTE | ~2024-02-08 | XR_ITS ---
EXAMINATION: XR PELVIS CLINICAL INFORMATION: Hip pain COMPARISON: Hip radiographs 06/15/2016 TECHNIQUE: AP view of the pelvis. FINDINGS: Mild to moderate osteoarthritis of the hips on the right and slightly progressed from prior. No acute fracture or dislocation. Calcified phleboliths in the pelvis. XR/XR pelvis 1-2V IMPRESSION: Mild to moderate osteoarthritis of the hips on the right and slightly progressed from prior.
== END 2024-02-08 11:43 | disposition home or self-care (01) ==
LOC: HO.HOSX 11:42
PROVIDERS: PCP Internal Medicine; Visit Provider Orthopaedic Surgery
DX: M17.12 Unilateral primary osteoarthritis, left knee (principal); M16.11 Unilateral primary osteoarthritis, right hip
CPT/HCPCS: 20610; 72170; 99202; J0665; J1100

== ENCOUNTER 2024-06-06 11:20 | Outpatient (REF) | payer MEDICARE, MEDICAID, SELFPAY ==
[2024-06-06 13:43] LABS: Prostate Specific Antigen 0.97 ng/mL (<0.05-4.0)
[2024-06-14 22:04] LABS: Testosterone, Free 41.3 pg/mL (35.0-155.0); Testosterone, Total 246 ng/dL (250-1100)
== END 2024-06-06 11:21 | disposition home or self-care (01) ==
LOC: HO.LAB 11:20
PROVIDERS: PCP Internal Medicine; Visit Provider Urology
DX: N40.0 Benign prostatic hyperplasia without lower urinary tract symptoms (principal); Z12.5 Encounter for screening for malignant neoplasm of prostate
CPT/HCPCS: 36415; 84153; 84402; 84403

== ENCOUNTER 2024-06-19 10:49 | Outpatient (AMB) | payer OTHER, SELFPAY ==
--- NOTE | 2024-06-19 10:56 | A.OFFVIS_ITS ---
Intake Visit Reasons: PSA/Testosterone(Testo?) Intake Note: Patient is present for PSA/TESTOSTERONE Urology Medication:VITAMIN B12 Antibiotic Allergy:NONE Blood Thinner:ELIQUIS TODAY'S PVR: 0ML'S Engraver Picture Required: No Allergies lisinopril Allergy (Unknown, Verified 06/19/24 10:58) Unknown HPI Comments Details: Donell is a pleasant male. He is a patient of Dr. Carrera. He is seen for the following urologic conditions - nephrolithiasis - angiomyolipoma - erectile dysfunction Three-month follow-up PSA 09/06 1.1, 02/05 0.4. 06/08 T 246 borderline low would like to restart testosterone Prescription provided Recent CT scan with enlarged prostate, confirms small angiomyolipoma right side Accompanied by his Stroke 2022 with movement deficit on left side Minimal issues with urination Erectile dysfunction Progressive - Able to obtain erection Erection not of adequate rigidity - Unable to maintain Does have associated urinary urge Failed trial daily Cialis secondary to headache Nephrolithiasis Longstanding Minimal symptoms Imaging - 08/06 renal ultrasound - bilateral renal cysts up to 3 cm, right-sided angiomyolipoma 1.5 cm, bilateral small renal stones 5 mm PFSH Medical History COPD (chronic obstructive pulmonary disease) DVT (deep venous thrombosis) Hypertension Urinary incontinence Renal cyst, left GERD (gastroesophageal reflux disease) Aortic dilatation Vitamin D deficiency Obesity (BMI 30-39.9) Hypercholesterolemia Vitamin B12 deficiency Pulmonary nodule Elevated blood pressure reading Impaired glucose tolerance Surgical History History of inguinal hernia repair History of tonsillectomy Family History Father Bone cancer Mother Acute CVA (cerebrovascular accident) Social History Housing: House Alcohol intake: never Patient Tobacco Use Status: Never used Tobacco e-Cigarette/Vaping Use: Never Used Second Hand Smoke Exposure: No service: Yes Current occupational status: employed and disabled Cognitive needs: No Hearing needs: No Vision needs: No Review of Systems Const Denies chills and Denies fever(s) Card Reports no additional complaints and Denies syncope Resp Denies cough GI Denies abdominal pain and Denies heartburn Reports as per HPI and Denies change in libido Neuro Denies syncope Psych Denies change in libido Endo Denies change in libido Physical Exam Const General: cooperative, healthy appearing, comfortable and no acute distress Orientation/consciousness: patient oriented x3 HEENT Face and sinus: Yes normal facial exam Mouth: moist mucous membranes Neck Neck: Yes normal visual inspection, Yes full ROM and Yes trachea midline Chest Chest palpation & inspection: normal inspection of the chest Resp Effort & Inspection: normal respiratory effort, able to speak in complete sentences and no respiratory distress GI Inspection: Yes normal to inspection Back/Spine/Pelvis Cervical Spine: normal cervical lordosis Thoracic/Lumbar Spine: thoracic and lumbar spine normal to inspection Skin General skin exam: no rashes or lesions noted Neuro General: patient oriented x3, gait normal, tone normal and moves all extremities Extrem General: Yes normal to inspection and Yes capillary refill normal Office Procedures Post Void Residual Post Residual Void Post Void Residual (PVR): 0 49512-[id number] Void Residual by ultrasound Assessment & Plan Assessment & Plan (1) Hypogonadism in male: Code(s): E29.1 - Testicular hypofunction Category: Medical Plan Three-month follow-up lab work Orders: Orders Prostate Specific Antigen 3 Months E29.1 - Testicular hypofunction Complete Blood Count no Diff 3 Months E29.1 - Testicular hypofunction AMB Urinalysis Automated Today Z13.9 - Encounter for screening, unspecified Testosterone, Total 3 Months E29.1 - Testicular hypofunction Medications: New testosterone apply 1 packet daily - massaged into skin till dry, alternate shoulders 50 mg transdermal DAILY 30 days 150 grams 3RF E29.1 - Testicular hypofunction Patient Instructions: Imaging studies, laboratory and physical exam results were discussed and reviewed in detail. No major barriers to patient understanding were identified. An opportunity to ask questions regarding the treatment plan was provided. All questions were answered. The patient expressed understanding and agreement with the above treatment plan. The patient is aware they should contact our office by phone for worsening of their current condition or the appearance of new urologic symptoms. Compliance is encouraged with any medications and followup testing that is ordered. It is a privilege to participate in the urologic care of your patient. If you have any questions or concerns regarding treatment for the above conditions, or other urologic issues, please do not hesitate to contact me. The office telephone contact is [phone]. This note is constructed using voice recognition software. While every effort has been made to ensure accuracy customer marketing intern errors may have been included. Yours sincerely, Dr Luis Carlos Beauchamp MD, [facility] - Urology Providers of Expert, Compassionate Care for the Genitourinary System Coding Level of Care Code Est Pt Level 4 (92165) Diagnoses Hypogonadism in male E29.1 CPT Codes Post Residual Void - PVR CPT Code: 61848-Krlx Void Residual by ultrasound ([id number])
--- OUTSIDE RECORDS SUMMARY | 2024-06-25 01:45 | XMS_ITS ---
Author Name [facility] Organization Unknown History of Medication Use Medication Directions Dispensed Refills Start Date End Date Stat carvedilol (COREG) 25 MG tablet Take 1 tablet (25 mg total) by mouth 2 (two) times a day with meals. 10/17/2022 active Heparin Sodium, Porcine, (heparin, porcine,) 5000 unit/mL injection Inject 1 mL (5,000 Units total) under the skin every 8 (eight) hours around the clock. Please discontinue once patient is mobilizing more consistently. 10/17/2022 active potassium chloride (KLOR-CON) 20 MEQ packet Take 2 packets (40 mEq total) by mouth daily. 10/17/2022 active nystatin (MYCOSTATIN) 815133 UNIT/ML suspension Take 5 mL (500,000 Units total) by mouth 4 (four) times a day. 10/17/2022 active psyllium (METAMUCIL) 58.12 % Pack packet Take 1 packet by mouth daily. 01/12/2023 active ergocalciferol (VITAMIN D2,DRISDOL) drops Take 0.5 mL (4,000 Units total) by mouth daily. 10/17/2022 active losartan (COZAAR) 25 MG tablet Take 3 tablets (75 mg total) by mouth daily. 10/17/2022 active chlorhexidine (PERIDEX) 0.12 % oral solution Apply 15 mL to the mouth or throat 2 (two) times a day. 10/17/2022 active atorvastatin (LIPITOR) 40 MG tablet Take 1 tablet (40 mg total) by mouth daily. 10/17/2022 active valsartan (DIOVAN) 80 MG tablet Take 1 tablet (80 mg total) by mouth daily. 10/10/2022 suspended amantadine (SYMMETREL) 100 MG capsule Take 1 capsule (100 mg total) by mouth daily. 10/17/2022 active acetaminophen (TYLENOL) 325 MG tablet Take 2 tablets (650 mg total) by mouth every 8 (eight) hours around the clock. 10/17/2022 active baclofen (LIORESAL) 10 MG tablet Take 1 tablet (10 mg total) by mouth nightly. 10/17/2022 active psyllium (METAMUCIL) 58.12 % Pack packet Take 1 packet by mouth daily. 10/17/2022 active amLODIPine (NORVASC) 10 MG tablet Take 1 tablet (10 mg total) by mouth daily. 10/17/2022 active Problems Problem Status Onset Date Problem Type Date of Resoluti on Source Intracerebral hemorrhage, nontraumatic active 2022-09-[address] [facility]
== END 2024-06-19 11:34 | disposition home or self-care (01) ==
PROVIDERS: PCP Internal Medicine; Visit Provider Urology
DX: E29.1 Testicular hypofunction (principal)
CPT/HCPCS: 99214

== ENCOUNTER → 2024-06-19 10:49 | Outpatient (BNVA) | payer OTHER, SELFPAY | PROVIDERS: PCP Internal Medicine; Visit Provider Urology | DX: E29.1 Testicular hypofunction (principal); N52.9 Male erectile dysfunction, unspecified; Z87.442 Personal history of urinary calculi; Z86.018 Personal history of other benign neoplasm | CPT/HCPCS: 51798; 99212 ==

== ENCOUNTER 2024-07-01 10:25 | Outpatient (AMB) | payer MEDICARE, MEDICAID, SELFPAY ==
[2024-07-01 10:36] VITALS: BP 138/80; PULSE 57; O2SAT 95; BMI 27.7
--- NOTE | 2024-07-01 10:36 | A.OFFPC_ITS ---
Vital Signs 07/01/24 10:36 Height 6 ft 2 in Weight 215 lb 6.266 oz BMI 27.7 BP 138/80 Blood Pressure Location Lt brachial Position Sitting Pulse 57 Pulse Source Pulse Oximeter Pulse Oximetry (%) 95 Oxygen Delivery Method Room Air Intake Visit Reasons: Follow Up Allergies lisinopril Allergy (Unknown, Verified 07/01/24 10:38) Unknown Tobacco use date assessed: 09/20/23 Fall risk assessment: No Falls in past year Last assessed Fall Risk: 07/01/24 Dental Screening Dental Screen Date: 09/20/23 HPI Follow Up HPI Details The patient is a 63-year-old male presenting with chronic osteoarthritis, status post-stroke hemiparesis, peripheral edema, neuropathic pain, and a facial rash. He reports a history of osteoarthritis affecting his left knee, and he previously received corticosteroid injections, though he expressed reluctance to undergo additional injections for his hip. The patient also experiences neuropathic pain that begins in the evening, specifically affecting the left side of his body following his stroke, accompanied by left- sided facial numbness. His stroke occurred approximately one year and ten months ago, and he continues to struggle with mobility issues and impaired sensation from the event. He has been utilizing compression stockings and maintaining leg elevation to manage swelling; however, recent exacerbation of leg edema was noted, primarily due to decreased mobility. The patient's history of stroke-related immobility significantly contributes to the peripheral edema. Regarding his facial rash, it involves erythema around the cheeks and nose, worsening occasionally with the use of certain products. Furthermore, he recently saw his urologist for low testosterone levels and has raised concerns about potential depression-like symptoms contributing to decreased energy levels. [facility] Medical History COPD (chronic obstructive pulmonary disease) DVT (deep venous thrombosis) Hypertension Urinary incontinence Renal cyst, left GERD (gastroesophageal reflux disease) Aortic dilatation Vitamin D deficiency Obesity (BMI 30-39.9) Hypercholesterolemia Vitamin B12 deficiency Pulmonary nodule Elevated blood pressure reading Impaired glucose tolerance Surgical History History of inguinal hernia repair History of tonsillectomy Family History Father Bone cancer Mother Acute CVA (cerebrovascular accident) Social History Housing: House Alcohol intake: never Patient Tobacco Use Status: Never used Tobacco Tobacco use type: Cigarette e-Cigarette/Vaping Use: Never Used Second Hand Smoke Exposure: No service: Yes Current occupational status: employed and disabled Cognitive needs: No Hearing needs: No Vision needs: Yes Questionnaire PHQ-9 Over the last 2 weeks, how often have you been bothered by any of the following problems? 1. Little interest or pleasure in doing things: not at all 2. Feeling down, depressed, or hopeless: not at all 3. Trouble falling or staying asleep, or sleeping too much: not at all 4. Feeling tired or having little energy: not at all 5. Poor appetite or overeating: not at all 6. Feeling bad about yourself - or that you are a failure or have let yourself or your family down: not at all 7. Trouble concentrating on things, such as reading the newspaper or watching television: not at all 8. Moving or speaking so slowly that other people could have noticed. Or the opposite - being so fidgety or restless that you have been moving around a lot more than usual: not at all 9. Thoughts that you would be better off or of hurting yourself in some way: not at all Total score: 0 Depression Screening Interpretation: Negative Depression Screening Done: Yes Source: Developed by Drs. Sanchez Rivera, Britt Burr, Mike Aponte and colleagues, with an educational tremayne from [employer]. Thrive Questionnaire Date Thrive assessed: 09/20/23 AUDIT C Alcohol Use Questionnaire (AUDIT-C) 1. How often do you have a drink containing alcohol?: Monthly or less 2. How many drinks containing alcohol do you have on a typical day when you are drinking?: 1 or 2 3. How often do you have six or more drinks on one occasion?: Never Total Score: 1 BRISEIDA-7 AMB Questionnaire BRISEIDA-7 Date BRISEIAD - 7 assessed: 09/20/23 Source: Developed by Drs. Sanchez Rivera, Britt Burr, Mike Aponte and colleagues, with an educational tremayne from [employer]. Physical exam (Primary Care) Vital Signs: Last Vital Signs Pulse 57 07/01/24 10:36 BP 138/80 07/01/24 10:36 Pulse Ox 95 07/01/24 10:36 Oxygen Delivery Method Room Air 07/01/24 10:36 BMI result Body Mass Index 27.7 Tobacco/Smoking Status: Tobacco use Status Tobacco use date assessed 09/20/23 07/01/24 10:39 Patient Tobacco Use Status Never used Tobacco 07/01/24 10:39 Tobacco use type Cigarette 07/01/24 10:39 e-Cigarette/Vaping Use Never Used 07/01/24 10:39 PHQ-9: PHQ-9 Score PHQ-9: Total score 0 07/01/24 11:44 Depression Screening Interpretation: Negative Thrive Assessment: Date of Thrive Assessment Date Thrive assessed 09/20/23 07/01/24 10:39 Const General: alert; No acute distress Eyes Conjunctivae: conjunctivae normal Resp Auscultation: clear to auscultation bilaterally Cardio Rate: regular rate Rhythm: regular rhythm GI Inspection: Yes normal to inspection Neuro Other: Patient has no movement of the left arm and forearm and hands. Patient has 4 or 5 power of the left lower extremity and 4045 dorsiflexion. Right has 5/5 upper extremity and lower extremity. 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 Code(s): I63.9 - Cerebral infarction, unspecified Category: Medical Qualifiers: CVA mechanism: unspecified Qualified Code(s): I63.9 - Cerebral infarction, unspecified Plan: Continuing with anticoagulation as well as exercises (2) Hypercholesterolemia: Code(s): E78.00 - Pure hypercholesterolemia, unspecified Category: Medical Plan: Avoid fried foods, chicken skin, eggs, butter margarine, pastries and meat. Be it pork or beef they have a lot of cholesterol on atorvastatin 40 mg once a day (3) Impaired glucose tolerance: Code(s): R73.02 - Impaired glucose tolerance (oral) Category: Medical Plan: Decrease the amount of carbohydrate intake, pasta, bread, rice and potatoes are all sugar and that is aside from all the sweet stuff, remember that fruits are good but they are Sweet also. (4) Pulmonary embolism: Comment: October 2022 Code(s): I26.99 - Other pulmonary embolism without acute cor pulmonale Category: Medical Qualifiers: Acute cor pulmonale presence: without acute cor pulmonale Chronicity: chronic Pulmonary embolism type: unspecified Qualified Code(s): I27.82 - Chronic pulmonary embolism Plan: Patient follows up with Pulmonary continuing with anticoagulation. Patient has also seen Hematology-Oncology. (5) Left leg DVT: Code(s): I82.402 - Acute embolism and thrombosis of unspecified deep veins of left lower extremity Category: Medical Qualifiers: Affected thrombotic vein of extremity: femoral Chronicity: chronic Qualified Code(s): I82.512 - Chronic embolism and thrombosis of left femoral vein Plan: Continue with anticoagulation patient has seen vascular surgeon. Conservative management (6) Hypertension: Code(s): I10 - Essential (primary) hypertension Category: Medical Plan: Continue with blood pressure medication. Decrease salt intake and exercise on Cozaar 100 mg once a day carvedilol 12.5 mg twice a day amlodipine 10 mg once a day (7) COPD (chronic obstructive pulmonary disease): Comment: based on PFTs Code(s): J44.9 - Chronic obstructive pulmonary disease, unspecified Category: Medical Qualifiers: COPD type: chronic bronchitis Chronic bronchitis type: simple Qualified Code(s): J41.0 - Simple chronic bronchitis Plan: Continue with Anoro inhaler as well as short-acting beta agonist as needed (8) Hypogonadism in male: Code(s): E29.1 - Testicular hypofunction Category: Medical Plan: Patient follows up with urology and has been placed on testosterone (9) Eczema: Code(s): L30.9 - Dermatitis, unspecified Category: Medical (10) Hearing difficulty: Code(s): H91.90 - Unspecified hearing loss, unspecified ear Category: Medical Plan - For osteoarthritis, continue monitoring mobility factors during physical therapy. - For the status post-stroke condition affecting mobility and sensation, occupational and physical therapy referrals have been issued for ongoing rehabilitation. Reinforcement of the importance of muscle training and movement is emphasized to aid recovery. - Peripheral edema management includes continuation of compression stockings, leg elevation, and increased hydration monitoring. Blood testing is requested to reassess kidney and electrolyte balance. - Neuropathic pain will be managed with continued observation, assessing for further therapy needs and potential pharmacological options if current treatment is inadequate. - Facial rash will be treated with a new dermatologic cream, to be applied daily for up to two weeks, with avoidance near the eyes, assessing efficacy before potential adjustment or further dermatological evaluation is considered. - Evaluate the testosterone deficiency with urology consultation, considering the implications on overall well-being and depressive symptoms. - Hearing evaluation ordered due to reported auditory difficulties. - Blood work will include fasting cholesterol, complete metabolic panel, and testosterone levels to assess overall metabolic status. - Referral for occupational therapy for the arm and leg associated with the [facility] home care as requested. - A hearing test referral has been made to assess the reported auditory difficulties. - Confirm the patient's hydration status, reinforcing the necessity to consume adequate fluids daily to alleviate potential factors contributing to peripheral swelling. Orders: Orders PT Evaluation and Treatment Today I63.9 - Cerebral infarction, unspecified Hemoglobin A1c Today R73.02 - Impaired glucose tolerance (oral) Comprehensive Met. Panel Today R73.02 - Impaired glucose tolerance (oral) Prostate Specific Antigen Scr Today R73.02 - Impaired glucose tolerance (oral) OT Evaluation and Treatment Today I63.9 - Cerebral infarction, unspecified Free T4 (Free Thyroxine) Today R73.02 - Impaired glucose tolerance (oral) Complete Blood Count Auto Diff Today R73.02 - Impaired glucose tolerance (oral) Lipid Panel Today E78.00 - Pure hypercholesterolemia, unspecified, R73.02 - Impaired glucose tolerance (oral) Thyroid Stimulating Hormone Today R73.02 - Impaired glucose tolerance (oral) Vitamin B12 and Folate Today R73.02 - Impaired glucose tolerance (oral) Referrals Speech and Hearing Referral H91.90 - Unspecified hearing loss, unspecified ear Medications: New alclometasone 0.05% 1 appl topical BID PRN 45 grams 0RF itching L30.9 - Dermatitis, unspecified Discontinued brimonidine 0.33% Discontinued Reason: Doctor's Order 1 appl topical BEDTIME 30 grams 0RF
== END 2024-07-01 12:08 | disposition home or self-care (01) ==
PROVIDERS: PCP Internal Medicine; Visit Provider Internal Medicine
DX: I63.9 Cerebral infarction, unspecified (principal); E78.00 Pure hypercholesterolemia, unspecified; R73.02 Impaired glucose tolerance (oral); I27.82 Chronic pulmonary embolism; I82.512 Chronic embolism and thrombosis of left femoral vein; I10 Essential (primary) hypertension; J41.0 Simple chronic bronchitis; E29.1 Testicular hypofunction; L30.9 Dermatitis, unspecified; H91.90 Unspecified hearing loss, unspecified ear

== ENCOUNTER → 2024-07-01 10:25 | Outpatient (BNVA) | payer MEDICARE, MEDICAID, SELFPAY | PROVIDERS: PCP Internal Medicine; Visit Provider Internal Medicine | DX: I69.359 Hemiplegia and hemiparesis following cerebral infarction affecting unspecified side (principal); M17.12 Unilateral primary osteoarthritis, left knee; R21 Rash and other nonspecific skin eruption; E78.00 Pure hypercholesterolemia, unspecified; R73.02 Impaired glucose tolerance (oral); I27.82 Chronic pulmonary embolism; I82.512 Chronic embolism and thrombosis of left femoral vein; I10 Essential (primary) hypertension; J41.0 Simple chronic bronchitis; E29.1 Testicular hypofunction; L30.9 Dermatitis, unspecified; H91.90 Unspecified hearing loss, unspecified ear | CPT/HCPCS: 96127; 99212 ==

== ENCOUNTER 2024-08-05 09:30 | Outpatient (REF) | payer MEDICARE, MEDICAID, SELFPAY ==
--- OUTSIDE RECORDS SUMMARY | 2024-08-05 10:24 | XMS_ITS | Continuity of Care Document ---
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 Name Role Phone Shruthi Carrera MD Primary Care Physician Encounter 07/21/24 - 07/28/24 [facility] [address], [address] [place] [address]- Attending Physician: Darren Adrian MD Admitting Physician: Darren Adrian MD Referring Physician: Darren Adrian MD Encounter Type: OutPatient One Time Allergies, Adverse Reactions, Alerts Substance Criticality Severity Reaction Reaction Severity Status lisinopril Joint pain Persistent cough Active Medications amLODIPine 10 mg oral tablet 0 Refills, Maintenance, 02/01/23 3:22:00 PM EDT, Partial fill upon patient request if the prescription is for a schedule II opioid drug. Start Date: 02/01/23 Status: Ordered Repeat number: 1 atorvastatin 40 mg oral tablet 0 Refills, Maintenance, 02/01/23 3:22:00 PM EDT, Partial fill upon patient request if the prescription is for a schedule II opioid drug. Start Date: 02/01/23 Status: Ordered Repeat number: 1 baclofen 10 mg oral tablet 10 mg, 1, tablet, By Mouth, 3 times a day, PRN, hold afternoon dose if drowsy, # 30 tablet, Refills0, Tot. Refills 0, Maintenance, spasm, 06/25/23 11:13:00 AM EST, Do Not Route, Partial fill upon patient request if the prescription is for a schedule II opioid drug. Start Date: 06/25/23 Stop Date: 07/25/23 Status: Ordered Quantity: 30.0 Unit: tablet Repeat number: 1 BACLOFEN 10 MG TABLET BACLOFEN 10 MG TABLET, 0 Refills, Maintenance, 02/01/23 3:23:00 PM EDT Start Date: 02/01/23 Status: Ordered Repeat number: 1 Bilateral Juxtafit Knee-high Compression Garments with 2 pairs of liners Bilateral Juxtafit Knee-high Compression Garments with 2 pairs of liners, See Instructions, # 1 kit, Refills 0, Tot. Refills 0, Maintenance, Dx: Lymphedema Use daily up to 23 hours per day., 02/01/23 3:43:00 PM EDT, Supply Start Date: 02/01/23 Status: Ordered Quantity: 1.0 Unit: kit Repeat number: 1 Indication: Chronic embolism and thrombosis of unspecified deep veins of left proximal lower extremity Botox 100 units injection See Instructions, 200 units total to left hamstrings +/- Left FDS, # 1 kit, 3 Refills, Maintenance,08/09/23 3:34:00 PM EST Start Date: 08/09/23 Status: Ordered Quantity: 1.0 Unit: kit Repeat number: 4 carvedilol 12.5 mg oral tablet Refills 0, Maintenance, 02/01/23 3:22:00 PM EDT, Partial fill upon patient request if the prescription is for a schedule II opioid drug. Start Date: 02/01/23 Status: Ordered Repeat number: 1 Cozaar 25 mg oral tablet Refills 0, Maintenance, 02/01/23 3:22:00 PM EDT, Partial fill upon patient request if the prescription is for a schedule II opioid drug. Start Date: 02/01/23 Status: Ordered Repeat number: 1 diclofenac 1% topical gel 0 Refills, Maintenance, 02/01/23 3:22:00 PM EDT, Partial fill upon patient request if the prescription is for a schedule II opioid drug. Start Date: 02/01/23 Status: Ordered Repeat number: 1 docusate sodium 100 mg oral capsule 0 Refills, Maintenance, 02/01/23 3:23:00 PM EDT, Partial fill upon patient request if the prescription is for a schedule II opioid drug. Start Date: 02/01/23 Status: Ordered Repeat number: 1 Eliquis 5 mg oral tablet 0 Refills, Maintenance, 02/01/23 3:23:00 PM EDT, Partial fill upon patient request if the prescription is for a schedule II opioid drug. Start Date: 02/01/23 Status: Ordered Repeat number: 1 ergocalciferol 8000 iu/ml oral solution 0 Refills, Maintenance, 02/01/23 3:23:00 PM EDT, Partial fill upon patient request if the prescription is for a schedule II opioid drug. Start Date: 02/01/23 Status: Ordered Repeat number: 1 gabapentin 300 mg oral capsule 300 mg, 1, capsule, By Mouth, Daily, Refills 0, Maintenance, 02/01/23 3:22:00 PM EDT, Partial fill upon patient request if the prescription is for a schedule II opioid drug. Start Date: 02/01/23 Status: Ordered Repeat number: 1 losartan 100 mg oral tablet 1 tablet = 100 mg, By Mouth, Daily, 0 Refills, Maintenance, 08/09/23 2:50:00 PM EST, Partial fill upon patient request if the prescription is for a schedule II opioid drug. Start Date: 08/09/23 Status: Ordered Repeat number: 1 nystatin topical 851495 u/gm powder 0 Refills, Maintenance, 02/01/23 3:22:00 PM EDT, Partial fill upon patient request if the prescription is for a schedule II opioid drug. Start Date: 02/01/23 Status: Ordered Repeat number: 1 Super-Strength D-5000 oral tablet 0 Refills, Maintenance, 02/01/23 3:22:00 PM EDT, Partial fill upon patient request if the prescription is for a schedule II opioid drug. Start Date: 02/01/23 Status: Ordered Repeat number: 1 traZODone 50 mg oral tablet Refills 0, Maintenance, 02/01/23 3:22:00 PM EDT, Partial fill upon patient request if the prescription is for a schedule II opioid drug. Start Date: 02/01/23 Status: Ordered Repeat number: 1 valsartan 80 mg oral tablet 80 mg, 1, tablet, By Mouth, Daily, Refills 0, Maintenance, 11/29/21 1:29:00 PM EDT, Partial fill upon patient request if the prescription is for a schedule II opioid drug. Start Date: 11/29/21 Status: Ordered Repeat number: 1 Vitamin B-12 1000 mcg oral tablet Refills 0, Maintenance, 02/01/23 3:22:00 PM EDT, Partial fill upon patient request if the prescription is for a schedule II opioid drug. Start Date: 02/01/23 Status: Ordered Repeat number: 1 Problem List Condition Confirmation Course Effective Dates Status H ealth Status Informant Chronic deep vein thrombosis (DVT) of left thigh Confirmed Active Hypertensive disorder 1 Confirmed 10/22/22 Active Right basal ganglia embolic stroke Confirmed Active Intraparenchymal hemorrhage of brain 2 Confirmed 10/11/22 Active Pulmonary embolism 3 Confirmed 10/22/22 Active Chronic venous hypertension (idiopathic) with other complications of left lower extremity Confirmed Active 1Outside Source Comment: Last Assessment & Plan: #HTN BP stable since admission. Patient symptomatically resolving and PE stable. No signs of RV strain or hypotension. -Continue coreg -Restart amlodipine and losartan 10/26. 2Outside Source Comment: Last Assessment & Plan: Enroll in CVA rehab program [facility] NIHSS: 13 TPA: no IA: no Secondaryprevention: MCT BP as noted below Statin as noted below Follow up: 12/21 1300 stroke, [place] Mobility/ADL Dysfunction/Cognition: PT OT LEGAL COORDINATOR Dysphagia: LEGAL COORDINATOR Sleep: Monitoring Trazodone 50 mg qhs Behavior: Monitoring Neurostimulation: Monitoring Amantadine 100 mg daily dc'ed Mood: Monitoring Pain: Tylenol 650 mg q6h prn Gabapentin 300 mg qhs Diclofenac gel 4 times daily DVT Prophylaxis: Therapeutic anticoagulation Encourage mobility, monitor for signsand symptoms of DVT Bowel/FEN/GI: Timed voiding Titrate to home regimen, change q1-2 days Adult/Pediatric nutrition supplements Supplement: Ensure Plus High Protein [place]; Number of servings: One; Frequency: Breakfast, Dinner Therapeutic trial tray per LEGAL COORDINATOR Therapeutic trial tray per LEGAL COORDINATOR Diet Dysphagia; Minced and moist (IDDSI 5); [...] mg, ED 10/31 #HTN (144-154)/(85-90) 154/90 (11/26 3868) Amlodipine 10 mg daily Losartan 75 mg [...] loading) -Appreciate vascular medicine and NSGY recs Results Radiology Reports * Exam Date Time Procedure Performing Provider Status 07/21/24 12:45 PM Knee 1 or 2 Views Left Tristen Stephenson; Auth (Verified) Notes: (Knee 1 or 2 Views Left) Reason For Exam: Pain RESULT: Knee 1 or 2 Views Left Knee 1 or 2 Views Left INDICATION: Reason: Pain TECHNIQUE: AP and lateral views.. COMPARISON: None. FINDINGS: There is no fracture or focal bony lesion. Medial compartment shows advanced osteoarthritis. Lateral compartment normal. Patellofemoral compartment advanced osteoarthritis.. There is no chondrocalcinosis. There is no joint effusion. IMPRESSION: 1. No bony injury. 2. Prominent osteoarthritic change medial and patellofemoral compartments.. WSN: [id number] Ordering Physician: Darren Adrian Dictated By: Mikel Ferrera MD Dictated Date/Time: 07/21/24 5:25 pm Reviewed By: Mikel Ferrera MD Signed By: Mikel Ferrera MD Signed Date/Time: 07/21/24 5:25 pm Transcribed By: JONY Transcribed Date/Time: 07/21/24 5:23 pm Social History Social History Type Response Smoking Status Never (less than 100 in lifetime) entered on: 02/01/23 Sex Sex Representation Male (finding) Patient Care team information Care Team Personnel Name: Shruthi Carrera MD Position: Reference Physician Member Role: PCP Address: [address] [place] [address] Telecom: Care Team Related Persons Name: REMIGIO TAPIA Insurance Providers Guarantor name: JOSELO TAPIA Health Plan Information #: 1 Payer: MEDICARE PART B OUTPT Member Number: [id number] Policy Number: NA Group Number: NA Health Plan Information #: 2 Payer: [employer] [facility] Member Number: [id number] Policy Number: NA Group Number: NA
--- OUTSIDE RECORDS SUMMARY | 2024-08-05 10:24 | XMS_ITS | Clinical Summary ---
Author Organization [facility] Address [address] [facility] [address] [place] [address] Phone Care Team Providers Care Ore Charger Name Role Phone Shruthi Carrera MD Primary Care Provider [phone] Allergies Active Allergy Reactions Criticality Noted Date Comments Lisinopril Other (see comments) 06/20/2023 Medications Cozaar 100 MG tablet Take 100 mg by mouth 1 (one) time each day 3 Active carvedilol (COREG) 12.5 MG tablet TAKE 1 TABLET ORALLY 2 TIMES A DAY MUST ADMINISTER WITH A MEAL/FOOD, PATIENT CHOICE 3 Active gabapentin (NEURONTIN) 300 MG capsule Refills 0, Maintenance, 02/01/23 15:22:00 EDT, Partial fill upon patient request if the prescription is for a schedule II opioid drug. 3 Active docusate sodium (COLACE) 100 MG capsule TAKE 1 CAPSULE BY MOUTH 2 TIMES A DAY NEEDED FOR CONSTIPATION 3 Active baclofen (LIORESAL) 10 MG tablet Take 10 mg by mouth 3 Active Eliquis 5 MG tablet Take 5 mg by mouth 3 Active atorvastatin (LIPITOR) 40 MG tablet Take 40 mg by mouth 1 (one) time each day 3 Active Diclofenac Sodium 1 % gel APPLY 4 GRAMS TOPICALLY 4 TIMES DAILY FOR KNEE PAIN 3 Active cholecalciferol (VITAMIN D-3) 125 MCG (5000 UT) capsule Take 1 capsule by mouth every morning 3 Active amLODIPine (NORVASC) 10 MG tablet Take 10 mg by mouth 1 (one) time each day Active Cyanocobalamin (B-12) 1000 MCG sublingual tablet DISSOLVE 1 TABLET UNDER THE TONGUE DAILY. 3 Active Active Problems Problem Noted Date Diagnosed Date Infarction of basal ganglia 07/13/202307/16 Acquired renal cystic disease 06/20/2023 Chronic deep venous thrombosis of thigh 06/08/20 23 06/20/2023 Venous hypertension of lower limb 06/08/2023 06/20/2023 Hypertensive disorder 10/22/2022 06/20/2023 Overview (06/20/2023): Outside Source Comment: Last Assessment & Plan: #HTN BP stable since admission. Patient symptomatically resolving and PE stable. No signs of RV strain or hypotension. -Continue coreg -Restart amlodipine and losartan 10/26. Aspiration into respiratory tract 10/22/2022 06/20/2023 Overview (06/20/2023): Last Assessment & Plan: # Fever Pt with notable dysphagia and likely chronic aspiraton in setting of CVA, recently treated with course of abx at [facility] for possible PNA (cefazolin -> cefepime -> cipro). Given dysphagia, CT findings, and hx of witnessed aspiration at [place] [facility], likely aspiration pneumonitis. On morning of 10/23, he endorsed + cough and mild leukocytosis, with rising temp of max 101F. Since 10/24, afebrile and WBC reassuringly downtrending, MRSA nasal swab negative. To complete abx course, switch to levofloxacin PO for 3 additional days. - Aspiration precautions - PACKAGING SALES CONSULTANT eval - Start levofloxacin PO d/c IV cefepime. Finding of sacral region 10/22/2022 023 Overview (06/20/2023): Last Assessment & Plan: Pt with Stage 2 sacral wound per given recent hospitalization. -Q2 turning of patient -Wound ARTIFICIAL CANDY MAKER consulted -Air mattress once on floor for comfort/wound care Finding of functional performance and activity 0 10/11/2022 06/20/2023 Overview (06/20/2023): Last Assessment & Plan: - PT consulted for balance, transfer and gait training - OT consulted for ADL/iADL, cognition training - PACKAGING SALES CONSULTANT consulted for swallowing and communication deficits - Consider SW consult for community reintegration - Consider Psychology: Adjustment - Rehab Nursing for medical education - Review at [facility] weekly Resolved Problems Problem Noted Date Diagnosed Date Resolved Date Solitary pulmonary nodule 06/20/2023 06/20/2023 Dysphagia, oropharyngeal phase 11/27/2022 06/20/2023 06/20/2023 Dyspnea 11/27/2022 06/20/2023 06/20/2023 Hyperlipidemia 11/27/2022 06/20/2023 06/20/2023 Other nontraumatic intracerebral hemorrhage 11/27/2022 06/20/2023 06/20/2023 Overview (06/20/2023): Outside Source Comment: Last Assessment & Plan: Enroll in CVA rehab program [facility] NIHSS: 13 TPA: no IA: no Secondary prevention: MCT BP as noted below Statin as noted below Follow up: 12/21 1300 stroke, [place] Mobility/ADL Dysfunction/Cognition: PT OT PACKAGING SALES CONSULTANT Dysphagia: PACKAGING SALES CONSULTANT Sleep: Monitoring Trazodone 50 mg qhs Behavior: Monitoring Neurostimulation: Monitoring Amantadine 100 mg daily dc'ed Mood: Monitoring Pain: Tylenol 650 mg q6h prn Gabapentin 300 mg qhs Diclofenac gel 4 times daily DVT Prophylaxis: Therapeutic anticoagulation Encourage mobility, monitor for signs and symptoms of DVT Bowel/FEN/GI: Timed voiding Titrate to home regimen, change q1-2 days Adult/Pediatric nutrition supplements Supplement: Ensure Plus High Protein [place]; Number of servings: One; Frequency: Breakfast, Dinner Therapeutic trial tray per PACKAGING SALES CONSULTANT Therapeutic trial tray per PACKAGING SALES CONSULTANT Diet Dysphagia; Minced and moist (IDDSI 5); [...] year follow up MRA to be scheduled Other lack of coordination 11/27/2022 06/20/2023 1 08/21/2022 Personal history of transien t ischemic attack (TIA), and cerebral infarction without residual deficits 11/27/2022 06/20/2023 06/20/2023 Pneumonitis due to inhalatio n of food and vomit 11/27/2022 06/20/2023 06/20/2023 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 Symptomatically, patient feels improvement in his pleuritic pain. -CT Chest: with PE at L/R PA level, multifocal triangular nodular opacities, and diffuse bronchial wall thicken ing with evidence of mucus plugging. - TTE: no evidence of acute RV strain. Plan: -Start apixaban 5mg bid (10mg loading) -Appreciate vascular medicine and NSGY recs Family History Medical History Relation Comments Cancer Father Hypertension Mother Relation Status Comments Father Mother Alive Social History Tobacco Use Types Packs/Day Years Used Date Smoking Tobacco: Never Passive Smoke Exposure: Never Smokeless Tobacco: Never Tobacco Cessation:Counseling Given: No Alcohol Use Standard Drinks/Week Comments No 0 (1 standard drink = 0.6 oz pur e alcohol) Sex and Gender Information Value Date Recorded Sex Assigned at Not on file Legal Sex Male 5:09 PM EST Gender Identity Not on file Sexual Orientation Not on file Last Filed Vital Signs Vital Sign Reading Time Taken Comments Blood Pressure 118/70 06/20/2023 2:05 PM EST Pulse 60 06/20/2023 2:05 PM EST Temperature - - Respiratory Rate - - Oxygen Saturation - - Inhaled Oxygen Concentration - - Weight 97.5 kg (215 lb) 06/20/2023 2:05 PM EST Height - - Body Mass Index - - Plan of Treatment Health Maintenance Due Date Last Done Comments Pneumococcal Vaccine: 65+ Ye ars (1 of 2 - PCV) 1966 Pneumococcal Vaccine: Pediat rics (0 to 5 Years) and At-Risk Patients (6 to 64 Years) (1 of 2 - PCV) 1966 Colorectal Cancer Screening: Annual FOBT 10/19/2007 Colorectal Cancer Screening: Colonoscopy 10/19/2007 Colorectal Cancer Screening: Sigmoidoscopy 10/19/2007 Influenza Vaccine (#1) 2024 Hepatitis B Vaccine Aged Out No longe r eligible based on patient's age to complete this topic Insurance [facility] Care Teams Ore Charger Relationship Specialty Start Date End Date Shruthi Carrera MD [facility] [id number] [place], [place] PCP - General Internal Medicine 06/20/23
--- OUTSIDE RECORDS SUMMARY | 2024-08-05 10:24 | XMS_ITS ---
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) ACTIVE 11/27/2022 UNSTEADINESS ON FEET (R26.81 - ICD-10-CM) ACTIVE 11/27/2022 OTHER LACK OF COORDINATION (R27.8 - ICD-10-CM) ACTIVE 11/27/2022 DYSPHAGIA, OROPHARYNGEAL PHASE (R13.12 - ICD-10-CM) AC TIVE 11/27/2022 ESSENTIAL (PRIMARY) HYPERTENSION (I10 - ICD-10-CM) ACT SUDHEER 11/27/2022 PNEUMONITIS DUE TO INHALATIO N OF FOOD AND VOMIT (J69.0 - ICD-10-CM) ACTIVE 11/27/2022 HYPERLIPIDEMIA, UNSPECIFIED (E78.5 - ICD-10-CM) ACTIVE 11/27/2022 OTHER PULMONARY EMBOLISM WIT HOUT ACUTE COR PULMONALE (I26.99 - ICD-10-CM) ACTIVE 11/27/2022 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) AC TIVE 11/27/2022 VITAMIN D DEFICIENCY, UNSPECIFIED (E55.9 - ICD-10-CM) ACTIVE 11/27/2022 DYSPNEA, UNSPECIFIED (R06.00 - ICD-10-CM) ACTIVE 11/27/2022 PERSONAL HISTORY OF TRANSIEN T ISCHEMIC ATTACK (TIA), AND CEREBRAL INFARCTION WITHOUT RESIDUAL DEFICITS (Z86.73 - ICD-10-CM) ACTIVE 11/27/2022 Results * Basic Metabolic Panel Performed by: [facility] Component Value Range Date CO2 27 mmol/L 22 - 33 12/12/2022 01:5 0 pm EDT GFR 97 60 - 120 12/12/2022 01:5 0 pm EDT Basic Metabolic Panel See Attachment 11/15 01:50 pm EDT POTASSIUM 3.6 mmol/L 3.3 - 5.1 12/12/2022 01:5 0 pm EDT SODIUM 145 mmol/L 133 - 145 12/12/2022 01:5 0 pm EDT BUN 10 mg/dL 10 - 24 12/12/2022 01:5 0 pm EDT CHLORIDE 107 mmol/L 96 - 108 12/12/2022 01:5 0 pm EDT CREATININE 0.8 mg/dL 0.7 - 1.5 12/12/2022 01:5 0 pm EDT GLUCOSE 80 mg/dL 70 - 120 12/12/2022 01:5 0 pm EDT CALCIUM 9.6 mg/dL 8.4 - 10.2 12/12/2022 01:5 0 pm EDT * Basic Metabolic Panel Performed by: [facility] Component Value Range Date CO2 29 mmol/L 22 - 33 12/11/2022 03:1 0 pm EDT GFR 105 60 - 120 12/11/2022 03:1 0 pm EDT * Complete Blood Count (CBC) w/Auto Differential Performed by: [facility] Value Range Date WBC 4.8 K/uL 4.8 - 10.8 12/11/2022 03:1 0 pm EDT MPV 9.8 fL 9.4 - 12.4 12/11/2022 03:1 0 pm EDT NEUTS 45.1 % 40.0 - 70.0 12/11/2022 03:1 0 pm EDT LYMPHS 44.30 % 20.00 - 40.00 12/11/2022 03: 10 pm EDT MONOS 7.50 % 3.00 - 12.00 12/11/2022 03:1 0 pm EDT EOS 2.10 % 0.00 - 5.00 12/11/2022 03:1 0 pm EDT BASO 0.60 % 0.00 - 2.00 12/11/2022 03:1 0 pm EDT ABS NEUTROPHILS 2.18 K/uL 1.80 - 7.70 12/11/2022 0 3:10 pm EDT ABS LYMPHOCYTES 2.14 K/uL 1.00 - 4.30 12/11/2022 0 3:10 pm EDT ABS MONOCYTES 0.36 K/uL 0.20 - 1.00 12/11/2022 03: 10 pm EDT ABS EOSINOPHILS 0.10 K/uL 0.02 - 0.50 12/11/2022 0 3:10 pm EDT ABS BASOPHILS 0.03 K/uL 0.02 - 0.10 12/11/2022 03: 10 pm EDT IMMATURE GRANS% 0.4 % 0.0 - 0.5 12/11/2022 0 3:10 pm EDT ABS IMMATURE GRANS 0.02 K/uL 0.00 - 0.03 03:10 pm EDT ABS NUCLEATED RBC 0.00 K/uL 12/11/2022 03:10 pm EDT Complete Blood Count (CBC) w/Auto Differential See Attachment 12/11/2022 03:10 pm EDT * Basic Metabolic Panel Performed by: [facility] Component Value Range Date CALCIUM 9.5 mg/dL 8.4 - 10.2 12/11/2022 03:1 0 pm EDT * Complete Blood Count (CBC) w/Auto Differential Performed by: [facility] Component Value Range Date PLATELET COUNT 170.0 K/uL 150.0 - 400.0 12/11/2022 0 3:10 pm EDT * Basic Metabolic Panel Performed by: [facility] Value Range Date CHLORIDE 105 mmol/L 96 - 108 12/11/2022 03:1 0 pm EDT * Complete Blood Count (CBC) w/Auto Differential Performed by: [facility] Value Range Date RBC 4.20 M/uL 4.20 - 5.70 12/11/2022 03:1 0 pm EDT * Basic Metabolic Panel Performed by: [facility] Value Range Date CREATININE 0.8 mg/dL 0.7 - 1.5 12/11/2022 03:1 0 pm EDT * Complete Blood Count (CBC) w/Auto Differential Performed by: [facility] Value Range Date HCT 39.7 % 40.0 - 50.0 12/11/2022 03:1 0 pm EDT MCV 94.5 fL 78.0 - 98.0 12/11/2022 03:1 0 pm EDT MCHC 33.2 g/dL 30.0 - 37.0 12/11/2022 03:1 0 pm EDT MCH 31.4 pg 26.0 - 34.0 12/11/2022 03:1 0 pm EDT * Basic Metabolic Panel Performed by: [facility] Value Range Date SODIUM 142 mmol/L 133 - 145 12/11/2022 03:1 0 pm EDT BUN 11 mg/dL 10 - 24 12/11/2022 03:1 0 pm EDT * Complete Blood Count (CBC) w/Auto Differential Performed by: [facility] Component Value Range Date HGB 13.2 g/dL 13.5 - 17.5 12/11/2022 03:1 0 pm EDT * Basic Metabolic Panel Performed by: [employer] [facility] Component Value Range Date POTASSIUM 3.6 mmol/L 3.3 - 5.1 12/11/2022 03:1 0 pm EDT * Complete Blood Count (CBC) w/Auto Differential Performed by: [employer] Component Value Range Date RDW-SD 46.2 fL 37.0 - 51.0 12/11/2022 03:1 0 pm EDT RDW-CV 13.5 % 11.0 - 16.0 12/11/2022 03:1 0 pm EDT * Basic Metabolic Panel Performed by: [employer] Component Value Range Date GLUCOSE 105 mg/dL 70 - 120 12/11/2022 03:1 0 pm EDT * Complete Blood Count (CBC) w/Auto Differential Performed by: [employer] Component Value Range Date HGB 12.6 g/dL 13.5 - 17.5 12/04/2022 01:0 0 pm EDT * Comprehensive Metabolic Panel (CMP) Performed by: [employer] Component Value Range Date POTASSIUM 3.2 mmol/L 3.3 - 5.1 12/04/2022 01:0 0 pm EDT SODIUM 145 mmol/L 133 - 145 12/04/2022 01:0 0 pm EDT BUN 11 mg/dL 10 - 12/04/2022 01:0 0 pm EDT * Complete Blood Count (CBC) w/Auto Differential Performed by: [employer] Component Value Range Date RBC 3.99 M/uL 4.20 - 5.70 12/04/2022 01:0 0 pm EDT MCHC 33.4 g/dL 30.0 - 37.0 12/04/2022 01:0 0 pm EDT MCH 31.6 pg 26.0 - 34.0 12/04/2022 01:0 0 pm EDT HCT 37.7 % 40.0 - 50.0 12/04/2022 01:0 0 pm EDT PLATELET COUNT 154.0 K/uL 150.0 - 400.0 12/04/2022 0 1:00 pm EDT * Comprehensive Metabolic Panel (CMP) Performed by: [facility] Component Value Range Date AST (SGOT) 20 U/L 0 - 37 12/04/2022 01:0 0 pm EDT ALBUMIN 3.6 g/dL 3.2 - 5.2 12/04/2022 01:0 0 pm EDT ALK PHOS 56 U/L 40 - 130 12/04/2022 01:0 0 pm EDT CREATININE 0.8 mg/dL 0.7 - 1.5 12/04/2022 01:0 0 pm EDT CHLORIDE 108 mmol/L 96 - 108 12/04/2022 01:0 0 pm EDT * Complete Blood Count (CBC) w/Auto Differential Performed by: [employer] Component Value Range Date MCV 94.5 fL 78.0 - 98.0 12/04/2022 01:0 0 pm EDT * Comprehensive Metabolic Panel (CMP) Performed by: [facility] Value Range Date GLUCOSE 91 mg/dL 70 - 120 12/04/2022 01:0 0 pm EDT CALCIUM 9.4 mg/dL 8.4 - 10.2 12/04/2022 01:0 0 pm EDT * Complete Blood Count (CBC) w/Auto Differential Performed by: [employer] Component Value Range Date RDW-SD 48.3 fL 37.0 - 51.0 12/04/2022 01:0 0 pm EDT RDW-CV 13.9 % 11.0 - 16.0 12/04/2022 01:0 0 pm EDT * Comprehensive Metabolic Panel (CMP) Performed by: [employer] Component Value Range Date BILIRUBIN TOTAL 0.9 mg/dL 0.0 - 1.2 12/04/2022 0 1:00 pm EDT GFR 97 60 - 120 12/04/2022 01:0 0 pm EDT * Complete Blood Count (CBC) w/Auto Differential Performed by: [facility] Value Range Date WBC 4.5 K/uL 4.8 - 10.8 12/04/2022 01:0 0 pm EDT * Comprehensive Metabolic Panel (CMP) Performed by: [facility] Value Range Date TOTAL PROTEIN 5.8 g/dL 6.4 - 8.3 12/04/2022 01: 00 pm EDT CO2 26 mmol/L 22 - 33 12/04/2022 01:0 0 pm EDT ALT (SGPT) 32 U/L 0 - 40 12/04/2022 01:0 0 pm EDT * Complete Blood Count (CBC) w/Auto Differential Performed by: [facility] Value Range Date MPV 9.5 fL 9.4 - 12.4 12/04/2022 01:0 0 pm EDT NEUTS 40.8 % 40.0 - 70.0 12/04/2022 01:0 0 pm EDT LYMPHS 46.30 % 20.00 - 40.00 12/04/2022 01: 00 pm EDT MONOS 8.60 % 3.00 - 12.00 12/04/2022 01:0 0 pm EDT EOS 3.70 % 0.00 - 5.00 12/04/2022 01:0 0 pm EDT BASO 0.40 % 0.00 - 2.00 12/04/2022 01:0 0 pm EDT ABS NEUTROPHILS 1.85 K/uL 1.80 - 7.70 12/04/2022 0 1:00 pm EDT ABS LYMPHOCYTES 2.10 K/uL 1.00 - 4.30 12/04/2022 0 1:00 pm EDT ABS MONOCYTES 0.39 K/uL 0.20 - 1.00 12/04/2022 01: 00 pm EDT ABS EOSINOPHILS 0.17 K/uL 0.02 - 0.50 12/04/2022 0 1:00 pm EDT ABS BASOPHILS 0.02 K/uL 0.02 - 0.10 12/04/2022 01: 00 pm EDT IMMATURE GRANS% 0.2 % 0.0 - 0.5 12/04/2022 0 1:00 pm EDT ABS IMMATURE GRANS 0.01 K/uL 0.00 - 0.03 01:00 pm EDT ABS NUCLEATED RBC 0.00 K/uL 12/04/2022 01:00 pm EDT Complete Blood Count (CBC) w/Auto Differential See Attachment 12/04/2022 01:00 pm EDT Encounters Encounter Performer Performer Role Encounter Diagnoses Location Date Discharge - Discharged / Transferred to home under care of a home IV drug therapy provider - [facility] - Private home/apt. with home health services [facility] 3 06:04 pm EDT - 3 06:45 pm EDT Social History
--- OUTSIDE RECORDS SUMMARY | 2024-08-05 10:24 | XMS_ITS | Continuity of Care Document ---
Author Organization [facility] Address [address] [place] [address]- Care Team Providers Care Hopper Attendant Name Role Phone Shruthi Carrera MD Primary Care Physician [phone] Encounter [facility] [place](s): 06/18/24 - 07/18/24 [facility] [address] [place] [address]- Encounter Type: Triage Allergies, Adverse Reactions, Alerts Substance Criticality Severity [...] Status: Ordered Repeat number: 1 nystatin topical [id number] u/gm powder 0 Refills, Maintenance, 02/01/23 3:22:00 [...] Condition Confirmation Course Effective Dates Status H ealt Status Informant Chronic deep vein thrombosis (DVT) [...] Plan: Enroll in CVA rehab program [facility] NIHSS: 13 TPA: no IA: no Secondaryprevention: MCT BP as noted below Statin as noted below Follow up: 12/21 1300 stroke, [place] Mobility/ADL Dysfunction/Cognition: 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 Dysphagia: 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 REAMER OPERATOR Sleep: Monitoring Trazodone 50 mg qhs Behavior: Monitoring Neurostimulation: Monitoring Amantadine 100 mg daily dc'ed Mood: Monitoring Pain: Tylenol 650 mg q6h prn Gabapentin 300 mg qhs Diclofenac gel 4 times daily DVT Prophylaxis: Therapeutic anticoagulation Encourage mobility, monitor for signsand symptoms of DVT Bowel/FEN/GI: Timed voiding Titrate to home regimen, change q1-2 days Adult/Pediatric nutrition supplements Supplement: Ensure Plus High Protein [place]; Number of servings: One; Frequency: Breakfast, Dinner Therapeutic trial tray per DOUBLE REAMER OPERATOR Therapeutic trial tray per DOUBLE REAMER OPERATOR Diet Dysphagia; Minced and moist (IDDSI [...] Position: Reference Physician Member Role: PCP Address: [address] [place] [address]- Telecom: Care Team Related Persons Name: REMIGIO TAPIA Insurance Providers Guarantor name: ALY Health Plan Information #: 1 Payer: MEDICARE PART B OUTPT Member Number: NA Policy Number: NA Group Number: NA Health Plan Information #: 2 Payer: [place] Member Number: NA Policy Number: NA Group Number: NA
--- OUTSIDE RECORDS SUMMARY | 2024-08-05 10:24 | XMS_ITS | Continuity of Care Document ---
Author Organization [facility] Address [address] [place] [address]- Care Team Providers Care Learning Center Instructor Name Role Phone Shruthi Carrera MD Primary Care Physician [phone] [id number] Date[facility]s): 07/21/24 - 07/28/24 [facility] [address] [place] [address]- Attending Physician: Darren Adrian MD Referring Physician: Shruthi Carrera MD Encounter Type: Office Visit Allergies, Adverse Reactions, Alerts Substance Criticality Severity [...] Status: Ordered Repeat number: 1 nystatin topical [id number] u/gm powder 0 Refills, Maintenance, 02/01/23 3:22:00 [...] Plan: Enroll in CVA rehab program R [facility] NIHSS: 13 TPA: no IA: no Secondaryprevention: MCT BP as noted below Statin as noted below Follow up: 12/21 1300 stroke, [place] Mobility/ADL Dysfunction/Cognition: 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 Dysphagia: TEAMCENTER SOLUTION ARCHITECT Sleep: Monitoring Trazodone 50 mg qhs Behavior: Monitoring Neurostimulation: Monitoring Amantadine 100 mg daily dc'ed Mood: Monitoring Pain: Tylenol 650 mg q6h prn Gabapentin 300 mg qhs Diclofenac gel 4 times daily DVT Prophylaxis: Therapeutic anticoagulation Encourage mobility, monitor for signsand symptoms of DVT Bowel/FEN/GI: Timed voiding Titrate to home regimen, change q1-2 days Adult/Pediatric nutrition supplements Supplement: Ensure Plus High Protein [place]; Number of servings: One; Frequency: Breakfast, Dinner Therapeutic trial tray per TEAMCENTER SOLUTION ARCHITECT Therapeutic trial tray per TEAMCENTER SOLUTION ARCHITECT Diet Dysphagia; Minced and moist (IDDSI 5); [...] mg, ED 10/31 #HTN (144-154)/(85-90) 154/90 (11/26 1238) Amlodipine 10 mg daily Losartan 75 mg [...] loading) -Appreciate vascular medicine and NSGY recs Vital Signs Most recent to oldest [Reference Range]: 1 Height 188 cm (07/21/24 11:14 AM) Oxygen Saturation [94-100 %] 96 % (07/21/24 11:14 AM) Pulse Rate [55-90 bpm] 56 bpm (07/21/24 11:14 AM) Blood Pressure [90-138/55-84 mm Hg] 116/ 74mm Hg (07/21/24 11:14 AM) Mode of Delivery (Oxygen) Room air (07/21/24 11:14 AM) Blood pressure sites Arm, right (07/21/24 11:14 AM) Social History Social History Type Response Smoking Status Never (less than 100 in lifetime) entered on: 02/01/23 Sex Sex Representation Male (finding) Patient Care team information Care Team Personnel Name: Shruthi Carrera MD Position: Reference Physician Member Role: PCP Address: [address] [place] [address] Telecom: Care Team Related Persons Name: REMIGIO TAPIA Insurance Providers Guarantor name: JOSELO COHENKESHA Health Plan Information #: 2 Payer: [facility] Member Number: [id number] Policy Number: NA Group Number: NA Health Plan Information #: 1 Payer: MEDICARE PART B OUTPT Member Number: [id number] Policy Number: NA Group Number: NA
--- OUTSIDE RECORDS SUMMARY | 2024-08-05 10:24 | XMS_ITS | Clinical Summary ---
Author Organization [facility] Address [address] [place] [address] Care Team Providers Care Certified Hyperbaric Technologist Name Role Phone Shruthi Carrera MD Primary Care Provider [phone] Allergies No known active allergies Medications Medication Sig Dispensed Refills Start Date End Date Status acetaminophen (TYLENOL) 325 MG tabletIndications: Hemorrhagic stroke (HCC) Take 2 tablets (650 mg total) by mouth every 8 (eight) hours around the clock. 180 tablet 10/11/2022 Active amantadine (SYMMETREL) 100 MG capsuleIndications :Hemorrhagic stroke (HCC) Take 1 capsule (100 mg total) by mouth daily. 30 capsule 10/11/2022 Active amLODIPine (NORVASC) 10 MG tabletIndications: Hemorrhagic stroke (HCC) Take 1 tablet (10 mg total) by mouth daily. 30 tablet 10/11/2022 Active atorvastatin (LIPITOR) 40 MG tabletIndications: Hemorrhagic stroke (HCC) Take 1 tablet (40 mg total) by mouth daily. 30 tablet 10/11/2022 Active baclofen (LIORESAL) 10 MG tabletIndications: Hemorrhagic stroke (HCC) Take 1 tablet (10 mg total) by mouth nightly. 30 tablet 10/11/2022 Active carvedilol (COREG) 25 MG tabletIndications: Hemorrhagic stroke (HCC) Take 1 tablet (25 mg total) by mouth 2 (two) times a day with meals. 60 tablet 10/11/2022 Active chlorhexidine (PERIDEX) 0.12 % oral solutionIndication s:Hemorrhagic stroke (HCC) Apply 15 mL to the mouth or throat 2 (two) times a day. 120 mL 10/11/2022 Active ergocalciferol (VITAMIN D2,DRISDOL) dropsIndications:H emorrhagic stroke (HCC) Take 0.5 mL (4,000 Units total) by mouth daily. 9 mL 10/11/2022 Active Heparin Sodium, Porcine, (heparin, porcine,) 5000 unit/mL injectionIndicatio ns:Hemorrhagic stroke (HCC) Inject 1 mL (5,000 Units total) under the skin every 8 (eight) hours around the clock. Please discontinue once patient is mobilizing more consistently. 1 mL 10/11/2022 Active losartan (COZAAR) 25 MG tabletIndications: Hemorrhagic stroke (HCC) Take 3 tablets (75 mg total) by mouth daily. 90 tablet 10/11/2022 Active nystatin (MYCOSTATIN) 445569 UNIT/ML suspensionIndicati ons:Hemorrhagic stroke (HCC) Take 5 mL (500,000 Units total) by mouth 4 (four) times a day. 60 mL 10/11/2022 Active potassium chloride (KLOR-CON) 20 MEQ packetIndications: Hemorrhagic stroke (HCC) Take 2 packets (40 mEq total) by mouth daily. 60 packet 10/11/2022 Active psyllium (METAMUCIL) 58.12 % Pack packetIndications: Hemorrhagic stroke (HCC) Take 1 packet by mouth daily. 30 packet 10/11/2022 Active Active Problems Problem Noted Date Diagnosed Date Intracerebral hemorrhage, nontraumatic 3 Social History Tobacco Use Types Packs/Day Years Used Date Smoking Tobacco: Never Assessed Overall Financial Resource Strain (CARDIA) Answe r Date Recorded How hard is it for you to pa y for the very basics like food, housing, medical care, and heating? Not hard at all 10/02/2022 Hunger Vital Sign Answer Date Recorded Within the past 12 months, y ou worried that your food would run out before you got the money to buy more. Never true 10/03/19 23 Within the past 12 months, t he food you bought just didn't last and you didn't have money to get more. Never true 10/02/2022 PRAPARE - Transportation Answer Date Re corded In the past 12 months, has l ack of transportation kept you from medical appointments or from getting medications? No 09/14 In the past 12 months, has l ack of transportation kept you from meetings, work, or from getting things needed for daily living? No 10/02/2022 Housing Stability Vital Sign Answer Sylvester e Recorded In the last 12 months, was t here a time when you were not able to pay the mortgage or rent on time? No 10/02/2022 In the last 12 months, how many places have you lived? 1 10/02/2022 In the last 12 months, was t here a time when you did not have a steady place to sleep or slept in a jail (including now)? No 10/02/2022 Sex and Gender Information Value Date Recorded Sex Assigned at Male 09/30/2022 11:14 AM EDT Gender Identity Male 09/30/2022 11:14 AM EDT Sexual Orientation Heterosexual (straight) 09/30 11:14 AM EDT Last Filed Vital Signs Vital Sign Reading Time Taken Comments Blood Pressure 133/82 10/11/2022 12:00 PM EDT Pulse 94 10/11/2022 12:00 PM EDT Temperature 37.7 ??C (99.8 ??F) 10/11/2022 7:58 AM ED T Respiratory Rate 18 10/11/2022 12:00 PM EDT Oxygen Saturation 95% 10/11/2022 7:58 AM EDT Inhaled Oxygen Concentration - - Weight 110 kg (242 lb 8.1 oz) 10/05/2022 2:00 AM EDT Height 188 cm (6' 2 ) 10/02/2022 9:00 AM EDT Body Mass Index 31.14 10/02/2022 9:00 AM EDT Plan of Treatment Health Maintenance Due Date Last Done Comments Hepatitis C Virus Screening 1960 HIV Screening 10/19/1971 DTaP/Tdap/Td Vaccines (1 - Tdap) 1977 Colonoscopy 10/19/2003 Pneumococcal Vaccines 50+ (1 of 1 - PCV) 2008 Zoster (Shingles) Vaccine (1 of 2) 2008 Influenza Vaccine 02/14/2024 COVID-19 Vaccine ( - 2023-2 5 season) 2024 RSV Vaccine 60 years and old er and Patients (1 - 1-dose 75+ series) 2033 Hepatitis B Vaccines Aged Out No long er eligible based on patient's age to complete this topic Advance Directives Documents on File Type Date Recorded 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
--- NOTE | 2024-08-06 10:13 | MHC.AU.HA1 ---
Hearing Aid Evaluation Date of Visit: 08/05/24 Historical Information: Description of Hearing: Within normal to borderline at 1kHz sloping to moderately severe sensorineural hearing loss, bilateral. Current personal amplification information, if applicable: none Summary: Donell reports having some trouble hearing for quite some time that was exacerbated by a stroke in 2022. Notes difficulty understanding what is said, especially if the speaker is at a distance. Difficulty hearing in noise noted. Amplification recommended. Discussed benefits and limitations, adjustment to amplification, styles. Recommended RITE. Donell chose rechargeable. Hearing Aid Prescription: Based on the individual?s shared listening needs, communication environments, dexterity, desire for connectivity, and personal preferences, the following prescription for amplification has been made: Right ear: Make, Model, Color: Phonak Audeo I 50 R silver Battery Size: Rechargeable Brake Repairer Railroad/Slim Tube: 2M Type of Earmold/Dome/CShell/SlimTip: med vented Left ear: Make, Model, Color: Phonak Audeo I 50 R silver Battery Size: Rechargeable Brake Repairer Railroad/Slim Tube: 2M Type of Earmold/Dome/CShell/SlimTip: med vented Plan of Care: Patient wishes to purchase hearing aids as prescribed Action Taken/Action Needed: Medical Clearance to be requested from PCP/ENT Hearing Instrument Fitting to be scheduled when materials arrive Primary Diagnosis: H90.3 Bilateral Sensorineural Hearing Loss Signature: Provider: Sam David, CCC-A
== END 2024-08-05 09:31 | disposition home or self-care (01) ==
LOC: HO.SH 09:30
PROVIDERS: Visit Provider Internal Medicine
DX: Z01.118 Encounter for examination of ears and hearing with other abnormal findings (principal); Z46.1 Encounter for fitting and adjustment of hearing aid; H90.3 Sensorineural hearing loss, bilateral
CPT/HCPCS: 92557; 92567; 92591

== ENCOUNTER 2024-09-17 14:08 | Outpatient (REF) | payer MEDICARE, MEDICAID, SELFPAY ==
--- NOTE | 2024-09-17 16:55 | MHC.AU.HA2 ---
Hearing Instrument Fitting- Adult- Binaural Date of Visit: 09/17/24 Hearing Instruments Dispensed: Right Ear: Make, Model, Color, Serial Number: Phonak Audeo I 50 R silver S#[id number] Threading Machine Operator Repair Warranty: 09/23/2027 Threading Machine Operator Loss and Damage Warranty: 09/23/2027 [facility] Service Plan: 09/17/25 Battery Size: Rechargeable Shopping Centre Manager/Slim Tube: 2M Earmold/Dome/CShell/SlimTip: med vented Type of Wax Guard: Cerustop Left Ear: Make, Model, Color, Serial Number: Phonak Audeo I 50 R silver S#[id number] Threading Machine Operator Repair Warranty: 09/23/2027 Threading Machine Operator Loss and Damage Warranty: 09/23/2027 [facility] Service Plan: 09/17/25 Battery Size: Rechargeable Shopping Centre Manager/Slim Tube: 2M Earmold/Dome/CShell/SlimTip: med vented Type of Wax Guard: Cerustop Accessories/Assistive Technology: Phonak Dice Manager YAIMA S#[id number] Summary of Fitting: Fit with and oriented to binaural Phonak Audeo I 50 R HAs. Verified to L adult 5 targets. Good subjected comfort and benefit reported. Practiced insertion and removal. Demonstrated cage maker machine use. Reviewed maintenance and precautions. Counseled on adjustment to amplification. Donell wants to pair aids with his phone but didn't have his phone today. He will try pairing on his own, advised to bring to follow up if he has any trouble. Recommendations: Recommendations: Hearing instrument care and maintenance were discussed and practiced. A hearing instrument follow-up was scheduled. Diagnosis Code(s): Primary Diagnosis: H90.3 Bilateral Sensorineural Hearing Loss Signature: Provider: Sam David, CCC-A
--- OUTSIDE RECORDS SUMMARY | 2024-09-17 17:03 | XMS_ITS | Clinical Summary ---
Author Organization [facility] Address [address] [facility] [address] [place] [address] Phone Care Team Providers Care Campaign Analyst Name Role Phone Shruthi Carrera MD Primary Care Provider [phone] Allergies Active Allergy Reactions Criticality Noted Date [...] recently treated with course of abx at [place] for possible PNA (cefazolin -> cefepime -> cipro). Given dysphagia, CT findings, and hx of witnessed aspiration at [place], likely aspiration pneumonitis. On morning of 10/23, he endorsed + cough and mild leukocytosis, with rising temp of max 101F. Since 10/24, afebrile and WBC reassuringly downtrending, MRSA nasal swab negative. To complete abx course, switch to levofloxacin PO for 3 additional days. - Aspiration precautions - CLERK MANAGER eval - Start levofloxacin PO d/c IV cefepime. Finding of sacral region 10/22/2022 023 Overview (06/20/2023): Last Assessment & Plan: Pt with Stage 2 sacral wound per given recent hospitalization. -Q2 turning of patient -Wound OPTICS MANUFACTURING TECHNICIAN consulted -Air mattress once on floor for comfort/wound care Finding of functional performance and activity 0 10/11/2022 06/20/2023 Overview (06/20/2023): Last Assessment & Plan: - PT consulted for balance, transfer and gait training - OT consulted for ADL/iADL, cognition training - CLERK MANAGER consulted for swallowing and communication deficits - Consider SW consult for community reintegration - Consider Psychology: Adjustment - Rehab Nursing for medical education - Review at [facility] weekly Resolved Problems Problem Noted Date Diagnosed Date Resolved Date Solitary pulmonary nodule 06/20/2023 06/20/2023 Dysphagia, oropharyngeal phase 11/27/2022 06/20/2023 06/20/2023 Dyspnea 11/27/2022 06/20/2023 06/20/2023 Hyperlipidemia 11/27/2022 06/20/2023 06/20/2023 Other nontraumatic intracerebral hemorrhage 11/27/2022 06/20/2023 06/20/2023 Overview (06/20/2023): Outside Source Comment: Last Assessment & Plan: Enroll in CVA rehab program R [facility] NIHSS: 13 TPA: no IA: no Secondary prevention: MCT BP as noted below Statin as noted below Follow up: 12/21 1300 stroke, [place] Mobility/ADL Dysfunction/Cognition: PT OT CLERK MANAGER Dysphagia: CLERK MANAGER Sleep: Monitoring Trazodone 50 mg qhs [...] nutrition supplements Supplement: Ensure Plus High Protein [place]; Number of servings: One; Frequency: Breakfast, Dinner Therapeutic trial tray per CLERK MANAGER Therapeutic trial tray per CLERK MANAGER Diet Dysphagia; Minced and moist (IDDSI [...] patient's age to complete this topic Insurance [facility] Care Teams Campaign Analyst Relationship Specialty Start Date End Date Shruthi Carrera MD [facility] [address] [place], [place] PCP - General Internal Medicine 06/20/23
--- OUTSIDE RECORDS SUMMARY | 2024-09-17 17:03 | XMS_ITS | Continuity of Care Document ---
Author Organization [facility] Address [address] [place] [address]- Care Team Providers Care Suit Attendant Name Role Phone Shruthi Carrera MD Primary Care Physician [place] [facility] [place] 08[place]/24 [facility] [address] [place] [address]- Attending Physician: Toy Stanley Admitting Physician: Toy Stanley Referring Physician: Admtr ArKendra Encounter Type: Triage Allergies, Adverse Reactions, Alerts [...] opioid drug. Start Date: 06/25/23 Stop Date: 1/10/24 Status: Ordered Quantity: 30.0 Unit: tablet Repeat [...] Status: Ordered Repeat number: 1 nystatin topical [id number] u/gm powder 0 Refills, Maintenance, 02/01/23 3:22:00 [...] Plan: Enroll in CVA rehab program R [facility] NIHSS: 13 TPA: no IA: no Secondaryprevention: MCT BP as noted below Statin as noted below Follow up: 12/21 1300 stroke, [place] Mobility/ADL Dysfunction/Cognition: PT OT FISHING GUIDE Dysphagia: FISHING GUIDE Sleep: Monitoring Trazodone 50 mg qhs Behavior: Monitoring Neurostimulation: Monitoring Amantadine 100 mg daily dc'ed Mood: Monitoring Pain: Tylenol 650 mg q6h prn Gabapentin 300 mg qhs Diclofenac gel 4 times daily DVT Prophylaxis: Therapeutic anticoagulation Encourage mobility, monitor for signsand symptoms of DVT Bowel/FEN/GI: Timed voiding Titrate to home regimen, change q1-2 days Adult/Pediatric nutrition supplements Supplement: Ensure Plus High Protein [place]; Number of servings: One; Frequency: Breakfast, Dinner Therapeutic trial tray per FISHING GUIDE Therapeutic trial tray per FISHING GUIDE Diet Dysphagia; Minced and moist (IDDSI 5); [...] Position: Reference Physician Member Role: PCP Address: [address] [place] [address]- Telecom: Care Team Related Persons Name: REMIGIO TAPIA Insurance Providers Guarantor name: JOSELO REGINA Health Plan Information #: 1 Payer: MEDICARE PART B OUTPT Member Number: NA Policy Number: NA Group Number: NA Health Plan Information #: 2 Payer: [employer] Member Number: NA Policy Number: NA Group Number: NA
--- OUTSIDE RECORDS SUMMARY | 2024-09-17 17:03 | XMS_ITS | Clinical Summary ---
Author Organization [facility] Address [address] [place] [address] Care Team Providers Care Galley Stripper Name Role Phone Shruthi Carrera MD Primary Care Provider [phone] Allergies No known active allergies Medications Medication [...] daily. 90 tablet 10/11/2022 Active nystatin (MYCOSTATIN) 467870 UNIT/ML suspensionIndicati ons:Hemorrhagic stroke (HCC) Take 5 [...] place to sleep or slept in a assisted (including now)? 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
--- OUTSIDE RECORDS SUMMARY | 2024-09-17 17:03 | XMS_ITS | Continuity of Care Document ---
Author Organization [facility] Address [address] [place] [address]- Care Team Providers Care Twine Winder Name Role Phone Shruthi Carrera MD [id number] - 08/23/[address] [address]- Attending Physician: Darren Adrian MD Admitting Physician: Darren Adrian MD Referring Physician: Darren Adrian MD Encounter Type: Pre-OutPatient One Time Allergies, Adverse Reactions, Alerts Substance [...] daily up to 23 hours per day., 233:43:00 PM EDT, Supply Start Date: 02/01/23 Status: [...] Status: Ordered Repeat number: 1 nystatin topical 439038 u/gm powder 0 Refills, Maintenance, 02/01/23 3:22:00 [...] Enroll in CVA rehab program [facility] NIHSS: 13 TPA: no IA: no Secondaryprevention: MCT BP as noted below Statin as noted below Follow up: 12/21 1300 stroke, [place] Mobility/ADL Dysfunction/Cognition: 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 Dysphagia: DRYING AND WINDING SUPERVISOR Sleep: Monitoring Trazodone 50 mg qhs Behavior: Monitoring Neurostimulation: Monitoring Amantadine 100 mg daily dc'ed Mood: Monitoring Pain: Tylenol 650 mg q6h prn Gabapentin 300 mg qhs Diclofenac gel 4 times daily DVT Prophylaxis: Therapeutic anticoagulation Encourage mobility, monitor for signsand symptoms of DVT Bowel/FEN/GI: Timed voiding Titrate to home regimen, change q1-2 days Adult/Pediatric nutrition supplements Supplement: Ensure Plus High Protein [place]; Number of servings: One; Frequency: Breakfast, Dinner Therapeutic trial tray per DRYING AND WINDING SUPERVISOR Therapeutic trial tray per DRYING AND WINDING SUPERVISOR Diet Dysphagia; Minced and moist (IDDSI [...] mg, ED 10/31 #HTN (144-154)/(85-90) 154/90 (11/26 8648) Amlodipine 10 mg daily Losartan 75 mg [...] Position: Reference Physician Member Role: PCP Address: [address] [place] [address]- Telecom: Care Team Related Persons Name: REMIGIO TAPIA Insurance Providers Guarantor name: JOSELO REGINA Health Plan Information #: 1 Payer: MEDICARE PART B OUTPT Member Number: [id number] Policy Number: NA Group Number: NA Health Plan Information #: 2 Payer: [employer] Member Number: [id number] Policy Number: NA Group Number: NA
--- OUTSIDE RECORDS SUMMARY | 2024-09-17 17:03 | XMS_ITS | Continuity of Care Document ---
Author Organization [facility] Address [address] [place] [address]- Care Team Providers Care Street Openings Inspector Name Role Phone Shruthi Carrera MD Primary Care Physician [phone] [id number] Date(s): 07/21/24 - 08/23/[address] [address]- Attending Physician: Darren Adrian MD Admitting Physician: [...] Status: Ordered Repeat number: 1 nystatin topical [id number] u/gm powder 0 Refills, Maintenance, 02/01/23 3:22:00 [...] Enroll in CVA rehab program [facility] NIHSS: 13 TPA: no IA: no Secondaryprevention: MCT BP as noted below Statin as noted below Follow up: 12/21 1300 stroke, [place] Mobility/ADL Dysfunction/Cognition: PT OT 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 Dysphagia: 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 Sleep: Monitoring Trazodone 50 mg qhs Behavior: Monitoring Neurostimulation: Monitoring Amantadine 100 mg daily dc'ed Mood: Monitoring Pain: Tylenol 650 mg q6h prn Gabapentin 300 mg qhs Diclofenac gel 4 times daily DVT Prophylaxis: Therapeutic anticoagulation Encourage mobility, monitor for signsand symptoms of DVT Bowel/FEN/GI: Timed voiding Titrate to home regimen, change q1-2 days Adult/Pediatric nutrition supplements Supplement: Ensure Plus High Protein [place]; Number of servings: One; Frequency: Breakfast, Dinner Therapeutic trial tray per 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 Therapeutic trial tray per 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 Diet Dysphagia; Minced and moist (IDDSI 5); [...] mg, ED 10/31 #HTN (144-154)/(85-90) 154/90 (11/26 4068) Amlodipine 10 mg daily Losartan 75 mg [...] Position: Reference Physician Member Role: PCP Address: [address] [place] [address]- Telecom: Care Team Related Persons Name: REMIGIO TAPIA Insurance Providers Guarantor name: JOSELO REGINA Health Plan Information #: 2 Payer: [employer] Member Number: [id number] Policy Number: NA Group Number: NA Health Plan Information #: 1 Payer: MEDICARE PART B OUTPT Member Number: [id number] Policy Number: NA Group Number: NA
== END 2024-09-17 14:09 | disposition home or self-care (01) ==
LOC: HO.HAP 14:08
PROVIDERS: Visit Provider Internal Medicine
DX: Z46.1 Encounter for fitting and adjustment of hearing aid (principal); H90.3 Sensorineural hearing loss, bilateral
CPT/HCPCS: V5011; V5020; V5160; V5261

== ENCOUNTER 2024-10-03 11:23 | Outpatient (REF) | payer MEDICARE, MEDICAID, SELFPAY ==
[2024-10-03 11:40] LABS: MANUAL DIFF FLAG NO
[2024-10-03 12:42] LABS: Basophils Percent Auto 0.6 % (0-2); Eosinophils Absolute Auto 0.1 X10*3/uL (0.0-0.4); Eosinophils Percent Auto 1.9 % (0-4); Hematocrit 43.6 % (42.0-52.0); Hemoglobin 15.1 g/dl (14.0-18.0); Imm Gran Abs Auto 0.01 X10*3/uL (0.00-0.03); Imm Gran Pct Auto 0.2 % (0.0-0.4); Lymphocytes Absolute Auto 1.7 X10*3/uL (1.2-4.9); Lymphocytes Percent Auto 36.5 % (20-40); Mean Corpuscular HGB Conc 34.6 g/dl (31.0-36.0); Mean Corpuscular Hemoglobin 30.4 pg (27.0-33.0); Mean Corpuscular Volume 87.7 fL (80.0-98.0); Mean Platelet Volume 9.2 fL (9.4-12.4); Monocytes Absolute Auto 0.3 X10*3/uL (0.1-1.2); Neutrophils Absolute Auto 2.5 x10*3/uL (2.0-8.3); Neutrophils Percent Auto 53.8 % (45-73); Platelet Count 211 X10*3/uL (160-400); Red Blood Count 4.97 X10*6/uL (4.60-5.80); Red Cell Distribution Width 12.6 % (11.0-16.0); White Blood Count 4.7 X10*3/uL (4.8-10.8)
[2024-10-03 13:22] LABS: Alanine Aminotransferase 25 U/L (0-40); Albumin Level 4.2 g/dL (3.5-5.0); Alkaline Phosphatase 51 U/L (39-117); Anion Gap 11 (12-20); Aspartate Amino Transferase 27 U/L (5-37); Bilirubin Total 0.9 mg/dL (0.0-1.0); Blood Urea Nitrogen 12 mg/dL (9-16); Calcium 9.4 mg/dL (8.4-10.2); Carbon Dioxide 25 mmol/L (22-29); Chloride 110 mmol/L (96-108); Cholesterol 160 mg/dL (<200); Estimated Average Glucose 97 mg/dL; Estimated Glomerular Filt Rate > 60; Glucose Random 93 mg/dL (60-115); HDL Cholesterol 34 mg/dL (>40); Hemoglobin A1C 121.6583 umol/L; LDL Cholesterol Calculated 106 mg/dL (<100); Potassium 3.9 mmol/L (3.3-5.1); Sodium 142 mmol/L (135-145); Total Protein 7.2 g/dL (6.5-8.0); Triglycerides 100 mg/dL (<150)
[2024-10-03 13:40] LABS: Free T4 (Free Thyroxine) 1.13 ng/dL (0.71-1.85); Thyroid Stimulating Hormone 1.05 uIU/mL (0.32-4.0)
[2024-10-03 13:49] LABS: Folate 9.6 ng/mL (> or = 4.0); Prostate Specific Antigen Scr 1.32 ng/mL (<0.05-4.0); Vitamin B12 487 pg/mL (200-900)
== END 2024-10-03 11:24 | disposition home or self-care (01) ==
LOC: HO.LAB 11:23
PROVIDERS: PCP Internal Medicine; Visit Provider Internal Medicine
DX: R73.02 Impaired glucose tolerance (oral) (principal); E78.00 Pure hypercholesterolemia, unspecified; Z12.5 Encounter for screening for malignant neoplasm of prostate
CPT/HCPCS: 36415; 80053; 80061; 82607; 82746; 83036; 84153; 84439; 84443; 85025

== ENCOUNTER 2024-10-06 09:38 | Outpatient (AMB) | payer MEDICARE, MEDICAID, SELFPAY ==
--- NOTE | 2024-10-06 09:47 | A.OFFPC_ITS ---
Vital Signs 10/06/24 09:57 Height 6 ft 2 in Weight 205 lb BMI 26.3 BP 120/72 Blood Pressure Location Lt brachial Position Sitting Pulse 58 Pulse Source Pulse Oximeter Temp Source Temporal Artery Scan Pulse Oximetry (%) 97 Oxygen Delivery Method Room Air Intake Visit Reasons: Cerebrovascular accident Pig Machine Supervisor Required: No Accompanied by: Spouse Allergies lisinopril Allergy (Unknown, Verified 10/06/24 10:05) Unknown Tobacco use date assessed: 10/06/24 Fall risk assessment: No Falls in past year Last assessed Fall Risk: 10/06/24 Dental Screening Dental Screen Date: 10/06/24 Did you have a dental visit in the last 12 months?: Yes Did you have a dental problem in the last 6 months where you did not have access to dental care?: No Was dental information given to patient?: Patient has dentist [facility] Medical History (Updated 10/06/24 @ 10:26 by Shruthi Carrera MD) Obesity (BMI 30-39.9) Pulmonary embolism COPD (chronic obstructive pulmonary disease) DVT (deep venous thrombosis) Hypertension Urinary incontinence Renal cyst, left GERD (gastroesophageal reflux disease) Aortic dilatation Vitamin D deficiency Hypercholesterolemia Vitamin B12 deficiency Pulmonary nodule Elevated blood pressure reading Impaired glucose tolerance Surgical History History of inguinal hernia repair History of tonsillectomy Family History Father Bone cancer Mother Acute CVA (cerebrovascular accident) Social History Housing: House Alcohol intake: never Patient Tobacco Use Status: Never used Tobacco Tobacco use type: Cigarette e-Cigarette/Vaping Use: Never Used Second Hand Smoke Exposure: No service: Yes Current occupational status: employed and disabled Cognitive needs: No Hearing needs: No Vision needs: Yes Questionnaire PHQ-9 Over the last 2 weeks, how often have you been bothered by any of the following problems? 1. Little interest or pleasure in doing things: not at all 2. Feeling down, depressed, or hopeless: not at all 3. Trouble falling or staying asleep, or sleeping too much: not at all 4. Feeling tired or having little energy: not at all 5. Poor appetite or overeating: not at all 6. Feeling bad about yourself - or that you are a failure or have let yourself or your family down: not at all 7. Trouble concentrating on things, such as reading the newspaper or watching television: not at all 8. Moving or speaking so slowly that other people could have noticed. Or the opposite - being so fidgety or restless that you have been moving around a lot more than usual: not at all 9. Thoughts that you would be better off or of hurting yourself in some way: not at all Total score: 0 Depression Screening Interpretation: Negative Depression Screening Done: Yes 19539 - PHQ-9 Billing: Yes Source: Developed by Drs. Sanchez Rivera, Britt Burr, Mike Aponte and colleagues, with an educational tremayne from [employer]. Thrive Questionnaire Date Thrive assessed: 10/06/24 I am a: Patient What is your living situation today?: I have a steady place to live Within the past 12 months, did the food you bought not last and you didn't have the money to get more?: Never true Within the past 12 months, did you worry whether your food would run out before you got money to buy more?: Never true Do you have trouble paying for medicines?: No Do you have trouble getting transportation to medical appointments?: No Do you have trouble paying your heating and electricity bill?: No Do you have trouble taking care of your child, family member or friend?: No Do you have trouble with day-to-day activities such as bathing, preparing meals, shopping, managing finances, etc.?: No Are you currently unemployed and looking for a job?: No Are you interested in more education?: No Please select the resources that you would like help with: None Currently or been in a relationship where the following occur: No concerns reported THRIVE Score: 0 AUDIT C Alcohol Use Questionnaire (AUDIT-C) 1. How often do you have a drink containing alcohol?: Monthly or less 2. How many drinks containing alcohol do you have on a typical day when you are drinking?: 1 or 2 3. How often do you have six or more drinks on one occasion?: Never Total Score: 1 BRISEIDA-7 AMB Questionnaire BRISEIDA-7 Date BRISEIDA - 7 assessed: 10/06/24 Feeling nervous, anxious, or on edge: 0 = Not at all Not being able to stop or control worryin = Not at all Worrying too much about different things: 0 = Not at all Trouble relaxin = Not at all Being so restless that it is hard to sit still: 0 = Not at all Becoming easily annoyed or irritable: 0 = Not at all Feeling afraid as if something awful might happen: 0 = Not at all Total BRISEIDA-7 score (0-4 normal; 5-9 mild; 10-14 moderate; 15-21 severe): 0 Source: Developed by Drs. Sanchez Rivera, Britt Burr, Mike Aponte and colleagues, with an educational tremayne from [employer]. BRISEIDA-7 Assessment Billing BRISEIDA-7 Assessment Tool: BRISEIDA-7 Assessment 76397 Physical exam (Primary Care) Vital Signs: Last Vital Signs Pulse 58 10/06/24 09:57 BP 120/72 10/06/24 09:57 Pulse Ox 97 10/06/24 09:57 Oxygen Delivery Method Room Air 10/06/24 09:57 BMI result Body Mass Index 26.3 Tobacco/Smoking Status: Tobacco use Status Tobacco use date assessed 10/06/24 10/06/24 10:08 Patient Tobacco Use Status Never used Tobacco 10/06/24 09:47 Tobacco use type Cigarette 10/06/24 09:47 e-Cigarette/Vaping Use Never Used 10/06/24 09:47 PHQ-9: PHQ-9 Score PHQ-9: Total score 0 10/06/24 09:49 Depression Screening Interpretation: Negative Thrive Assessment: Date of Thrive Assessment Date Thrive assessed 10/06/24 10/06/24 09:49 Currently or been in a relationship where the following occur: No concerns reported Const General: alert; No acute distress Eyes Conjunctivae: conjunctivae normal Resp Auscultation: clear to auscultation bilaterally Cardio Rate: regular rate Rhythm: regular rhythm GI Inspection: Yes normal to inspection Neuro Other: Left shoulder can move up a little bit but left arm 1/5, left leg have 3/5 can dorsiflex a little bit 2 3/5 can plantar flex 3/5 Extrem General: Yes normal to inspection and No edema Coding Level of Care Code Est Pt Level 4 (88098) Complex EM visit Add On G2211 Diagnoses BRIGIDA (obstructive sleep apnea) G47.33 BPH (benign prostatic hyperplasia) N40.0 Hypertension I10 Cerebrovascular accident (CVA), unspecified mechanism I63.9 CVA mechanism: unspecified Chronic pulmonary embolism without acute cor pulmonale, unspecified pulmonary embolism type I27.82 Pulmonary embolism type: unspecified Chronicity: chronic Acute cor pulmonale presence: without acute cor pulmonale Hypercholesterolemia E78.00 Additional Codes BRISEIDA-7 Assessment Billing - BRISEIDA-7 Assessment Tool: BRISEIDA-7 Assessment 44338 ([id number]) PHQ-9 - 06529 - PHQ-9 Billing: Yes ([id number]) Assessment & Plan Assessment & Plan (1) BRIGIDA (obstructive sleep apnea): Code(s): G47.33 - Obstructive sleep apnea (adult) (pediatric) Category: Medical Plan: Noted patient to have lost a lot of weight. Discussed about sleep apnea problem (2) BPH (benign prostatic hyperplasia): Code(s): N40.0 - Benign prostatic hyperplasia without lower urinary tract symptoms Category: Medical Plan: Patient is on testosterone (3) Hypertension: Code(s): I10 - Essential (primary) hypertension Category: Medical Plan: Continue with blood pressure medication. Decrease salt intake and exercise patient is on amlodipine 10 mg once a day carvedilol 12.5 mg twice a day Cozaar 100 mg once a day (4) CVA (cerebral vascular accident): Comment: September 2022 with left-sided weakness. Code(s): I63.9 - Cerebral infarction, unspecified Category: Medical Qualifiers: CVA mechanism: unspecified Qualified Code(s): I63.9 - Cerebral infarction, unspecified Plan: Continuing with anticoagulation, Control the cholesterol, weight, blood pressure (5) Pulmonary embolism: Comment: October 2022 Code(s): I26.99 - Other pulmonary embolism without acute cor pulmonale Category: Medical Qualifiers: Pulmonary embolism type: unspecified Chronicity: chronic Acute cor pulmonale presence: without acute cor pulmonale Qualified Code(s): I27.82 - Chronic pulmonary embolism Plan: Patient follows up with Hematology-Oncology and continuing with anticoagulation with Eliquis (6) Hypercholesterolemia: Code(s): E78.00 - Pure hypercholesterolemia, unspecified Category: Medical Plan: Avoid fried foods, chicken skin, eggs, butter margarine, pastries and meat. Be it pork or beef they have a lot of cholesterol LDL goal of less than 100 and triglyceride of less than 150 on atorvastatin 40 but increase in cholesterol blood work noted Plan History of Present Illness The patient is a 63-year-old male presenting for a follow-up concerning multiple chronic conditions. Significant past history includes a cerebrovascular accident (CVA) in September 2022 accompanied by left-sided weakness and a diagnosis of carotid aneurysm. In October 2022, he experienced a pulmonary embolism and left leg deep vein thrombosis (DVT). Medication management includes Eliquis therapy. Hypertension management involves a regimen of amlodipine, carvedilol, and losartan. Hyperlipidemia treatment with atorvastatin has encountered issues with joint pain, and cholesterol levels have risen from 50 to 106. Additionally, the patient is addressing GERD, BPH confirmed via imaging, and chronic issues such as COPD and obstructive sleep apnea. The patient?s recent blood work indicates normal renal and liver function, stable hemoglobin, and slight leukopenia. Weight loss was highlighted, and the LDL cholesterol management plan was reviewed. He continues following up with hematology oncology and neurology for ongoing issues related to his past medical events. Health Maintenance - Blood pressure monitoring with a goal under 120/80 mmHg. - LDL cholesterol management target less than 100 mg/dL. - Monitoring leukopenia. - Weight management counseling with significant weight loss discussed. - Discussion regarding diabetes prevention with normal blood glucose levels maintained. - Regular follow-up for pulmonary and neurological symptoms. Social History - No current substance use reported. - Discussed weight management and lifestyle modifications, with noted weight loss. - Family and social interactions highlighted with stress-related familial events. Review of Systems - Neurological: Reports numbness and nerve pain, particularly towards the end of the day. - Respiratory: Denies recent changes in COPD symptoms. - Cardiology: Denies palpitations but recent slightly decreased pulse rate noted. - Musculoskeletal: Reports joint pain, associated with atorvastatin use. Physical Exam - Neurological- Limited movement on the left due to past CVA; able to move the left shoulder; no fine movement in hands. - Musculoskeletal- Able to move the left shoulder but with reduced functionality in the hand. Results - Labs: Normal hemoglobin and hematocrit, slight leukopenia (WBC count 4.7), stable liver and renal function, cholesterol: LDL 106 mg/dL, B12 level at 487, thyroid and electrolytes within normal limits. - Imaging: Prostate enlargement noted on CAT scan. Plan Management of hypertension is maintained using medications such as amlodipine, carvedilol, and losartan. Careful monitoring of neurological health post-CVA is ongoing, with emphasis on pulmonary wellness in light of COPD. Hyperlipidemia management adapts to accommodate atorvastatin-related side effects, with cholesterol levels being rechecked in three months. Eliquis is continued for anticoagulation due to previous thromboembolic events. GERD and BPH are monitored consistently through symptom assessment and imaging as necessary. Patient was informed and verbally consented to the use of an ambient scribe for clinic note documentation during this visit. Discussion Notes I reviewed the patient's current health status and ongoing management strategies, specifically highlighting his history of CVA and its residual effects. We discussed the implications of his cholesterol management, focusing on medication side effects and necessary adjustments. The importance of anticoagulation with Eliquis was reiterated due to his DVT and pulmonary embolism history. I explained the rationale for blood pressure control, discussing medication regimens. Discussions also included monitoring COPD symptoms, inhaler usage, and further neurologic evaluation. Recommendations for exercise and lifestyle adjustments to enhance cholesterol and weight management were provided. Patient Instructions - Continue blood pressure medications as prescribed. - Take Eliquis 5 mg twice a day for anticoagulation. - Monitor cholesterol levels and consider adjusting atorvastatin due to joint pain. - Keep follow-up appointments with neurology, pulmonary, and hematology oncology specialists. - Manage weight through a balanced diet and exercise. - Monitor symptoms, report changes, and adhere to inhaler use if needed. - Follow-up in three months for re-evaluation of cholesterol levels. - If pulse rate drops below 50 bpm and symptoms worsen, contact healthcare provider. Orders: Orders Comprehensive Met. Panel 3 Months E78.00 - Pure hypercholesterolemia, unspecified Lipid Panel 3 Months E78.00 - Pure hypercholesterolemia, unspecified Complete Blood Count Auto Diff 3 Months E78.00 - Pure hypercholesterolemia, unspecified Medications: Discontinued cyanocobalamin (vitamin B-12) Discontinued Reason: Patient Completed Course 1,000 mcg sublingual DAILY 90 ea 4RF umeclidinium-vilanterol 62.5-25 mcg/actuation (Anoro Ellipta) Discontinued Reason: Patient Completed Course 1 inh inhalation DAILY 60 ea 11RF J44.89 - Other specified chronic obstructive pulmonary disease
[2024-10-06 09:57] VITALS: BP 120/72; PULSE 58; O2SAT 97; BMI 26.3
== END 2024-10-06 10:55 | disposition home or self-care (01) ==
LOC: HO.HMCH 09:39
PROVIDERS: PCP Internal Medicine; Visit Provider Internal Medicine
DX: G47.33 Obstructive sleep apnea (adult) (pediatric) (principal); N40.0 Benign prostatic hyperplasia without lower urinary tract symptoms; I63.9 Cerebral infarction, unspecified; I27.82 Chronic pulmonary embolism; I10 Essential (primary) hypertension; E78.00 Pure hypercholesterolemia, unspecified

== ENCOUNTER → 2024-10-06 09:38 | Outpatient (BNVA) | payer MEDICARE, MEDICAID, SELFPAY | PROVIDERS: PCP Internal Medicine; Visit Provider Internal Medicine | DX: G47.33 Obstructive sleep apnea (adult) (pediatric) (principal); N40.0 Benign prostatic hyperplasia without lower urinary tract symptoms; I63.9 Cerebral infarction, unspecified; I10 Essential (primary) hypertension; I27.82 Chronic pulmonary embolism | CPT/HCPCS: 96127; 99212 ==

== ENCOUNTER 2024-10-16 09:54 | Outpatient (REF) | payer MEDICARE, MEDICAID, SELFPAY ==
--- OUTSIDE RECORDS SUMMARY | 2024-10-16 10:36 | XMS_ITS | Continuity of Care Document ---
Author Organization [facility] Address [address] [place] [id number]- Care Team Providers Care Ship'S Pilot Name Role Phone Shruthi Carrera MD Primary Care Physician Encounter [facility] [place] Date(s): 09/11/24 - 10/11/24 [facility] [address] [place] [id number]- Attending Physician: Toy Stanley Admitting Physician: Toy [...] Status: Ordered Repeat number: 1 nystatin topical 987189 u/gm powder 0 Refills, Maintenance, 02/01/23 3:22:00 [...] Plan: Enroll in CVA rehab program [facility] NIHSS: 13 TPA: no IA: no Secondaryprevention: MCT BP as noted below Statin as noted below Follow up: 12/21 1300 stroke, [place] Mobility/ADL Dysfunction/Cognition: PT OT WOOD SCIENCE PROFESSOR Dysphagia: WOOD SCIENCE PROFESSOR Sleep: Monitoring Trazodone 50 mg [...] nutrition supplements Supplement: Ensure Plus High Protein [place]; Number of servings: One; Frequency: Breakfast, Dinner Therapeutic trial tray per WOOD SCIENCE PROFESSOR Therapeutic trial tray per WOOD SCIENCE PROFESSOR Diet Dysphagia; Minced and moist [...] Position: Reference Physician Member Role: PCP Address: [address] [place] [id number]- Telecom: Care Team Related Persons Name: REMIGIO TAPIA Insurance Providers Guarantor name: JOSELO REGINA Health Plan Information #: 1 Payer: MEDICARE PART B OUTPT Member Number: NA Policy Number: NA Group Number: NA Health Plan Information #: 2 Payer: [employer] Member Number: NA Policy Number: NA Group Number: NA
--- OUTSIDE RECORDS SUMMARY | 2024-10-16 10:37 | XMS_ITS | Clinical Summary ---
Author Organization [facility] Address [address] [facility] [address] [place] [address] Phone Care Team Providers Care Code Enforcement Inspector Name Role Phone Shruthi Carrera MD Primary Care Provider Allergies Active Allergy Reactions Criticality Noted Date [...] recently treated with course of abx at [place] for possible PNA (cefazolin -> cefepime -> cipro). Given dysphagia, CT findings, and hx of witnessed aspiration at [place], likely aspiration pneumonitis. On morning of 10/23, he endorsed + cough and mild leukocytosis, with rising temp of max 101F. Since 10/24, afebrile and WBC reassuringly downtrending, MRSA nasal swab negative. To complete abx course, switch to levofloxacin PO for 3 additional days. - Aspiration precautions - CANDY COUNTER CLERK eval - Start levofloxacin PO d/c IV cefepime. Finding of sacral region 10/22/2022 023 Overview (06/20/2023): Last Assessment & Plan: Pt with Stage 2 sacral wound per given recent hospitalization. -Q2 turning of patient -Wound CERTIFIED NOVELL ENGINEER consulted -Air mattress once on floor for comfort/wound care Finding of functional performance and activity 0 10/11/2022 06/20/2023 Overview (06/20/2023): Last Assessment & Plan: - PT consulted for balance, transfer and gait training - OT consulted for ADL/iADL, cognition training - CANDY COUNTER CLERK consulted for swallowing and communication deficits - Consider SW consult for community reintegration - Consider Psychology: Adjustment - Rehab Nursing for medical education - Review at [facility] weekly Resolved Problems Problem Noted Date Diagnosed Date Resolved Date Solitary pulmonary nodule 06/20/2023 06/20/2023 Dysphagia, oropharyngeal phase 11/27/2022 06/20/2023 06/20/2023 Dyspnea 11/27/2022 06/20/2023 06/20/2023 Hyperlipidemia 11/27/2022 06/20/2023 06/20/2023 Other nontraumatic intracerebral hemorrhage 11/27/2022 06/20/2023 06/20/2023 Overview (06/20/2023): Outside Source Comment: Last Assessment & Plan: Enroll in CVA rehab program [facility] NIHSS: 13 TPA: no IA: no Secondary prevention: MCT BP as noted below Statin as noted below Follow up: 12/21 1300 stroke, [place] Mobility/ADL Dysfunction/Cognition: PT OT CANDY COUNTER CLERK Dysphagia: CANDY COUNTER CLERK Sleep: Monitoring Trazodone 50 mg qhs Behavior: Monitoring Neurostimulation: Monitoring Amantadine 100 mg daily dc'ed Mood: Monitoring Pain: Tylenol 650 mg q6h prn Gabapentin 300 mg qhs Diclofenac gel 4 times daily DVT Prophylaxis: Therapeutic anticoagulation Encourage mobility, monitor for signs and symptoms of DVT Bowel/FEN/GI: Timed voiding Titrate to home regimen, change q1-2 days Adult/Pediatric nutrition supplements Supplement: Ensure Plus High Protein [place]; Number of servings: One; Frequency: Breakfast, Dinner Therapeutic trial tray per CANDY COUNTER CLERK Therapeutic trial tray per CANDY COUNTER CLERK Diet Dysphagia; Minced and moist (IDDSI 5); [...] patient's age to complete this topic Insurance [facility] Care Teams Code Enforcement Inspector Relationship Specialty Start Date End Date Shruthi Carrera MD [facility] [address] [place], [place] PCP - General Internal Medicine 06/20/23
--- OUTSIDE RECORDS SUMMARY | 2024-10-16 10:37 | XMS_ITS | Clinical Summary ---
Author Organization [facility] Address [address] [place] [address] Care Team Providers Care Manager Business Name Role Phone Shruthi Carrera MD Primary Care Provider [phone] Allergies No known active allergies Medications Medication [...] daily. 90 tablet 10/11/2022 Active nystatin (MYCOSTATIN) 640222 UNIT/ML suspensionIndicati ons:Hemorrhagic stroke (HCC) Take 5 [...] place to sleep or slept in a long-term (including now)? No 10/02/2022 Sex and Gender [...] Documents on File Type Date Recorded Patient Chief Clerk Expl anatmary Advance Directive-Scan 10/10/2022 Janell Christelle [facility] PROXY 10/10/2022 HH * Full Code (Latest Code Status on File) Date Activated Date Inactivated Comments 09/30/2022 12:19 PM Question Answer Comments Decision Thoroughly Discussed with: Unable to Di scuss Care Teams Manager Business Relationship Specialty Start Date End Date Po, Shruthi Alvares MD [address] [place] [address] [place] [address] PCP - General Internal Medicine 09/30/22
--- NOTE | 2024-10-16 12:51 | MHC.AU.HA3 ---
Hearing Instrument Follow-Up- Binaural Date of Visit: 10/16/24 Right Ear: Bryan, Model, Color, Serial Number: Dru Russello I 50 R lui S#[id number] Solid Waste Collector Repair Warranty: 09/23/2027 Solid Waste Collector Loss and Damage Warranty: 09/23/2027 [facility] Service Plan: 09/17/25 Battery Size: Rechargeable Site Promotion Agent/Slim Tube: 2M Earmold/Dome/CShell/SlimTip:med vented Type of Wax Guard: Cerustop Dispensed By: [facility] Date of Fittin09/18/24 Left Ear: Bryan, Model, Color, Serial Number: Dru Cheneo I 50 R lui S#[id number] Solid Waste Collector Repair Warranty: 09/23/2027 Solid Waste Collector Loss and Damage Warranty: 09/23/2027 [facility] Service Plan: 09/17/25 Battery Size: Rechargeable Site Promotion Agent/Slim Tube: 2M Earmold/Dome/CShell/SlimTip: med vented Type of Wax Guard: Cerustop Dispensed By: [facility] Date of Fittin09/18/24 Follow-Up Summary: Seen for follow up. Accompanied by . Reports right aid sounds louder than left, thinks left needs to be turned up. Reports trouble connecting with phone. Data logging showed less than 1 hour of use. Donell reports he just wasn't wearing them because he mostly uses his headphones to watch videos. Discussed importance of daily use and encouraged to put hearing aids on when getting up in the morning every day. Adjusted left aid and balanced feeling reported. Connected aids with phone and tested streaming. Pt. declined additional follow up at this time. Recommendations: Recommendations: Hearing instrument follow-up or maintenance as needed. Diagnosis Code(s): Primary Diagnosis: H90.3 Bilateral Sensorineural Hearing Loss Signature: Provider: Sam David, [facility] [place]
== END 2024-10-16 09:55 | disposition home or self-care (01) ==
LOC: HO.HAP 09:54
PROVIDERS: Visit Provider Internal Medicine
DX: Z13.89 Encounter for screening for other disorder (principal)

== ENCOUNTER 2024-11-12 10:46 | Outpatient (REF) | payer MEDICARE, MEDICAID, SELFPAY ==
[2024-11-12 11:43] LABS: Hematocrit 44.3 % (42.0-52.0); Hemoglobin 15.5 g/dl (14.0-18.0); Mean Corpuscular Volume 88.6 fL (80.0-98.0); Mean Platelet Volume 9.2 fL (9.4-12.4); Platelet Count 215 X10*3/uL (160-400); Red Cell Distribution Width 12.2 % (11.0-16.0); White Blood Count 5.3 X10*3/uL (4.8-10.8)
--- OUTSIDE RECORDS SUMMARY | 2024-11-12 12:12 | XMS_ITS | Clinical Summary ---
Author Organization [facility] Address [address] [place] [address] Care Team Providers Care Batcher Operator Name Role Phone Shruthi Carrera MD Primary Care Provider [phone] Allergies No known active allergies Medications acetaminophen (TYLENOL) 325 MG tabletIndicatio ns:Hemorrhagic stroke (HCC) Take 2 tablets (650 mg total) by mouth every 8 (eight) hours around the clock. 180 tablet 3 Active amantadine (SYMMETREL) 100 MG capsuleIndicati ons:Hemorrhagic stroke (HCC) Take 1 capsule (100 mg total) by mouth daily. 30 capsule 3 Active amLODIPine (NORVASC) 10 MG tabletIndicatio ns:Hemorrhagic stroke (HCC) Take 1 tablet (10 mg total) by mouth daily. 30 tablet 3 Active atorvastatin (LIPITOR) 40 MG tabletIndicatio ns:Hemorrhagic stroke (HCC) Take 1 tablet (40 mg total) by mouth daily. 30 tablet 3 Active baclofen (LIORESAL) 10 MG tabletIndicatio ns:Hemorrhagic stroke (HCC) Take 1 tablet (10 mg total) by mouth nightly. 30 tablet 3 Active carvedilol (COREG) 25 MG tabletIndicatio ns:Hemorrhagic stroke (HCC) Take 1 tablet (25 mg total) by mouth 2 (two) times a day with meals. 60 tablet 3 Active chlorhexidine (PERIDEX) 0.12 % oral solutionIndicat ions:Hemorrhagi c stroke (HCC) Apply 15 mL to the mouth or throat 2 (two) times a day. 120 mL 3 Active ergocalciferol (VITAMIN D2,DRISDOL) dropsIndication s:Hemorrhagic stroke (HCC) Take 0.5 mL (4,000 Units total) by mouth daily. 9 mL 3 Active Heparin Sodium, Porcine, (heparin, porcine,) 5000 unit/mL injectionIndica tions:Hemorrhag ic stroke (HCC) Inject 1 mL (5,000 Units total) under the skin every 8 (eight) hours around the clock. Please discontinue once patient is mobilizing more consistently. 1 mL 3 Active losartan (COZAAR) 25 MG tabletIndicatio ns:Hemorrhagic stroke (HCC) Take 3 tablets (75 mg total) by mouth daily. 90 tablet 3 Active nystatin (MYCOSTATIN) 488001 UNIT/ML suspensionIndic ations:Hemorrha gic stroke (HCC) Take 5 mL (500,000 Units total) by mouth 4 (four) times a day. 60 mL 3 Active potassium chloride (KLOR-CON) 20 MEQ packetIndicatio ns:Hemorrhagic stroke (HCC) Take 2 packets (40 mEq total) by mouth daily. 60 packet 3 Active psyllium (METAMUCIL) 58.12 % Pack packetIndicatio ns:Hemorrhagic stroke (HCC) Take 1 packet by mouth daily. 30 packet 3 Active Active Problems Problem Noted Date [...] place to sleep or slept in a mcc (including now)? 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
--- OUTSIDE RECORDS SUMMARY | 2024-11-12 12:12 | XMS_ITS | Clinical Summary ---
Author Organization [facility] Address [address] [facility] [address] [place] [address] Phone Care Team Providers Care Injection Specialist Name Role Phone Shruthi Carrera MD Primary Care Provider [phone] Allergies Active Allergy Reactions Criticality Noted Date [...] recently treated with course of abx at [facility] for possible PNA (cefazolin -> cefepime -> cipro). Given dysphagia, CT findings, and hx of witnessed aspiration at [facility], likely aspiration pneumonitis. On morning of 10/23, he endorsed + cough and mild leukocytosis, with rising temp of max 101F. Since 10/24, afebrile and WBC reassuringly downtrending, MRSA nasal swab negative. To complete abx course, switch to levofloxacin PO for 3 additional days. - Aspiration precautions - BIOLOGICAL ENGINEER eval - Start levofloxacin PO d/c IV cefepime. Finding of sacral region 10/22/2022 023 Overview (06/20/2023): Last Assessment & Plan: Pt with Stage 2 sacral wound per given recent hospitalization. -Q2 turning of patient -Wound BLIND SLAT STAPLING MACHINE OPERATOR consulted -Air mattress once on floor for comfort/wound care Finding of functional performance and activity 0 10/11/2022 06/20/2023 Overview (06/20/2023): Last Assessment & Plan: - PT consulted for balance, transfer and gait training - OT consulted for ADL/iADL, cognition training - BIOLOGICAL ENGINEER consulted for swallowing and communication deficits - Consider SW consult for community reintegration - Consider Psychology: Adjustment - Rehab Nursing for medical education - Review at [facility] weekly Resolved Problems Problem Noted Date Diagnosed Date Resolved Date Solitary pulmonary nodule 06/20/2023 06/20/2023 Dysphagia, oropharyngeal phase 11/27/2022 06/20/2023 06/20/2023 Dyspnea 11/27/2022 06/20/2023 06/20/2023 Hyperlipidemia 11/27/2022 06/20/2023 06/20/2023 Other nontraumatic intracerebral hemorrhage 11/27/2022 06/20/2023 06/20/2023 Overview (06/20/2023): Outside Source Comment: Last Assessment & Plan: Enroll in CVA rehab program [facility] NIHSS: 13 TPA: no IA: no Secondary prevention: MCT BP as noted below Statin as noted below Follow up: 12/21 1300 stroke, [place] Mobility/ADL Dysfunction/Cognition: PT OT BIOLOGICAL ENGINEER Dysphagia: BIOLOGICAL ENGINEER Sleep: Monitoring Trazodone 50 mg qhs Behavior: Monitoring Neurostimulation: Monitoring Amantadine 100 mg daily dc'ed Mood: Monitoring Pain: Tylenol 650 mg q6h prn Gabapentin 300 mg qhs Diclofenac gel 4 times daily DVT Prophylaxis: Therapeutic anticoagulation Encourage mobility, monitor for signs and symptoms of DVT Bowel/FEN/GI: Timed voiding Titrate to home regimen, change q1-2 days Adult/Pediatric nutrition supplements Supplement: Ensure Plus High Protein [place]; Number of servings: One; Frequency: Breakfast, Dinner Therapeutic trial tray per BIOLOGICAL ENGINEER Therapeutic trial tray per BIOLOGICAL ENGINEER Diet Dysphagia; Minced and moist (IDDSI 5); [...] Due Date Last Done Comments Pneumococcal Vaccine: 50+ Ye ars (1 of 2 - PCV) 1977 Colorectal Cancer Screening: Annual FOBT 10/19/2007 Colorectal Cancer Screening: Colonoscopy 10/19/2007 Colorectal Cancer Screening: Sigmoidoscopy 10/19/2007 Influenza Vaccine (Season Ended) 2025 Hepatitis B Vaccine Aged Out No longe r eligible based on patient's age to complete this topic Insurance [facility] Healthnet [facility] [employer]net Care Teams Injection Specialist Relationship Specialty Start Date End Date Shruthi Carrera MD [facility] ID [address] [place], [place] PCP - General Internal Medicine 06/20/23
[2024-11-12 12:34] LABS: Prostate Specific Antigen 1.55 ng/mL (<0.05-4.0)
[2024-11-16 00:18] LABS: Testosterone, Total 308 ng/dL (250-1100)
== END 2024-11-12 10:47 | disposition home or self-care (01) ==
LOC: HO.LAB 10:46
PROVIDERS: PCP Internal Medicine; Visit Provider Urology
DX: E29.1 Testicular hypofunction (principal); Z12.5 Encounter for screening for malignant neoplasm of prostate
CPT/HCPCS: 36415; 84153; 84403; 85027

== ENCOUNTER → 2024-11-13 15:02 | Outpatient (REF) | payer MEDICARE, MEDICAID, SELFPAY ==
--- OUTSIDE RECORDS SUMMARY | 2024-11-13 16:58 | XMS_ITS | Clinical Summary ---
Author Organization [facility] Address [address] [facility] [address] [place] [address] Phone Care Team Providers Care Diabetes Nurse Name Role Phone Shruthi Carrera MD Primary Care Provider [phone] Allergies Active Allergy Reactions Criticality Noted Date [...] recently treated with course of abx at [place] for possible PNA (cefazolin -> cefepime -> cipro). Given dysphagia, CT findings, and hx of witnessed aspiration at [place], likely aspiration pneumonitis. On morning of 10/23, he endorsed + cough and mild leukocytosis, with rising temp of max 101F. Since 10/24, afebrile and WBC reassuringly downtrending, MRSA nasal swab negative. To complete abx course, switch to levofloxacin PO for 3 additional days. - Aspiration precautions - LIQUEFIED NATURAL GAS OPERATOR eval - Start levofloxacin PO d/c IV cefepime. Finding of sacral region 10/22/2022 023 Overview (06/20/2023): Last Assessment & Plan: Pt with Stage 2 sacral wound per given recent hospitalization. -Q2 turning of patient -Wound STUDENT RECORDS COORDINATOR consulted -Air mattress once on floor for comfort/wound care Finding of functional performance and activity 0 10/11/2022 06/20/2023 Overview (06/20/2023): Last Assessment & Plan: - PT consulted for balance, transfer and gait training - OT consulted for ADL/iADL, cognition training - LIQUEFIED NATURAL GAS OPERATOR consulted for swallowing and communication deficits - [...] Plan: Enroll in CVA rehab program R [facility] NIHSS: 13 TPA: no IA: no Secondary prevention: MCT BP as noted below Statin as noted below Follow up: 12/21 1300 stroke, [place] Mobility/ADL Dysfunction/Cognition: PT OT LIQUEFIED NATURAL GAS OPERATOR Dysphagia: LIQUEFIED NATURAL GAS OPERATOR Sleep: Monitoring Trazodone 50 mg qhs [...] nutrition supplements Supplement: Ensure Plus High Protein [place]; Number of servings: One; Frequency: Breakfast, Dinner Therapeutic trial tray per LIQUEFIED NATURAL GAS OPERATOR Therapeutic trial tray per LIQUEFIED NATURAL GAS OPERATOR Diet Dysphagia; Minced and moist (IDDSI [...] patient's age to complete this topic Insurance [facility] Healthnet [facility] [employer]net Care Teams Diabetes Nurse Relationship Specialty Start Date End Date Shruthi Carrera MD [facility] [place] [address] [place], [place] PCP - General Internal Medicine 06/20/23
--- OUTSIDE RECORDS SUMMARY | 2024-11-13 16:58 | XMS_ITS | Clinical Summary ---
Author Organization [facility] Address [address] [place] [address] Care Team Providers Care Parcel Carrier Name Role Phone Shruthi Carrera MD Primary Care Provider [phone] Allergies No known active allergies Medications acetaminophen [...] daily. 90 tablet 3 Active nystatin (MYCOSTATIN) 240769 UNIT/ML suspensionIndic ations:Hemorrha gic stroke (HCC) Take [...] place to sleep or slept in a correction (including now)? No 10/02/2022 Sex and Gender [...] this topic Insurance MEDICAID OUT OF STATE [facility] [place] [place] Advance Directives Documents on File Type Date Recorded Patient National Service Officer Expl anation Advance Directive-Scan 10/10/2022 Janell Christelle [facility] 10/10/2022 HH * Full Code (Latest Code Status on File) Date Activated Date Inactivated Comments 09/30/2022 12:19 PM Question Answer Comments Decision Thoroughly Discussed with: Unable to Di scuss Care Teams Parcel Carrier Relationship Specialty Start Date End Date Shruthi Carrera MD [address] [place] [address] [place] [address] PCP - General Internal Medicine 09/30/22
== END ==
LOC: HO.SL 15:02
PROVIDERS: PCP Internal Medicine; Visit Provider Hospitalist
DX: G47.33 Obstructive sleep apnea (adult) (pediatric) (principal); J41.0 Simple chronic bronchitis
CPT/HCPCS: 95806

== ENCOUNTER → 2024-11-13 15:16 | Outpatient (BNV) | payer MEDICARE, MEDICAID, SELFPAY | PROVIDERS: PCP Internal Medicine; Visit Provider Internal Medicine | DX: G47.33 Obstructive sleep apnea (adult) (pediatric) (principal) | CPT/HCPCS: 95806 ==

== ENCOUNTER 2024-11-19 11:15 | Outpatient (AMB) | payer MEDICARE, MEDICAID, SELFPAY ==
--- NOTE | 2024-11-19 11:16 | A.OFFVIS_ITS ---
Intake Visit Reasons: Three-month follow-up lab Intake Note: Patient is present for 3M/LABS Urology Medication:TESTOSTERONE Antibiotic Allergy:NONE Blood Thinner:APIXABAN Floor Covering Printer Assistant Required: No Allergies lisinopril Allergy (Unknown, Verified 11/19/24 11:18) Unknown HPI Comments Details: Donell is a pleasant male. He is a patient of Dr. Carrera. He is seen for the following urologic conditions - nephrolithiasis - angiomyolipoma - erectile dysfunction Telemedicine Evaluation 15 min Consultation xTurion Jayme Video Six-month follow-up Has been on testosterone gel Discussed application Would like to continue Three-month follow-up lab work PSA 09/06 1.1, 02/05 0.4. 06/08 T 246 borderline low free 40, 11/[address] scan with enlarged prostate, confirms small angiomyolipoma right side Accompanied by his Stroke 2022 with movement deficit on left side Minimal issues with urination Erectile dysfunction Progressive - Able to obtain erection Erection not of adequate rigidity - Unable to maintain Does have associated urinary urge Failed trial daily Cialis secondary to headache Nephrolithiasis Longstanding Minimal symptoms Imaging - 08/06 renal ultrasound - bilateral renal cysts up to 3 cm, right-sided angiomyolipoma 1.5 cm, bilateral small renal stones 5 mm PFSH Medical History (Updated 10/06/24 @ 10:26 by Shruthi Carrera MD) Obesity (BMI 30-39.9) Pulmonary embolism COPD (chronic obstructive pulmonary disease) DVT (deep venous thrombosis) Hypertension Urinary incontinence Renal cyst, left GERD (gastroesophageal reflux disease) Aortic dilatation Vitamin D deficiency Hypercholesterolemia Vitamin B12 deficiency Pulmonary nodule Elevated blood pressure reading Impaired glucose tolerance Surgical History History of inguinal hernia repair History of tonsillectomy Family History Father Bone cancer Mother Acute CVA (cerebrovascular accident) Social History Housing: House Alcohol intake: never Patient Tobacco Use Status: Never used Tobacco Tobacco use type: Cigarette e-Cigarette/Vaping Use: Never Used Second Hand Smoke Exposure: No service: Yes Current occupational status: employed and disabled Cognitive needs: No Hearing needs: No Vision needs: Yes Review of Systems Const All systems reviewed & are unremarkable except as noted in HPI and below Reports no additional complaints Resp Reports no additional complaints GI Reports no additional complaints Reports as per HPI Musc Reports no additional complaints Physical Exam Telemedicine evaluation Appropriate responses Regular breathing rate and rhythm HEENT Head: Yes normal to inspection Ears: hearing grossly normal bilaterally Eyes General: appearance normal, both eyes and all related structures Neck Neck: Yes normal visual inspection Chest Chest palpation & inspection: normal inspection of the chest Resp Effort & Inspection: normal respiratory effort and able to speak in complete sentences Telehealth Telehealth Telehealth Platform: xTurion Location of provider rendering services: practice address Location of patient: address on file Patient Identification confirmed using: Name, : Yes Telehealth method: voice only Patient verbally consented to treatment: Yes Patient verbally consented to billing insurance company: Yes Patient informed of any privacy concerns related to visit: Yes Minutes spent on Phone/Video with Pt.: 15 Assessment & Plan Assessment & Plan (1) Erectile dysfunction: Code(s): N52.9 - Male erectile dysfunction, unspecified Category: Medical (2) Renal calculi: Comment: 07/2021 Code(s): N20.0 - Calculus of kidney Category: Medical (3) Hypogonadism in male: Code(s): E29.1 - Testicular hypofunction Category: Medical Plan Testosterone increased to 2 packs daily Sildenafil provided Three-month follow-up repeat labs Orders: Orders Testosterone, Free/Total 3 Months E29.1 - Testicular hypofunction Medications: New sildenafil administer 60 minutes before intended activity [id number] [facility] [id number] Member [id number] 100 mg PO ONCE PRN 30 tabs 1RF sexual activity 30 days E29.1 - Testicular hypofunction Changed From testosterone apply 1 packet daily - massaged into skin till dry, alternate shoulders 50 mg transdermal DAILY 30 days 150 grams 3RF E29.1 - Testicular hypofunction To testosterone apply 2 packet daily - massaged into skin till dry, both shoulders, abdomen, inner thigh 100 mg transdermal DAILY 300 grams 3RF 30 days E29.1 - Testicular hypofunction Patient Instructions: This note is constructed using voice recognition software. While every effort has been made to ensure accuracy sheep herder errors may have been included. Imaging studies, laboratory and physical exam results were discussed and reviewed in detail. No major barriers to patient understanding were identified. An opportunity to ask questions regarding the treatment plan was provided. All questions were answered. The patient expressed understanding and agreement with the above treatment plan. The patient is aware they should contact our office by phone for worsening of their current condition or the appearance of new urologic symptoms. Compliance is encouraged with any medications and followup testing that is ordered. It is a privilege to participate in the urologic care of your patient. If you have any questions or concerns regarding treatment for the above conditions, or other urologic issues, please do not hesitate to contact me. The office telephone contact is [phone]. Sincerely, Dr Luis Carlos Beauchamp MD, [facility] - Urology Compassionate Specialist Care for the Genitourinary System Coding Level of Care Code Tele Est Pt Level 3 (08989) Complex EM visit Add On G2211 Diagnoses Erectile dysfunction N52.9 Renal calculi N20.0 Hypogonadism in male E29.1
--- OUTSIDE RECORDS SUMMARY | 2024-11-19 12:43 | XMS_ITS | Continuity of Care Document ---
Author Organization [facility] Address [address] [place] [address]- Care Team Providers Care Cafeteria Director Name Role Phone Shruthi Carrera MD Primary Care Physician [phone] [id number] Date(s): 11/10/24 - 11/17/24 [facility] [address] [place] [address]- Attending Physician: Darren Adrian MD Referring Physician: [...] Status: Ordered Repeat number: 1 nystatin topical 999098 u/gm powder 0 Refills, Maintenance, 02/01/23 3:22:00 [...] in CVA rehab program R [facility] NIHSS: 13 TPA: no IA: no Secondaryprevention: MCT BP as noted below Statin as noted below Follow up: 12/21 1300 stroke, [place] Mobility/ADL Dysfunction/Cognition: 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 Dysphagia: CABLE WORKER HELPER Sleep: Monitoring Trazodone 50 mg qhs Behavior: Monitoring Neurostimulation: Monitoring Amantadine 100 mg daily dc'ed Mood: Monitoring Pain: Tylenol 650 mg q6h prn Gabapentin 300 mg qhs Diclofenac gel 4 times daily DVT Prophylaxis: Therapeutic anticoagulation Encourage mobility, monitor for signsand symptoms of DVT Bowel/FEN/GI: Timed voiding Titrate to home regimen, change q1-2 days Adult/Pediatric nutrition supplements Supplement: Ensure Plus High Protein [place]; Number of servings: One; Frequency: Breakfast, Dinner Therapeutic trial tray per CABLE WORKER HELPER Therapeutic trial tray per CABLE WORKER HELPER Diet Dysphagia; Minced and moist (IDDSI 5); [...] mg, ED 10/31 #HTN (144-154)/(85-90) 154/90 (11/26 2618) Amlodipine 10 mg daily Losartan 75 mg [...] oldest [Reference Range]: 1 Height 188 cm (11/10/24 11:09 AM) Weight 95.7 kg (11/10/24 11:09 AM) Oxygen Saturation [94-100 %] 97 % (11/10/24 11:09 AM) Pulse Rate [55-90 bpm] 56 bpm (11/10/24 11:09 AM) Body Mass Index [18.5-24.99 kg/m2] 27.08 kg/m2 *H* (11/10/24 11:09 AM) Blood Pressure [90-138/55-84 mm Hg] 126/ 81mm Hg (11/10/24 11:09 AM) Respiratory Rate [16-30 br/min] 16 br/mi n (11/10/24 11:09 AM) Mode of Delivery (Oxygen) Room air (11/10/24 11:09 AM) Blood pressure sites Arm, right (11/10/24 11:09 AM) Weight Obtained Via Bed scale (11/10/24 11:09 AM) Social History Social History Type Response Smoking Status Never (less than 100 in lifetime) entered on: 02/01/23 Sex Sex Representation Male (finding) Patient Care team information Care Team Personnel Name: Shruthi Carrera MD Position: Reference Physician Member Role: PCP Address: [address] [place] [address] Telecom: Care Team Related Persons Name: REMIGIO TAPIA Insurance Providers Guarantor name: JOSELO TAPIA Health Plan Information #: 2 Payer: [employer] Member Number: [id number] Policy Number: NA Group Number: NA Health Plan Information #: 1 Payer: MEDICARE PART B OUTPT Member Number: [id number] Policy Number: NA Group Number: NA
--- OUTSIDE RECORDS SUMMARY | 2024-11-19 12:43 | XMS_ITS | Clinical Summary ---
Author Organization [facility] Address [address] [facility] [address] [place] [address] Phone Care Team Providers Care Marker Maker Name Role Phone Shruthi Carrera MD Primary Care Provider [phone] Allergies Active Allergy Reactions Criticality Noted Date [...] recently treated with course of abx at [place] for possible PNA (cefazolin -> cefepime -> cipro). Given dysphagia, CT findings, and hx of witnessed aspiration at [place], likely aspiration pneumonitis. On morning of 10/23, he endorsed + cough and mild leukocytosis, with rising temp of max 101F. Since 10/24, afebrile and WBC reassuringly downtrending, MRSA nasal swab negative. To complete abx course, switch to levofloxacin PO for 3 additional days. - Aspiration precautions - STUDY ABROAD COORDINATOR eval - Start levofloxacin PO d/c IV cefepime. Finding of sacral region 10/22/2022 023 Overview (06/20/2023): Last Assessment & Plan: Pt with Stage 2 sacral wound per given recent hospitalization. -Q2 turning of patient -Wound SOCIAL SERVICES ASSISTANT consulted -Air mattress once on floor for comfort/wound care Finding of functional performance and activity 0 10/11/2022 06/20/2023 Overview (06/20/2023): Last Assessment & Plan: - PT consulted for balance, transfer and gait training - OT consulted for ADL/iADL, cognition training - STUDY ABROAD COORDINATOR consulted for swallowing and communication deficits - Consider SW consult for community reintegration - Consider Psychology: Adjustment - Rehab Nursing for medical education - Review at [facility] weekly Resolved Problems Problem Noted Date Diagnosed Date Resolved Date Solitary pulmonary nodule 06/20/2023 06/20/2023 Dysphagia, oropharyngeal phase 11/27/2022 06/20/2023 06/20/2023 Dyspnea 11/27/2022 06/20/2023 06/20/2023 Hyperlipidemia 11/27/2022 06/20/2023 06/20/2023 Other nontraumatic intracerebral hemorrhage 11/27/2022 06/20/2023 06/20/2023 Overview (06/20/2023): Outside Source Comment: Last Assessment & Plan: Enroll in CVA rehab program R 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 Dysphagia: STUDY ABROAD COORDINATOR Sleep: Monitoring Trazodone 50 mg qhs [...] nutrition supplements Supplement: Ensure Plus High Protein [place]; Number of servings: One; Frequency: Breakfast, Dinner Therapeutic trial tray per STUDY ABROAD COORDINATOR Therapeutic trial tray per STUDY ABROAD COORDINATOR Diet Dysphagia; Minced and moist (IDDSI [...] patient's age to complete this topic Insurance [facility] Healthnet [facility] Healthnet Care Teams Marker Maker Relationship Specialty Start Date End Date Shruthi Carrera MD [facility] [address] [place], [place] PCP - General Internal Medicine 06/20/23
--- OUTSIDE RECORDS SUMMARY | 2024-11-19 12:43 | XMS_ITS | Clinical Summary ---
Author Organization [facility] Address [address] [place] [id number] Care Team Providers Care Rn Radiation Oncology Name Role Phone Shruthi Carrera MD Primary Care Provider [phone] Allergies No known active allergies Medications acetaminophen [...] daily. 90 tablet 3 Active nystatin (MYCOSTATIN) 152334 UNIT/ML suspensionIndic ations:Hemorrha gic stroke (HCC) Take [...] place to sleep or slept in a retirement (including now)? No 10/02/2022 Sex and Gender [...] Zoster (Shingles) Vaccine (1 of 2) 2008 COVID-19 Vaccine (2023-2 5 season) 2024 Influenza Vaccine 02/13/2025 RSV Vaccine 60 years and old er and Patients (1 - 1-dose 75+ series) 2033 Hepatitis B Vaccines Aged Out No long er eligible based on patient's age to complete this topic Insurance MEDICAID OUT OF STATE [facility] [place] Advance Directives Documents on File Type Date Recorded Patient Door Tender Expl anation Advance Directive-Scan 10/10/2022 Janell Christelle [facility] PROX[facility] 10/10/2022 HH * Full Code (Latest Code Status on File) Date Activated Date Inactivated Comments 09/30/2022 12:19 PM Question Answer Comments Decision Thoroughly Discussed with: Unable to Di scuss Care Teams Rn Radiation Oncology Relationship Specialty Start Date End Date Shruthi Carrera MD [address] [place] [address] [place] [address] PCP - General Internal Medicine 09/30/22
== END 2024-11-19 12:27 | disposition home or self-care (01) ==
LOC: HO.HUSH 11:15
PROVIDERS: PCP Internal Medicine; Visit Provider Urology
DX: N52.9 Male erectile dysfunction, unspecified (principal); N20.0 Calculus of kidney; E29.1 Testicular hypofunction
CPT/HCPCS: 99213; G2211

== ENCOUNTER → 2024-11-19 11:15 | Outpatient (BNVA) | payer MEDICARE, MEDICAID, SELFPAY | PROVIDERS: PCP Internal Medicine; Visit Provider Urology | DX: Z13.89 Encounter for screening for other disorder (principal) ==

== ENCOUNTER → 2024-12-31 19:30 | Outpatient (BNV) | payer MEDICARE, MEDICAID, SELFPAY | PROVIDERS: PCP Internal Medicine; Visit Provider Internal Medicine | DX: G47.33 Obstructive sleep apnea (adult) (pediatric) (principal) | CPT/HCPCS: 95811 ==

== ENCOUNTER → 2024-12-31 19:30 | Outpatient (REF) | payer MEDICARE, MEDICAID, SELFPAY | LOC: HO.SL 19:30 | PROVIDERS: PCP Internal Medicine; Visit Provider Hospitalist | DX: G47.33 Obstructive sleep apnea (adult) (pediatric) (principal); Z79.899 Other long term (current) drug therapy | CPT/HCPCS: 95811 ==

== ENCOUNTER 2025-06-16 11:18 | Outpatient (AMB) | payer MEDICARE, MEDICAID, SELFPAY ==
[2025-06-16 11:33] VITALS: BP 128/68; PULSE 64; O2SAT 95; BMI 27.7
--- NOTE | 2025-06-16 11:33 | A.OFFPC_ITS ---
Vital Signs 06/16/25 11:33 Height 6 ft 2 in Weight 215 lb 13.321 oz BMI 27.7 BP 128/68 Blood Pressure Location Rt brachial Position Sitting Pulse 64 Pulse Source Pulse Oximeter Pulse Oximetry (%) 95 Oxygen Delivery Method Room Air Intake Visit Reasons: cholesterol, CVA Allergies lisinopril Allergy (Unknown, Verified 06/16/25 11:33) Unknown Medication List - Last Reconciled 06/16/25 by Shruthi Carrera MD [UNDER PADS disposable As directed] [adult briefs w/ tabs (Extra Large) As directed] albuterol sulfate 90 mcg/actuation 2 inhalations inhalation Q6H PRN 30 days alclometasone 0.05% 1 appl topical BID PRN amlodipine 10 mg PO DAILY [APAP Full face mask K 20 medium 19/13 cm H20 heated humidifation As directed] apixaban (Eliquis) 5 mg PO BID [arm trough for wheelchair As directed] atorvastatin 40 mg PO DAILY baclofen 10 mg PO BID PRN 90 days carvedilol 12.5 mg PO BID cholecalciferol (vitamin D3) 125 mcg PO DAILY clotrimazole 1% 1 appl topical BID 4 weeks [commode w/ adjustment handle sides (for extra wide seat) As directed] Cozaar (losartan) 100 mg PO DAILY NS [CUSTOM AFO for L foot drop As directed] diclofenac sodium 1% 4 grams topical QID docusate sodium 100 mg PO BID PRN gabapentin 600 mg (2 x 300 mg) PO DAILY 90 days [GAIT BELT As directed] [GLOVES as needed] [Hospital bed trapeze As directedshower chair w/ back and hospital bed trapeze] metronidazole 0.75% 1 appl topical BID [oxygen 2l NC while sleeping As directed] [reuseable pads As directed] [Shower chair shower chair w/ back and hospital bed trapeze] sildenafil 100 mg PO ONCE PRN 30 days testosterone 100 mg transdermal DAILY 30 days [transfer CHAIR regular chair will not fit through doors] walker As directed front wheels with left side platform [wheelchair cushion As directed] [WIPES As directed] Tobacco use date assessed: 10/06/24 Fall risk assessment: No Falls in past year Last assessed Fall Risk: 06/16/25 Dental Screening Dental Screen Date: 10/06/24 HPI HPI Comments History of Present Illness Details History of Present Illness The patient is a 64 year old individual presenting for a follow-up visit for management of chronic conditions. The patient has a history of a cerebrovascular accident in September 2022, which resulted in left-sided weakness, left upper extremity spastic hemiplegia, a left foot drop, and ongoing left-sided facial numbness. The patient has also been diagnosed with small brain aneurysms and is being followed by a neurovascular specialist. The patient receives physical and occupational therapy, though the frequency has decreased from 3-4 times per week to 1-2 times per week. There is a history of a pulmonary embolism and a left leg deep vein thrombosis in October 2022, for which the patient takes Eliquis 5 mg twice daily. A sleep study in December 2024 revealed moderately severe obstructive sleep apnea with an apnea-hypopnea index of 25 events per hour and oxygen desaturation to 88%. The study recommended bilevel positive airway pressure at 19/13 cm H2O with a full face mask, heated humidification, and 2 L of oxygen via nasal cannula, but the patient never received the machine. The patient reports occasionally wa jono up at night gasping for air. The patient's medical history is also significant for hypertension, hypercholesterolemia, impaired glucose tolerance, GERD, lumbar degenerative disc disease, BPH, and COPD. The last LDL cholesterol level was 106 mg/dL in October. The patient follows with urology for BPH and low testosterone, with a testosterone level of 308 ng/dL in October. A 10-pound weight gain has been noted, with the current weight at 215 pounds, up from 205 pounds in September. Health Maintenance - Cardiovascular risk reduction: The LDL cholesterol goal is less than 70 mg/dL; the last reading was 106 mg/dL. - Weight management: The patient was cou nseled on weight management due to a recent 10-pound weight gain. - Laboratory monitoring: A request for f elvislow-up lab work, including a fasting lipid panel, will be placed. - Infection prevention: Advised to be ca utious in gatherings due to circulating COVID-19, influenza, and RSV. Social History - Functional Status: The patient has dec onditioning and is limited in movement due to left-sided weakness and a left foot drop post-stroke. - Exercise: Attends physical and occupat ional therapy to manage post-stroke deficits. - Nutrition/Weight: The patient has expe rienced a 10-pound weight gain recently. Results - Labs (November 12): Blood count and elect rolytes were normal. - Labs (November 12): Liver function was go od. - Labs (November 12): LDL cholesterol was 1 06 mg/dL. - Labs (October): Prostate-specific antige n was noted to be good. - Labs (October): Testosterone level was 3 08 ng/dL. - Sleep Study (December 2024): Showed modera tely severe obstructive sleep apnea with nocturnal hypoxemia. - Sleep Study (December 2024): Apnea-hypopne a index (AHI) was 25 events per hour. - Sleep Study (December 2024): Oxygen satura tion dropped to 88%. - Sleep Study (December 2024): Revealed francisco odic limb movements. - Sleep Study (December 2024): CPAP titratio n recommended bilevel pressure of 19/13 cm H2O, use of a full face mask (F20, medium), heated humidification, and 2L of O2 via nasal cannula. [facility] Medical History (Updated 06/16/25 @ 12:00 by Shruthi Carrera MD) Obesity (BMI 30-39.9) Pulmonary embolism COPD (chronic obstructive pulmonary disease) DVT (deep venous thrombosis) Hypertension Urinary incontinence Renal cyst, left GERD (gastroesophageal reflux disease) Aortic dilatation Vitamin D deficiency Hypercholesterolemia Vitamin B12 deficiency Pulmonary nodule Elevated blood pressure reading Impaired glucose tolerance Surgical History History of inguinal hernia repair History of tonsillectomy Family History Father Bone cancer Mother Acute CVA (cerebrovascular accident) Social History Housing: House Alcohol intake: never Patient Tobacco Use Status: Never used Tobacco Tobacco use type: Cigarette e-Cigarette/Vaping Use: Never Used Second Hand Smoke Exposure: No service: Yes Current occupational status: employed and disabled Cognitive needs: No Hearing needs: No Vision needs: Yes Questionnaire PHQ-9 Over the last 2 weeks, how often have you been bothered by any of the following problems? 1. Little interest or pleasure in doing things: several days 2. Feeling down, depressed, or hopeless: not at all 3. Trouble falling or staying asleep, or sleeping too much: more than half the days 4. Feeling tired or having little energy: more than half the days 5. Poor appetite or overeating: not at all 6. Feeling bad about yourself - or that you are a failure or have let yourself or your family down: several days 7. Trouble concentrating on things, such as reading the newspaper or watching television: several days 8. Moving or speaking so slowly that other people could have noticed. Or the opposite - being so fidgety or restless that you have been moving around a lot more than usual: not at all 9. Thoughts that you would be better off or of hurting yourself in some way: not at all Total score: 7 Source: Developed by Drs. Sanchez Rivera, Britt Burr, Mike Aponte and colleagues, with an educational tremayne from [employer] (powering [employer]). Thrive Questionnaire Date Thrive assessed: 06/09/25 I am a: Patient What is your living situation today?: I have a steady place to live Within the past 12 months, did the food you bought not last and you didn't have the money to get more?: I choose not to answer this question Within the past 12 months, did you worry whether your food would run out before you got money to buy more?: Never true Do you have trouble paying for medicines?: No Do you have trouble getting transportation to medical appointments?: No Do you have trouble paying your heating and electricity bill?: No Do you have trouble taking care of your child, family member or friend?: No Do you have trouble with day-to-day activities such as bathing, preparing meals, shopping, managing finances, etc.?: Yes Are you currently unemployed and looking for a job?: Yes Are you interested in more education?: No Please select the resources that you would like help with: None Currently or been in a relationship where the following occur: No concerns reported THRIVE Score: 0 AUDIT C Alcohol Use Questionnaire (AUDIT-C) 1. How often do you have a drink containing alcohol?: Never 3. How often do you have six or more drinks on one occasion?: Never Total Score: 0 BRISEIDA-7 AMB Questionnaire BRISEIDA-7 Date BRISEIDA - 7 assessed: 10/06/24 Feeling nervous, anxious, or on edge: 0 = Not at all Not being able to stop or control worryin = Nearly every day Worrying too much about different things: 3 = Nearly every day Trouble relaxin = Nearly every day Being so restless that it is hard to sit still: 1 = Several days Becoming easily annoyed or irritable: 0 = Not at all Feeling afraid as if something awful might happen: 1 = Several days Total BRISEIDA-7 score (0-4 normal; 5-9 mild; 10-14 moderate; 15-21 severe): 11 Source: Developed by Drs. Sanchez Rivera, Britt Burr, Mike Aponte and colleagues, with an educational tremayne from [employer] (powering [employer]). Review of Systems Narrative Review of Systems - Constitutional: Reports a 10-pound weight gain and deconditioning. - Neurological: Reports persistent numbness on the left side of the face and in the left pinky finger. - Respiratory: Reports snoring that has recently worsened and waking up at night gasping for air. - Musculoskeletal: Reports left-sided weakness and a left foot drop. Physical exam (Primary Care) Vital Signs: Last Vital Signs Pulse 64 06/16/25 11:33 BP 128/68 06/16/25 11:33 Pulse Ox 95 06/16/25 11:33 Oxygen Delivery Method Room Air 06/16/25 11:33 BMI result Body Mass Index 27.7 Tobacco/Smoking Status: Tobacco use Status Tobacco use date assessed 10/06/24 06/16/25 11:41 Patient Tobacco Use Status Never used Tobacco 06/16/25 11:41 Tobacco use type Cigarette 06/16/25 11:41 e-Cigarette/Vaping Use Never Used 06/16/25 11:41 PHQ-9: PHQ-9 Score PHQ-9: Total score 7 06/16/25 12:03 Thrive Assessment: Date of Thrive Assessment Date Thrive assessed 06/09/25 06/16/25 11:41 Currently or been in a relationship where the following occur: No concerns reported Narrative Physical Exam - Vitals: Weight is 215 pounds. - Neurological: Left foot drop is noted. - Cardiovascular: Heart auscultated with normal findings. - Respiratory: Lungs auscultated with normal findings. Const General: alert; No acute distress Eyes Conjunctivae: conjunctivae normal Resp Auscultation: clear to auscultation bilaterally Cardio Rate: regular rate Rhythm: regular rhythm GI Inspection: Yes normal to inspection Extrem Other: Bilateral lower extremity noted to have 1+ edema with left side lower extremity, upper extremity 1/5 Coding Level of Care Code Est Pt Level 4 (70324) Complex visit Add On G2211 Diagnoses Hypertension I10 Hypercholesterolemia E78.00 Impaired glucose tolerance R73.02 GERD (gastroesophageal reflux disease) K21.9 Cerebrovascular accident (CVA), unspecified mechanism I63.9 CVA mechanism: unspecified Foot drop, left M21.372 BRIGIDA (obstructive sleep apnea) G47.33 Assessment & Plan Assessment & Plan (1) Hypertension: Code(s): I10 - Essential (primary) hypertension Category: Medical Plan: Continue with blood pressure medication. Decrease salt intake and exercise patient on amlodipine 10 mg once a day carvedilol 12.5 mg twice a day Cozaar 100 mg once a day (2) Hypercholesterolemia: Code(s): E78.00 - Pure hypercholesterolemia, unspecified Category: Medical Plan: Avoid fried foods, chicken skin, eggs, butter margarine, pastries and meat. Be it pork or beef they have a lot of cholesterol LDL goal of less than 70 and triglyceride of less than 150 on atorvastatin 40 mg once a day (3) Impaired glucose tolerance: Code(s): R73.02 - Impaired glucose tolerance (oral) Category: Medical Plan: Decrease the amount of carbohydrate intake, pasta, bread, rice and potatoes are all sugar and that is aside from all the sweet stuff, remember that fruits are good but they are Sweet also. (4) GERD (gastroesophageal reflux disease): Code(s): K21.9 - Gastro-esophageal reflux disease without esophagitis Category: Medical Plan: Avoid the foods that causes that usually spicy foods, tomato products, juices, coffee, soda and foods that your sensitive to. After eating do not lie down, allow 3-4 hours before in lie down. And keep the head of bed above 30 degrees to avoid the acid from going up. (5) CVA (cerebral vascular accident): Comment: September 2022 with left-sided weakness. Code(s): I63.9 - Cerebral infarction, unspecified Category: Medical Qualifiers: CVA mechanism: unspecified Qualified Code(s): I63.9 - Cerebral infarction, unspecified Plan: Control the cholesterol, weight, blood pressure, diabetes patient on Eliquis 5 mg twice a day (6) Foot drop, left: Comment: CVA 09/2022 Code(s): M21.372 - Foot drop, left foot Category: Medical Plan: Continuing with physical therapy (7) BRIGIDA (obstructive sleep apnea): Comment: 2024 Code(s): G47.33 - Obstructive sleep apnea (adult) (pediatric) Category: Medical Plan: Discussed about continuing with the CPAP more than 4 hours a night to benefit him. Plan Plan Patient was informed and verbally consented to the use of an ambient scribe for clinic note documentation during this visit. 1. Moderately Severe Obstructive Sleep Apnea The patient's sleep study from December 2024 confirmed moderately severe obstructive sleep apnea with an AHI of 25 and oxygen desaturation to 88%. Despite recommendations for BiPAP at 19/13 cm H2O with 2L O2, the patient has not yet received the machine. The significant risks of untreated sleep apnea, including cardiac complications such as atrial fibrillation, were discussed. A plan is in place to contact the equipment company to facilitate the setup of the BiPAP machine. The patient was educated that the high pressure is necessary to keep the airway open by displacing the tongue and was encouraged to use the device for more than 4 hours per night for benefit. 2. Hypercholesterolemia The patient's LDL cholesterol remains elevated at 106 mg/dL, which is above the goal of less than 70 mg/dL given the history of stroke. The patient will continue the current regimen of atorvastatin 40 mg daily. Repeat fasting labs have been ordered to re-evaluate lipid levels. 3. Hypertension The patient will continue the current antihypertensive regimen of amlodipine 10 mg, carvedilol 12.5 mg twice a day, and losartan 100 mg once a day. The importance of strict blood pressure control was emphasized, particularly due to the presence of cerebral aneurysms, to mitigate the risk of rupture. 4. History Of Cerebrovascular Accident The patient continues to experience post-stroke sequelae, including left-sided weakness, facial numbness, and left foot drop. A referral will be placed for physical and occupational therapy at [facility] as requested. The patient was educated that the brain damage from the stroke is permanent, and the goal of ongoing therapy is to utilize other muscles and neural pathways to improve function. 5. Cerebral Aneurysm, Unruptured The patient was found to have small brain aneurysms after referral to a neurovascular specialist. The patient was strongly advised to maintain the follow-up appointment with the neurovascular specialist and to ensure their clinical notes are forwarded for review. 6. Weight Management The patient has gained 10 pounds since September, with a current weight of 215 pounds. The patient was counseled on the importance of weight management, acknowledging the difficulty given mobility limitations. Discussion Notes I reviewed the results of the sleep study, which confirmed a diagnosis of moderately severe obstructive sleep apnea with an AHI of 25 and oxygen saturation dropping to 88%. I emphasized the severe health risks associated with this condition, particularly the strain it places on the heart, which can increase the risk of atrial fibrillation. I explained that although the recommended BiPAP pressure is high, it is necessary to overcome the airway obstruction caused by the tongue falling back during sleep, and I informed the patient my office will facilitate the equipment setup. We discussed the permanent nature of the brain damage from the patient's prior stroke, explaining that neurological deficits like numbness may not resolve. I stressed the importance of continued physical therapy to help other parts of the brain and muscles compensate for the damage, and a new referral was placed per the patient's request. We also reviewed the finding of small brain aneurysms and the critical need for strict blood pressure control to prevent rupture. I urged the patient to follow up with the neurovascular specialist and to have the specialist's notes forwarded to my office. Finally, we addressed the elevated cholesterol, the goal LDL of less than 70, the recent 10-pound weight gain, and I ordered repeat lab work. Patient Instructions - A medical equipment company will contact you to set up a sleep machine (BiPAP). - It is very important that you use this machine for at least 4 hours every night to help your breathing and protect your heart. - We have placed a referral for you to begin physical and occupational therapy at [facility]. - Continue taking all your medications as prescribed, including those for blood pressure, cholesterol, and blood thinning. - Please complete the follow-up blood work that has been ordered to check your cholesterol levels. - Make sure to follow up with your neurovascular specialist about your brain aneurysms and ask them to send their report to our office. - Focus on diet and exercise as you are able to help manage your weight, as you have gained 10 pounds. - Be cautious in crowds and consider wearing a mask to avoid getting sick from COVID, the flu, or RSV. Orders: Orders Hemoglobin A1c Today R73.02 - Impaired glucose tolerance (oral) Prostate Specific Antigen Scr Today R73.02 - Impaired glucose tolerance (oral) IRON PROFILE Today R73.02 - Impaired glucose tolerance (oral) Vitamin D 25-OH Total Today R73.02 - Impaired glucose tolerance (oral) PT Evaluation and Treatment Today I63.9 - Cerebral infarction, unspecified OT Evaluation and Treatment Today I63.9 - Cerebral infarction, unspecified Free T4 (Free Thyroxine) Today R73.02 - Impaired glucose tolerance (oral) Thyroid Stimulating Hormone Today R73.02 - Impaired glucose tolerance (oral) Vitamin B12 and Folate Today R73.02 - Impaired glucose tolerance (oral) Magnesium Today R73.02 - Impaired glucose tolerance (oral) Ferritin Today R73.02 - Impaired glucose tolerance (oral) Reticulocyte Count Today R73.02 - Impaired glucose tolerance (oral) Medications: New [APAP Full face mask K 20 medium 19/13 cm H20 heated humidifation] As directed 1 ea 0RF G47.33 - Obstructive sleep apnea (adult) (pediatric) [oxygen 2l NC while sleeping] As directed 1 ea 0RF G47.33 - Obstructive sleep apnea (adult) (pediatric)
== END 2025-06-16 12:38 | disposition home or self-care (01) ==
LOC: HO.HMCH 11:19
PROVIDERS: PCP Internal Medicine; Visit Provider Internal Medicine
DX: I10 Essential (primary) hypertension (principal); I63.9 Cerebral infarction, unspecified; E78.00 Pure hypercholesterolemia, unspecified; R73.02 Impaired glucose tolerance (oral); K21.9 Gastro-esophageal reflux disease without esophagitis; M21.372 Foot drop, left foot; G47.33 Obstructive sleep apnea (adult) (pediatric)

== ENCOUNTER → 2025-06-16 11:18 | Outpatient (BNVA) | payer MEDICARE, MEDICAID, SELFPAY | PROVIDERS: PCP Internal Medicine; Visit Provider Internal Medicine | DX: I10 Essential (primary) hypertension (principal); E78.00 Pure hypercholesterolemia, unspecified; R73.02 Impaired glucose tolerance (oral); K21.9 Gastro-esophageal reflux disease without esophagitis; I63.9 Cerebral infarction, unspecified; M21.372 Foot drop, left foot; G47.33 Obstructive sleep apnea (adult) (pediatric) | CPT/HCPCS: 99212 ==